=== PATIENT | female | born 1980 | race Caucasian/White ===

== ENCOUNTER 2020-08-06 08:07 | Emergency (ER) | payer OTHER, SELFPAY ==
[2020-08-06 09:06] VITALS: BP 147/69; PULSE 67; RESP 16; TEMP 37.1; O2SAT 98; BMI 30.2
--- NOTE | 2020-08-06 09:50 | ED_ITS ---
HPI - Skin/Abscess/Foreign Bdy General Chief complaint: Skin/Abscess/Foreign Body Stated complaint: allergic reaction Time Seen by Provider: 08/06/20 09:07 Source: patient Mode of arrival: ambulatory History of Present Illness HPI narrative: For 10-year-old female with a past medical history of asthma presenting to the ED complaining of erythematous scaly rash to chest/back and buttocks since yesterday. Reports mildly uncomfortable, denies fever, chills, lesions in mouth, recent travel, tick/insect bites, new exposures, new or worsening SOB MD complaint: rash Onset (ago): day(s) Related Data Previous Rx's Medication Instructions Recorded triamcinolone acetonide 1 appl TOPICAL BID #80 g 08/06/20 Allergies Allergy/AdvReac Type Severity Reaction Status Date / Time Sulfa (Sulfonamide Allergy Mild ITCHING Unverified 04/11/20 15:08 Antibiotics) [SULFA(SULFONAMIDE ANTIBIOTICS)] naproxen [NAPROXEN] AdvReac Unknown NAUSEA Unverified 04/11/20 15:08 Review of Systems Review of Systems: Constitutional: No Weight loss, No Fever, No Chills ENT/Mouth: No Nasal Congestion, No Sinus Pain, No Hoarseness, No sore throat, No Swallowing Difficulty Cardiovascular: No Chest Pain, chronic SOB Respiratory: No Cough, No Wheezing Musculoskeletal: No joint pain, No Myalgias, No Joint Swelling Skin: No Skin Lesions, + rash Yes all other systems are reviewed and are negative [facility] Past Medical History Attestation statement: The following information was validated with the patient. Medical History (Updated 08/06/20 @ 09:52 by EB Zhu) Asthma Social History Social History Advance Directives: No Advance Directives Information Provided: Yes Physical Exam Vital Signs: Vital Signs: Last Vital Signs Temp 98.7 F 08/06/20 09:06 Pulse 67 08/06/20 09:06 Resp 16 08/06/20 09:06 BP 147/69 H 08/06/20 09:06 Pulse Ox 98 08/06/20 09:06 Body Mass Index 30.2 Const: General: cooperative and healthy appearing Orientation/consciousness: patient oriented x3 Limitations: no limitations HENMT: Head: Yes normal to inspection Ears: hearing grossly normal bilaterally General nose exam: Normal external nose present Face and sinus: Yes normal facial exam Eyes: General: appearance normal, both eyes and all related structures EOM: EOMs intact bilaterally Neck: Neck: Yes normal visual inspection and Yes no meningeal signs Resp: Effort & Inspection: normal respiratory effort, no stridor and not tachypneic Cardio: Rate: regular rate GI: Inspection: Yes normal to inspection Skin: Other: Generalized erythematous macules and papules noted to chest, abdomen, back with Syndros scaling. One lesion on buttock. No surrounding cellulitis, no fluctuance or induration. Spares palms and soles. No mucous membrane involvement Rashes: rashes noted Wounds: no wounds Neuro: General: patient oriented x3 and no meningeal signs Gait exam (Neuro): Normal gait present Extrem: General: Yes normal to inspection MDM - Skin/Abscess/Foreign Bdy MDM Narrative Medical decision making narrative: On exam VSS, NAD/nontoxic-appearing, rash consistent with pityriasis rosea vs ? Contact dermatitis. Discharge Plan Discharge Clinical Impression: Pityriasis rosea Patient Disposition: Home, Self-Care Instructions: Acute Rash (ED) Additional Instructions: Your rash is most consistent with pityriasis rosea, this is a self-limiting rash, topical triamcinolone ointment will help with the itching/rash Wash her hands after use, do not apply to face, or genital area as has potential to discolor skin He should also take Benadryl at night, and Zyrtec during the day If rash persists or is worsening, you have fever, or areas in her mouth, shortness of breath return to the ED Follow-up with medical office rep and her primary care doctor Prescriptions: New triamcinolone acetonide 0.025 % ointment 1 appl topical BID Qty: 80 RF: 0 Referrals: Elizabeth Benavides PA [Physician Webbing Inspector] - 2 days Devante Theodore MD [Physician] - 2 days
== END 2020-08-06 10:00 | disposition home or self-care (01) ==
PROVIDERS: Emergency Provider Emergency Medicine Emergency Medical Services; PCP Internal Medicine
DX: L42 Pityriasis rosea (principal)
CPT/HCPCS: 99283

== ENCOUNTER 2020-10-30 09:16 | Emergency (ER) | payer OTHER, SELFPAY ==
--- NOTE | ~2020-10-30 | XR_ITS ---
EXAMINATION: XR LUMBOSACRAL SPINE CLINICAL INFORMATION: Low back pain COMPARISON: None TECHNIQUE: Three views of the lumbosacral spine. FINDINGS: There are 5 nonrib bearing lumbar vertebra. There is mild scoliosis convex left. No acute fracture, spondylolisthesis, spondylolysis identified. There is some increased density about the L5-S1 facet joints bilaterally consistent with some degree of facet arthropathy. There is a limbus vertebra involving the anterior superior aspect of the L2 vertebra. Sacroiliac joints unremarkable. Pedicles intact. XR/XR lumbar spine 2-3V IMPRESSION: No acute fracture, spinal listhesis, or spondylolysis. Facet arthropathy bilaterally at the L5-S1 level with mild scoliosis.
[2020-10-30 09:25] VITALS: BP 103/51; PULSE 81; RESP 14; TEMP 36.5; O2SAT 97; BMI 31.5
--- NOTE | 2020-10-30 10:10 | ED.BACK ---
HPI - Back Pain/Injury General Chief Complaint: Back Pain/Injury Stated Complaint: back pain Time Seen by Provider: 10/30/20 09:49 Source: patient Mode of arrival: ambulatory Limitations: no limitations History of Present Illness HPI Narrative: 40 y/o female with history of chronic low back pain presents with 2 days of worsening non-traumatic low back pain. She denies injury or heavy lifting. She states the pain does not radiate and she denies numbness, tingling or weakness in her legs. She feels a bump in the middle of her lower back that is tender to touch. She states the pain was so bad this morning she could barely get out of bed. She took ibuprofen with no improvement last night. She denies incontinence. No fevers or history of IVDA. MD elicited complaint: back pain Pertinent past history: prior back pain Onset (ago): day(s) (2) Timing: constant and progressively worsening Severity: severe Similar Symptoms Previously: Yes Quality: aching and spasming Location: lumbar spine, right lower back and left lower back Radiation: none Exacerbating factors: movement, walking and coughing/sneezing Relieving factors: immobilization Context: unknown Associated symptoms: denies other symptoms Treatments prior to arrival: cold therapy Work related injury: No Related Data Previous Rx's Medication Instructions Recorded triamcinolone acetonide 1 appl TOPICAL BID #80 g 08/06/20 cyclobenzaprine 10 mg PO TID PRN #10 tab 10/30/20 hydrocodone-acetaminophen 1 tab PO Q6H PRN #8 tab 10/30/20 ibuprofen 600 mg PO Q8H PRN #20 tab 10/30/20 lidocaine [Lidoderm] 1 patch TOPICAL DAILY #15 ea 10/30/20 Allergies Allergy/AdvReac Type Severity Reaction Status Date / Time Sulfa (Sulfonamide Allergy Mild ITCHING Unverified 04/11/20 15:08 Antibiotics) [SULFA(SULFONAMIDE ANTIBIOTICS)] naproxen [NAPROXEN] AdvReac Unknown NAUSEA Unverified 04/11/20 15:08 Review of Systems Review of Systems: Constitutional: No Fever, No Chills Cardiovascular: No Chest Pain Respiratory: No Cough, No Sputum Gastrointestinal: No Nausea, No Vomiting, No Diarrhea, No abdominal Pain Genitourinary: No Dysuria, No Urinary Frequency, No Hematuria, No incontinence Musculoskeletal: + joint pain, + Myalgias Skin: No Skin Lesions, No rash Neuro: No Weakness, No Numbness Heme/Lymph: No Bruising, No Lymphadenopathy PMFSH Past Medical History Attestation statement: The following information was validated with the patient. Medical History Anxiety Asthma Depression Social History Social History Smoked in Last 30 Days: No Use of substances other than those prescribed or required for medical reasons: No Advance Directives: No Advance Directives Information Provided: No Physical Exam Vital Signs: Vital Signs: Last Vital Signs Temp 97.7 F 10/30/20 09:25 Pulse 81 10/30/20 09:25 Resp 14 10/30/20 09:25 BP 103/51 L 10/30/20 09:25 Pulse Ox 97 10/30/20 09:25 Body Mass Index 31.5 Appearance: Alert. Oriented X3. No acute distress. HEENT: normal inspection CVS: Normal heart rate and rhythm. Pulses normal. Respiratory: No respiratory distress. Skin: Skin warm and dry. Normal skin color. Normal skin turgor. No rashes. Extremities: atraumatic, no edema Back: bilateral middle lumbar area with soft tissue tenderness and palpable spasm of the lumbar fascia centrally with tenderness. limited spinal flexion due to pain Neuro: Oriented X 3. No motor deficit. No sensory deficit. Ambulates with slow but steady gait Course Course Course Narrative: 40 y/o female presenting with acute on chronic LBP. No red flag symptoms. No neurological deficits. Will get lumbar spine XR, medicate and ressess. Reevaluation(s) Reevaluation #1: XR negative. Symptoms slightly improved with muscle relaxer and NSAID. Her pain is likely due to muscular strain and spasm. Will treat symptomatically and have her follow up with her PCP. Warning signs to return were reviewed. Stable for d/c. MDM - Back Pain/Injury Differential Diagnosis Differential diagnosis: Likely lumbar radiculopathy, sciatica, strain of lumbar region, thoracic back pain and discitis Critical Care Time Critical Care Time Critical Care Time: No Discharge Plan Discharge Clinical Impression: Strain of lumbar region Qualifiers: Encounter type: initial encounter Qualified Code(s): S39.012A - Strain of muscle, fascia and tendon of lower back, initial encounter Patient Disposition: Home, Self-Care Instructions: Low Back Strain (ED), Lower Back Exercises (ED) Additional Instructions: Your x-ray today was normal. Your pain is likely due to muscular strain and spasm. No bending, lifting or twisting. Use ice several times per day for 20 minutes at a time for the next 48 hours and then change to heat. Take medications as prescribed to help with pain and discomfort. Follow up with your Primary Care Doctor this week. If your pain worsens, if you develop new numbness, tingling, weakness, loss of function or incontinence call 911 or come back to the ER right away for evaluation. Prescriptions: New cyclobenzaprine 10 mg tablet 10 mg PO TID PRN (Reason: muscle spasm) Qty: 10 RF: 0 lidocaine [Lidoderm] 5 % adhesive patch,medicated 1 patch topical DAILY Qty: 15 RF: 0 ibuprofen 600 mg tablet 600 mg PO Q8H PRN (Reason: pain) Qty: 20 RF: 0 hydrocodone-acetaminophen 5-325 mg tablet 1 tab PO Q6H PRN (Reason: pain) Qty: 8 RF: 0 No Action triamcinolone acetonide 0.025 % ointment 1 appl topical BID Qty: 80 RF: 0
[2020-10-30] MEDS: Cyclobenzaprine HCl 10 MG TABLET PO (10:26)
[2020-10-30] MEDS: Lidocaine 4 % Patch ADH..PATCH 1 PATCH TRANSDERMA (10:26)
[2020-10-30] MEDS: Ketorolac Tromethamine 30 MG/ML VIAL IM (10:27)
== END 2020-10-30 11:51 | disposition home or self-care (01) ==
PROVIDERS: Emergency Provider Emergency Medicine Emergency Medical Services; PCP Internal Medicine
DX: S39.012A Strain of muscle, fascia and tendon of lower back, initial encounter (principal); X58.XXXA Exposure to other specified factors, initial encounter; Y93.9 Activity, unspecified; Y92.9 Unspecified place or not applicable; Y99.9 Unspecified external cause status
CPT/HCPCS: 72100; 96372; 99283; 99284; J1885

== ENCOUNTER 2022-06-25 13:41 | Emergency (ER) | payer OTHER, SELFPAY ==
--- NOTE | ~2022-06-25 | US_ITS ---
EXAMINATION: US VENOUS WITH DOPPLER UPPER EXTREMITY, LEFT CLINICAL INFORMATION: Left arm pain. Question DVT COMPARISON: None TECHNIQUE: Ultrasound of the upper extremity is performed using compression sonography and color and pulse Doppler flow with assessment of augmentation of flow. There is also imaging and Doppler assessment of the jugular and subclavian veins. Spectral analysis with color-flow imaging is performed. FINDINGS: Respiratory variation, normal compression, and augmented flow are noted throughout the upper extremity including the axillary, brachial, cubital, and radial and ulnar veins. There is normal flow in the internal jugular and subclavian veins. There is no visible deep or superficial thrombophlebitis. If the patient's symptoms progress, a followup ultrasound in 5 -7 days might be of value to exclude proximal propagation from a nonvisualized distal arm vein. US/US venous duplex UE LT IMPRESSION: No DVT demonstrated in the left upper extremity.
--- NOTE | ~2022-06-25 | XR_ITS ---
EXAMINATION: XR FOREARM, LEFT CLINICAL INFORMATION: Pain. COMPARISON: None TECHNIQUE: AP and lateral views of the left forearm were obtained. FINDINGS: The bones and soft tissues are normal. No fracture. Imaged portions of the elbow and wrist are unremarkable. XR/XR forearm LT 2V IMPRESSION: Normal left forearm.
[2022-06-25 14:25] VITALS: BP 146/71; PULSE 81; RESP 16; TEMP 36.6; O2SAT 97; BMI 34.0
--- NOTE | 2022-06-25 14:27 | ECG_ITS ---
Test Reason : l arm pain Blood Pressure : / mmHG Vent. Rate : 078 BPM Atrial Rate : 078 BPM P-R Int : 136 ms QRS Dur : 088 ms QT Int : 392 ms P-R-T Axes : 046 005 -03 degrees QTc Int : 446 ms Poor data quality Normal sinus rhythm Possible Anterior infarct , age undetermined Abnormal ECG When compared with ECG of 15-APR-2020 11:55, Inverted T waves have replaced nonspecific T wave abnormality in Inferior leads Referred By: Alexx Saul Electronically Signed By:Ck Bustillos
--- NOTE | 2022-06-25 14:28 | ED.EXTPRO ---
HPI - Extremity Problem General Chief complaint: Extremity Injury, Upper <EB Sierra - Last Filed: 06/28/22 09:50> Stated complaint: l arm pain <EB Sierra - Last Filed: 06/28/22 09:50> Time Seen by Provider: 06/25/22 14:25 <EB Sierra - Last Filed: 06/28/22 09:50> Source: patient <Priscilla Vaughn BREN Reese - Last Filed: 06/25/22 17:42> Mode of arrival: ambulatory <Priscilla Johana Reese CNP - Last Filed: 06/25/22 17:42> Limitations: no limitations <Priscilla Reese CNP - Last Filed: 06/25/22 17:42> History of Present Illness HPI Narrative: Patient is a 42-year-old female who presents to emergency department for evaluation of left elbow pain. She states that the pain starts at the elbow and radiates to the forearm. Onset of pain was about 3-4 days ago. She denies any known injury. 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 She denies any redness, deformity, rashes, wounds, lesions. Denies any numbness or tingling to the extremity. She states that she has an appointment with her primary care provider next week, in further states that she came to the emergency department with her significant other who was being seen so she thought she would have this evaluated here. Denies any chest pain, palpitations, shortness of breath, difficulty breathing <Priscilla Reese CNP - Last Filed: 06/25/22 17:42> Related Data Home medications: Previous Rx's Medication Instructions Recorded triamcinolone acetonide 0.025 % 1 appl topical BID #80 grams 08/06/20 topical ointment cyclobenzaprine 10 mg tablet 10 mg PO TID PRN muscle spasm #10 10/30/20 tabs hydrocodone 5 mg-acetaminophen 325 1 tab PO Q6H PRN pain #8 tabs 10/30/20 mg tablet ibuprofen 600 mg tablet 600 mg PO Q8H PRN pain #20 tabs 10/30/20 lidocaine 5 % topical patch 1 patch topical DAILY #15 ea 10/30/20 (Lidoderm) <EB Sierra - Last Filed: 06/28/22 09:50> Allergies/Adverse reactions: Allergies Allergy/AdvReac Type Severity Reaction Status Date / Time Sulfa (Sulfonamide Allergy Mild ITCHING Unverified 04/11/20 15:08 Antibiotics) [SULFA(SULFONAMIDE ANTIBIOTICS)] naproxen [NAPROXEN] AdvReac Unknown NAUSEA Unverified 04/11/20 15:08 <EB Sierra - Last Filed: 06/28/22 09:50> Review of Systems Review of Systems: Musculoskeletal: Positive left arm pain as noted in HPI <Priscilla Reese CNP - Last Filed: 06/25/22 17:42> [facility] Past Medical History Attestation statement: The following information was validated with the patient. <Priscilla Reese CNP - Last Filed: 06/25/22 17:42> Source: old records reviewed <Priscilla Reese CNP - Last Filed: 06/25/22 17:42> Medical History: Medical History Anxiety Asthma Depression <EB Sierra - Last Filed: 06/28/22 09:50> Social History Social History: Social History Advance Directives: No Advance Directives Information Provided: No <EB Sierra - Last Filed: 06/28/22 09:50> Physical Exam Vital Signs: Vital Signs: Last Vital Signs Temp 98 F 06/25/22 14:25 Pulse 81 06/25/22 14:25 Resp 16 06/25/22 14:25 BP 146/71 H 06/25/22 14:25 Pulse Ox 97 06/25/22 14:25 O2 Del Method 06/25/22 14:25 BMI result Body Mass Index 34.0 <EB Sierra - Last Filed: 06/28/22 09:50> Vital Signs: Last Vital Signs Temp 98 F 06/25/22 14:25 Pulse 81 06/25/22 14:25 Resp 16 06/25/22 14:25 BP 146/71 H 06/25/22 14:25 Pulse Ox 97 06/25/22 14:25 O2 Del Method 06/25/22 14:25 BMI result Body Mass Index 34.0 <Priscilla Reese CNP - Last Filed: 06/25/22 17:42> Appearance: Alert.?Oriented to person, place and time. No acute distress.?Normal affect. Eyes: Pupils equal, round and reactive to light.? ENT: Pharynx normal.?? Neck: Normal inspection.? Neck supple.?? CVS: Heart sounds normal. Normal heart rate and rhythm.? Pulses normal.?? Respiratory: No respiratory distress.? Lung sounds clear to auscultation bilaterally?? Abdomen: Soft and non-tender. Skin: Skin warm and dry.? Normal skin color.? Normal skin turgor.?? Extremities: No lower extremity edema.? Mild localized swelling over the medial epicondyle of left elbow, no erythema, no warmth. Tenderness upon palpation over the medial epicondyle, worsening pain with resisted wrist flexion and passive extension. 2+ radial pulse Neuro: Moves all extremities spontaneously. Sensation intact bilaterally. No focal neuro deficits. Ambulates with normal steady gait. <Priscilla Reese CNP - Last Filed: 06/25/22 17:42> Course Course Course Narrative: SUNIL; presents to the ED for left arm pain without trauma. no chest or neck pain. states feel swollen. patient states no trauma. Arm she states feel swollen. negative for any ertyhema, ecchymosis, or deformity. positive for forearm and anticupbital tendernss. EKG, labs, and US of arm ordered. <EB Sierra - Last Filed: 06/28/22 09:50> Reevaluation(s) Reevaluation #1: Patient is a 42-year-old female who presents emergency department for evaluation of atraumatic left forearm/elbow pain. Reviewed RME above. Patient is well-appearing at the time of examination, full range of motion to left elbow, wrist, and shoulder. Extremities neurovascularly intact distally. Not consistent with any septic arthritis. Reviewed labs, CBC, coags, CMP overall unremarkable. Troponin <3.5, EKG revealing normal sinus rhythm without acute ischemic findings, do not suspect left arm pain to be secondary to ACS at this time. XR reveals no acute abnormalities, ultrasound is negative for DVT. History and physical examination most consistent with tendinopathy of the medial elbow. Advised rest, avoidance of exacerbating factors, NSAID as an anti-inflammatory in addition to Tylenol, OTC elbow braces from pharmacy, outpatient follow-up primary care provider. Reviewed worrisome signs and symptoms to return back to the emergency department for. All questions answered. She was discharged in stable condition. <Priscilla Reese CNP - Last Filed: 06/25/22 17:42> Time: 17:29 <Priscilla Reese CNP - Last Filed: 06/25/22 17:42> MDM - Extremity (Nontraumatic) Medical Records Attestation: I reviewed the patient's medical records. <Priscilla Reese CNP - Last Filed: 06/25/22 17:42> Lab Data Attestation: I reviewed the patient's lab results. <Priscilla Reese CNP - Last Filed: 06/25/22 17:42> Result diagrams: : 06/25/22 14:44 06/25/22 14:44 <EB Sierra - Last Filed: 06/28/22 09:50> Labs: Lab Results 06/25/22 06/25/22 06/25/22 Range/Units 14:44 14:44 14:44 WBC 6.9 (4.8-10.8) X10*3/uL RBC 4.46 (4.20-5.50) X10*6/uL Hgb 12.9 (12.0-16.0) g/dl Hct 39.9 (37.0-47.0) % MCV 89.5 (80.0-98.0) fL MCH 28.9 (27.0-33.0) pg MCHC 32.3 (31.0-35.0) g/dl RDW 12.9 (11.0-16.0) % Plt Count 267 (160-400) X10*3/uL MPV 10.8 (9.4-12.3) fL Immature Gran % (Auto) 0.3 (0.0-0.4) % Neut % (Auto) 53.7 (45-73) % Lymph % (Auto) 36.9 (20-40) % Campbell % (Auto) 6.9 (2-11) % Eos % (Auto) 1.8 (0-4) % Baso % (Auto) 0.4 (0-2) % Lymph # (Auto) 2.5 (1.2-4.9) X10*3/uL Campbell # (Auto) 0.5 (0.1-1.2) X10*3/uL Eos # (Auto) 0.1 (0.0-0.4) X10*3/uL Baso # (Auto) 0.0 (0.0-0.2) X10*3/uL Abs Immat Gran (auto) 0.02 (0.00-0.03) X10*3/uL Absolute Neuts (auto) 3.7 (2.0-8.3) x10*3/uL Absolute Nucleated RBC 0.000 (0.0-0.012) X10*3/uL Nucleated RBC % (auto) 0.0 (0.0-0.2) /100WBC PT 10.5 (10.0-13.1) SEC INR 0.9 (0.9-1.1) APTT 33.1 (26.0-36.4) SEC Sodium 138 (135-145) mmol/L Potassium 4.2 (3.3-5.1) mmol/L Chloride 106 (96-108) mmol/L Carbon Dioxide 25 (22-29) mmol/L Anion Gap 11 L (12-20) BUN 18 H (9-16) mg/dL Creatinine 0.78 (0.5-1.4) mg/dL Estim Creat Clear Calc 91.9 Estimated GFR > 60 Random Glucose 122 H (60-115) mg/dL Calcium 9.8 (8.4-10.2) mg/dL Total Bilirubin 0.2 (0.0-1.0) mg/dL AST 11 (5-31) U/L ALT 17 (0-31) U/L Alkaline Phosphatase 110 (39-117) U/L Total Creatine Kinase 49 (26-140) U/L Troponin I High Sens (<3.5-17.0) ng/L Total Protein 6.9 (6.5-8.0) g/dL Albumin 4.0 (3.5-5.0) g/dL 12/01/22 Range/Units 14:44 WBC (4.8-10.8) X10*3/uL RBC (4.20-5.50) X10*6/uL Hgb (12.0-16.0) g/dl Hct (37.0-47.0) % MCV (80.0-98.0) fL MCH (27.0-33.0) pg MCHC (31.0-35.0) g/dl RDW (11.0-16.0) % Plt Count (160-400) X10*3/uL MPV (9.4-12.3) fL Immature Gran % (Auto) (0.0-0.4) % Neut % (Auto) (45-73) % Lymph % (Auto) (20-40) % Campbell % (Auto) (2-11) % Eos % (Auto) (0-4) % Baso % (Auto) (0-2) % Lymph # (Auto) (1.2-4.9) X10*3/uL Campbell # (Auto) (0.1-1.2) X10*3/uL Eos # (Auto) (0.0-0.4) X10*3/uL Baso # (Auto) (0.0-0.2) X10*3/uL Abs Immat Gran (auto) (0.00-0.03) X10*3/uL Absolute Neuts (auto) (2.0-8.3) x10*3/uL Absolute Nucleated RBC (0.0-0.012) X10*3/uL Nucleated RBC % (auto) (0.0-0.2) /100WBC PT (10.0-13.1) SEC INR (0.9-1.1) APTT (26.0-36.4) SEC Sodium (135-145) mmol/L Potassium (3.3-5.1) mmol/L Chloride (96-108) mmol/L Carbon Dioxide (22-29) mmol/L Anion Gap (12-20) BUN (9-16) mg/dL Creatinine (0.5-1.4) mg/dL Estim Creat Clear Calc Estimated GFR Random Glucose (60-115) mg/dL Calcium (8.4-10.2) mg/dL Total Bilirubin (0.0-1.0) mg/dL AST (5-31) U/L ALT (0-31) U/L Alkaline Phosphatase (39-117) U/L Total Creatine Kinase (26-140) U/L Troponin I High Sens < 3.5 (<3.5-17.0) ng/L Total Protein (6.5-8.0) g/dL Albumin (3.5-5.0) g/dL <EB Sierra - Last Filed: 06/28/22 09:50> Lab Results 06/25/22 06/25/22 06/25/22 Range/Units 14:44 14:44 14:44 WBC 6.9 (4.8-10.8) X10*3/uL RBC 4.46 (4.20-5.50) X10*6/uL Hgb 12.9 (12.0-16.0) g/dl Hct 39.9 (37.0-47.0) % MCV 89.5 (80.0-98.0) fL MCH 28.9 (27.0-33.0) pg MCHC 32.3 (31.0-35.0) g/dl RDW 12.9 (11.0-16.0) % Plt Count 267 (160-400) X10*3/uL MPV 10.8 (9.4-12.3) fL Immature Gran % (Auto) 0.3 (0.0-0.4) % Neut % (Auto) 53.7 (45-73) % Lymph % (Auto) 36.9 (20-40) % Campbell % (Auto) 6.9 (2-11) % Eos % (Auto) 1.8 (0-4) % Baso % (Auto) 0.4 (0-2) % Lymph # (Auto) 2.5 (1.2-4.9) X10*3/uL Campbell # (Auto) 0.5 (0.1-1.2) X10*3/uL Eos # (Auto) 0.1 (0.0-0.4) X10*3/uL Baso # (Auto) 0.0 (0.0-0.2) X10*3/uL Abs Immat Gran (auto) 0.02 (0.00-0.03) X10*3/uL Absolute Neuts (auto) 3.7 (2.0-8.3) x10*3/uL Absolute Nucleated RBC 0.000 (0.0-0.012) X10*3/uL Nucleated RBC % (auto) 0.0 (0.0-0.2) /100WBC PT 10.5 (10.0-13.1) SEC INR 0.9 (0.9-1.1) APTT 33.1 (26.0-36.4) SEC Sodium 138 (135-145) mmol/L Potassium 4.2 (3.3-5.1) mmol/L Chloride 106 (96-108) mmol/L Carbon Dioxide 25 (22-29) mmol/L Anion Gap 11 L (12-20) BUN 18 H (9-16) mg/dL Creatinine 0.78 (0.5-1.4) mg/dL Estim Creat Clear Calc 91.9 Estimated GFR > 60 Random Glucose 122 H (60-115) mg/dL Calcium 9.8 (8.4-10.2) mg/dL Total Bilirubin 0.2 (0.0-1.0) mg/dL AST 11 (5-31) U/L ALT 17 (0-31) U/L Alkaline Phosphatase 110 (39-117) U/L Total Creatine Kinase 49 (26-140) U/L Troponin I High Sens (<3.5-17.0) ng/L Total Protein 6.9 (6.5-8.0) g/dL Albumin 4.0 (3.5-5.0) g/dL 06/25/22 Range/Units 14:44 WBC (4.8-10.8) X10*3/uL RBC (4.20-5.50) X10*6/uL Hgb (12.0-16.0) g/dl Hct (37.0-47.0) % MCV (80.0-98.0) fL MCH (27.0-33.0) pg MCHC (31.0-35.0) g/dl RDW (11.0-16.0) % Plt Count (160-400) X10*3/uL MPV (9.4-12.3) fL Immature Gran % (Auto) (0.0-0.4) % Neut % (Auto) (45-73) % Lymph % (Auto) (20-40) % Campbell % (Auto) (2-11) % Eos % (Auto) (0-4) % Baso % (Auto) (0-2) % Lymph # (Auto) (1.2-4.9) X10*3/uL Campbell # (Auto) (0.1-1.2) X10*3/uL Eos # (Auto) (0.0-0.4) X10*3/uL Baso # (Auto) (0.0-0.2) X10*3/uL Abs Immat Gran (auto) (0.00-0.03) X10*3/uL Absolute Neuts (auto) (2.0-8.3) x10*3/uL Absolute Nucleated RBC (0.0-0.012) X10*3/uL Nucleated RBC % (auto) (0.0-0.2) /100WBC PT (10.0-13.1) SEC INR (0.9-1.1) APTT (26.0-36.4) SEC Sodium (135-145) mmol/L Potassium (3.3-5.1) mmol/L Chloride (96-108) mmol/L Carbon Dioxide (22-29) mmol/L Anion Gap (12-20) BUN (9-16) mg/dL Creatinine (0.5-1.4) mg/dL Estim Creat Clear Calc Estimated GFR Random Glucose (60-115) mg/dL Calcium (8.4-10.2) mg/dL Total Bilirubin (0.0-1.0) mg/dL AST (5-31) U/L ALT (0-31) U/L Alkaline Phosphatase (39-117) U/L Total Creatine Kinase (26-140) U/L Troponin I High Sens < 3.5 (<3.5-17.0) ng/L Total Protein (6.5-8.0) g/dL Albumin (3.5-5.0) g/dL <Priscilla Reese CNP - Last Filed: 06/25/22 17:42> Imaging Data Venous US: Radiologist's impression: US/US venous duplex UE LT IMPRESSION: No DVT demonstrated in the left upper extremity. <Priscilla Reese CNP - Last Filed: 06/25/22 17:42> XR forearm: Radiologist's impression: XR/XR forearm LT 2V IMPRESSION: Normal left forearm. <Priscilla Reese CNP - Last Filed: 06/25/22 17:42> ECG Data Attestation EKG: I personally reviewed and interpreted this ECG as follows: <Priscilla Reese CNP - Last Filed: 06/25/22 17:42> ECG interpretation date: 06/25/22 <Priscilla Reese CNP - Last Filed: 06/25/22 17:42> Interpretation: Rate: 78 Rhythm:? Normal sinus rhythm [place]:? Normal Normal P waves.? Normal CHRIS.?? Normal QRS complex.?? ST T wave :??No ST elevation, no ST depression qTC: 446 prior studies:? None available for review The study has been interpreted contemporaneously by me. <Priscilla Reese CNP - Last Filed: 06/25/22 17:42> Discharge Plan Discharge Clinical Impression: Left elbow tendinitis <EB Sierra - Last Filed: 06/28/22 09:50> Patient Disposition: Home, Self-Care <EB Sierra - Last Filed: 06/28/22 09:50> Instructions: Tennis Elbow (ED) <EB Sierra - Last Filed: 06/28/22 09:50> Additional Instructions: You can take ibuprofen 200 mg, 3 tablets (600mg) every 6-8 hours as needed for pain, in addition to Tylenol 500 mg, 2 tablets (1,000mg) every 4-6 hours as needed for pain, but not to exceed 3 doses daily (3,000mg).? OTC braces for elbow from pharmacy. Follow-up with your primary care provider as needed <BE Sierra - Last Filed: 06/28/22 09:50> Prescriptions: No Action triamcinolone acetonide 0.025 % ointment 1 appl topical BID Qty: 80 0RF cyclobenzaprine 10 mg tablet 10 mg PO TID PRN (Reason: muscle spasm) Qty: 10 0RF lidocaine [Lidoderm] 5 % adhesive patch,medicated 1 patch topical DAILY Qty: 15 0RF Rx Instructions: leave on most painful area for up to 12 hrs ibuprofen 600 mg tablet 600 mg PO Q8H PRN (Reason: pain) Qty: 20 0RF hydrocodone-acetaminophen 5-325 mg tablet 1 tab PO Q6H PRN (Reason: pain) Qty: 8 0RF Rx Instructions: for 3 days <EB Sierra - Last Filed: 06/28/22 09:50> Referrals: Physician,Unknown J [Primary Care Provider] - <EB Sierra - Last Filed: 06/28/22 09:50> Interventions: ED Discharge Assessment Last Done: 06/25/22 17:52 <EB Sierra - Last Filed: 06/28/22 09:50> Discharge Date/Time: 06/25/22 17:53 <EB Sierra - Last Filed: 06/28/22 09:50>
[2022-06-25 14:49] LABS: MANUAL DIFF FLAG NO
[2022-06-25 14:51] LABS: Basophils Percent Auto 0.4 % (0-2); Eosinophils Absolute Auto 0.1 X10*3/uL (0.0-0.4); Eosinophils Percent Auto 1.8 % (0-4); Hematocrit 39.9 % (37.0-47.0); Hemoglobin 12.9 g/dl (12.0-16.0); Imm Gran Abs Auto 0.02 X10*3/uL (0.00-0.03); Imm Gran Pct Auto 0.3 % (0.0-0.4); Lymphocytes Absolute Auto 2.5 X10*3/uL (1.2-4.9); Lymphocytes Percent Auto 36.9 % (20-40); Mean Corpuscular HGB Conc 32.3 g/dl (31.0-35.0); Mean Corpuscular Hemoglobin 28.9 pg (27.0-33.0); Mean Corpuscular Volume 89.5 fL (80.0-98.0); Mean Platelet Volume 10.8 fL (9.4-12.3); Monocytes Absolute Auto 0.5 X10*3/uL (0.1-1.2); Monocytes Percent Auto 6.9 % (2-11); Neutrophils Absolute Auto 3.7 x10*3/uL (2.0-8.3); Neutrophils Percent Auto 53.7 % (45-73); Platelet Count 267 X10*3/uL (160-400); Red Blood Count 4.46 X10*6/uL (4.20-5.50); Red Cell Distribution Width 12.9 % (11.0-16.0); White Blood Count 6.9 X10*3/uL (4.8-10.8)
[2022-06-25 14:58] LABS: INTERNATIONAL NORM RATIO 0.9 (0.9-1.1); Prothrombin Time 10.5 SEC (10.0-13.1)
[2022-06-25 15:00] LABS: Partial Thromboplastin Time 33.1 SEC (26.0-36.4)
[2022-06-25 15:21] LABS: Alanine Aminotransferase 17 U/L (0-31); Alkaline Phosphatase 110 U/L (39-117); Anion Gap 11 (12-20); Aspartate Amino Transferase 11 U/L (5-31); Bilirubin Total 0.2 mg/dL (0.0-1.0); Blood Urea Nitrogen 18 mg/dL (9-16); Calcium 9.8 mg/dL (8.4-10.2); Carbon Dioxide 25 mmol/L (22-29); Chloride 106 mmol/L (96-108); Creatinine Clr Calc Pharmacy 91.9; Estimated Glomerular Filt Rate > 60; Glucose Random 122 mg/dL (60-115); Potassium 4.2 mmol/L (3.3-5.1); Sodium 138 mmol/L (135-145); Total Protein 6.9 g/dL (6.5-8.0)
[2022-06-25 15:28] LABS: Troponin-I High Sensitivity < 3.5 ng/L (<3.5-17.0)
== END 2022-06-25 17:53 | disposition home or self-care (01) ==
PROVIDERS: Physician Assistant; Emergency Provider Emergency Medicine
DX: M77.12 Lateral epicondylitis, left elbow (principal); M79.602 Pain in left arm
CPT/HCPCS: 36415; 73090; 80053; 82550; 84484; 85025; 85610; 85730; 93005; 93971; 99283; 99284

== ENCOUNTER 2023-01-29 08:06 | Emergency (ER) | payer OTHER, SELFPAY ==
--- NOTE | 2023-01-29 08:21 | ED.LOWEXIN ---
HPI - Extremity Injury (Lower) General Chief Complaint: Extremity Injury, Lower Stated Complaint: ankle injury Time Seen by Provider: 01/29/23 08:14 Source: patient, RN notes reviewed and old records reviewed Mode of arrival: ambulatory History of Present Illness HPI Narrative: 42-year-old female with no significant past medical history presenting to the ED complaining of right ankle pain radiating to right foot s/p jumping off pool ladder into pool yesterday and hitting ankle on ladder. Has been ambulatory since the incident with discomfort noted today. Denies injury to other area, trauma or LOC, numbness/tingling or weakness MD complaint: ankle injury and foot injury Onset (ago): day(s) Related Data Previous Rx's Medication Instructions Recorded triamcinolone acetonide 0.025 % 1 appl topical BID #80 grams 08/06/20 topical ointment cyclobenzaprine 10 mg tablet 10 mg PO TID PRN muscle spasm #10 10/30/20 tabs hydrocodone 5 mg-acetaminophen 325 1 tab PO Q6H PRN pain #8 tabs 10/30/20 mg tablet ibuprofen 600 mg tablet 600 mg PO Q8H PRN pain #20 tabs 10/30/20 lidocaine 5 % topical patch 1 patch topical DAILY #15 ea 10/30/20 (Lidoderm) Allergies Allergy/AdvReac Type Severity Reaction Status Date / Time Sulfa (Sulfonamide Allergy Mild ITCHING Verified 01/29/23 08:30 Antibiotics) [SULFA(SULFONAMIDE ANTIBIOTICS)] naproxen [NAPROXEN] AdvReac Unknown NAUSEA Verified 01/29/23 08:30 Review of Systems Review of Systems: Constitutional: No Fever, No Chills ENT/Mouth: No Ear Pain, No Nasal Congestion, No sore throat, No Rhinorrhea, No Swallowing Difficulty Cardiovascular: No Chest Pain, No SOB Respiratory: No Cough, No Sputum, No Wheezing Gastrointestinal: No Nausea, No Vomiting, No Abdominal pain Musculoskeletal: + joint pain, No Myalgias, + Joint Swelling Skin: No Skin Lesions, No rash Neuro: No Weakness, No Numbness, No Paresthesias Yes all other systems are reviewed and are negative Constitutional: Constitutional: Reports as per [facility] Past Medical History Attestation statement: The following information was validated with the patient. Source: old records reviewed Medical History Anxiety Asthma Depression Social History Social History Alcohol intake: current Alcohol intake frequency: holidays/special occasions only Smoked in Last 30 Days: No Use of substances other than those prescribed or required for medical reasons: No Advance Directives: No Patient : No Physical Exam Vital Signs: Vital Signs: Last Vital Signs Temp 98.3 F 01/29/23 08:30 Pulse 70 01/29/23 08:30 Resp 18 01/29/23 08:30 BP 102/62 01/29/23 08:30 Pulse Ox 96 01/29/23 08:30 O2 Del Method Room Air 01/29/23 08:30 BMI result Body Mass Index 28.9 Const: General: cooperative, healthy appearing and no acute distress Orientation/consciousness: patient oriented x3 Limitations: no limitations HEENT: Head: Yes normal to inspection and Yes atraumatic Ears: hearing grossly normal bilaterally General nose exam: Normal external nose present Face and sinus: Yes normal facial exam Eyes: General: appearance normal, both eyes and all related structures EOM: EOMs intact bilaterally Neck: Neck: Yes normal visual inspection and Yes no meningeal signs Resp: Effort & Inspection: normal respiratory effort and no respiratory distress Cardio: Rate: regular rate Peripheral pulses: dorsalis pedis present Skin: Rashes: no rashes Wounds: no wounds Neuro: General: patient oriented x3, tone normal and no meningeal signs Gait exam (Neuro): Normal gait present Extrem: Other: Right lateral malleolus with healing ecchymosis and slight swelling. + tenderness to palpation to right lateral malleolus. Foot nontender. NV intact. Limited ROM to ankle secondary to pain. right knee nontender Course Course Course Narrative: 910--XR foot RT min 3V/XR ankle RT min 3V IMPRESSION: Unremarkable right and ankle and right foot. > air cast applied for comfort & stability Results discussed with patient including worrisome signs and symptoms and strict return precautions, and when to return to the emergency department. They verbalized understanding and feel safe for discharge at this time. Medical Decision Making Medical Decision Making MDM Narrative: 42-year-old female with no significant past medical history presenting to the ED complaining of right ankle pain radiating to right foot s/p jumping off pool ladder into pool yesterday and hitting ankle on ladder. On exam vital signs stable, NAD, nontoxic appearing physical exam as noted above right ankle lateral malleolar ecchymosis with mild swelling and tenderness. Limited ROM secondary to pain. Neurovascular intact. Concern for ankle sprain/contusion vs fracture. Low suspicion for septic joint/arthritis Plan: X-rays Please refer to course for remaining clinical decision making, interpretation of labs/imaging results, and discussions with consultants and/or family members. Differential Diagnosis Differential Diagnoses: The differential diagnosis associated with the presentation includes As above Radiology Impression Discussion of test interpretation with radiology: I have reviewed the radiologist's reading. External Record Review External record reviewed: Inpatient record, Office record, Outpatient record, Prior outpatient labs, Prior outpatient radiology, Primary care record and Outside ED record Tests considered The following testing was considered but not selected: As above Discharge Plan Discharge Clinical Impression: Ankle sprain and strain Patient Disposition: Home, Self-Care Instructions: Ankle Sprain (DC) Additional Instructions: Your x-rays are unremarkable. You likely sprained her ankle Ice and elevate Take Tylenol and Motrin for pain/swelling healing wear Aircast as needed Follow-up with her doctor Is symptoms persist or worsen return to the ED Prescriptions: No Action triamcinolone acetonide 0.025 % ointment 1 appl topical BID Qty: 80 0RF cyclobenzaprine 10 mg tablet 10 mg PO TID PRN (Reason: muscle spasm) Qty: 10 0RF lidocaine [Lidoderm] 5 % adhesive patch,medicated 1 patch topical DAILY Qty: 15 0RF Rx Instructions: leave on most painful area for up to 12 hrs ibuprofen 600 mg tablet 600 mg PO Q8H PRN (Reason: pain) Qty: 20 0RF hydrocodone-acetaminophen 5-325 mg tablet 1 tab PO Q6H PRN (Reason: pain) Qty: 8 0RF Rx Instructions: for 3 days Referrals: Physician,Unknown J [Primary Care Provider] - 1 week Interventions: ED Discharge Assessment Last Done: 01/29/23 09:56 Discharge Date/Time: 01/29/23 09:56
[2023-01-29 08:30] VITALS: BP 102/62; PULSE 70; RESP 18; TEMP 36.8; O2SAT 96; BMI 28.9
== END 2023-01-29 09:56 | disposition home or self-care (01) ==
PROVIDERS: Emergency Provider Emergency Medicine Emergency Medical Services
DX: S93.401A Sprain of unspecified ligament of right ankle, initial encounter (principal); M79.671 Pain in right foot; W19.XXXA Unspecified fall, initial encounter; Y93.9 Activity, unspecified; Y92.9 Unspecified place or not applicable; Y99.9 Unspecified external cause status; Z79.899 Other long term (current) drug therapy
CPT/HCPCS: 73610; 73630; 99283

== ENCOUNTER 2023-03-07 10:31 | Emergency (ER) | payer OTHER, SELFPAY ==
[2023-03-07] VITALS (8 sets, daily range): BP systolic 90–112; BP diastolic 49–72; PULSE 64–83; RESP 14–19; TEMP 36.6–37; O2SAT 93–98; BMI 29.0
--- NOTE | ~2023-03-07 | XR_ITS ---
EXAMINATION: XR CHEST CLINICAL INFORMATION: SOB and cough COMPARISON: Chest 04/15/2020 TECHNIQUE: Frontal view of the chest was obtained. FINDINGS: The lungs are well-expanded with patchy opacity in the right middle lobe question atelectasis versus developing infiltrate. Heart size and pulmonary vascularity is normal. There is mild elevation of right hemidiaphragm. No gross bony abnormality seen. XR/XR chest 1V IMPRESSION: Patchy opacity right middle lobe question atelectasis versus developing infiltrate.
--- NOTE | 2023-03-07 11:35 | PC.NURSE ---
pt a&ox3, vss, pt comes in from home after having generalized weakness/pain x4 days. pt verbalizes nausea and dizziness but denies vomiting. pt states that it's hard for her to walk long distances because she becomes dizzy and has near syncopal episodes upon exertion. call call placed within reach. will continue to monitor.
--- NOTE | 2023-03-07 12:51 | ECG_ITS ---
Test Reason : near syncope Blood Pressure : / mmHG Vent. Rate : 068 BPM Atrial Rate : 068 BPM P-R Int : 122 ms QRS Dur : 092 ms QT Int : 416 ms P-R-T Axes : 026 007 024 degrees QTc Int : 442 ms Normal sinus rhythm Low voltage QRS Borderline ECG When compared with ECG of 25-JUN-2022 14:36, No significant change was found Referred By: Maneula Rabago Electronically Signed By:KARI MCCANN MD
--- NOTE | 2023-03-07 12:55 | ED_ITS ---
HPI - General Adult General Chief complaint: General Medical Stated complaint: Near syncope/Chills/SOB Time Seen by Provider: 03/07/23 12:51 Source: patient Mode of arrival: ambulatory Limitations: no limitations History of Present Illness HPI narrative: 41-year-old female with no significant medical history presents to the ER for evaluation of 4 days of not feeling well. She states on she woke up with diffuse body aches, subjective fevers and chills, headaches, intermittent shortness of breath. She reports intermittent dry cough as well. She states in the last 2 days she has had 2 episodes of where she almost passed out. She states she was standing at the time. She felt very weak and lightheaded. She did not syncopized. She states she has been extremely nauseous and had significant decreased p.o. intake. She has also had diarrhea but no vomiting. No blood in her diarrhea. She reports her friend who she owns a presents with has similar symptoms. MD complaint: Body aches, near-syncope Onset (ago): day(s) (4) Severity: moderate Quality: aching Pain Consistency: constant Relieving factors: rest Exacerbating factors: movement Associated symptoms: cough, fever/chills, headaches, loss of appetite, malaise, nausea/vomiting, shortness of breath and weakness Treatments prior to arrival: none Related Data Previous Rx's Medication Instructions Recorded triamcinolone acetonide 0.025 % 1 appl topical BID #80 grams 08/06/20 topical ointment cyclobenzaprine 10 mg tablet 10 mg PO TID PRN muscle spasm #10 10/30/20 tabs hydrocodone 5 mg-acetaminophen 325 1 tab PO Q6H PRN pain #8 tabs 10/30/20 mg tablet ibuprofen 600 mg tablet 600 mg PO Q8H PRN pain #20 tabs 10/30/20 lidocaine 5 % topical patch 1 patch topical DAILY #15 ea 10/30/20 (Lidoderm) amoxicillin 875 mg-potassium 1 tab PO BID #14 tabs 03/07/23 clavulanate 125 mg tablet ondansetron 4 mg disintegrating 4 mg PO Q8H PRN nausea and 03/07/23 tablet vomiting #7 tabs Allergies Allergy/AdvReac Type Severity Reaction Status Date / Time Sulfa (Sulfonamide Allergy Mild ITCHING Verified 03/07/23 10:36 Antibiotics) [SULFA(SULFONAMIDE ANTIBIOTICS)] naproxen [NAPROXEN] AdvReac Unknown NAUSEA Verified 03/07/23 10:36 Review of Systems Review of Systems: Yes all other systems are reviewed and are negative [facility] Past Medical History Medical History Anxiety Asthma Depression Social History Social History Alcohol intake: current Alcohol intake frequency: holidays/special occasions only Smoked in Last 30 Days: No Use of substances other than those prescribed or required for medical reasons: No Advance Directives: No Advance Directives Information Provided: Yes Patient : No Physical Exam ED Vital Signs: Vital Signs - 24 hr 03/07/23 10:36 03/07/23 11:22 03/07/23 13:17 Temperature 98 F 97.9 F Pulse Rate 80 70 64 Respiratory Rate 19 16 Blood Pressure 107/72 107/60 103/54 L Pulse Oximetry 98 93 Oxygen Delivery Method Room Air Room Air 03/07/23 13:25 03/07/23 13:23 03/07/23 13:24 Temperature Pulse Rate 83 68 83 Respiratory Rate 14 Blood Pressure 112/70 103/65 112/70 Pulse Oximetry 98 Oxygen Delivery Method Room Air 03/07/23 14:00 03/07/23 14:41 Temperature 98.5 F 98.6 F Pulse Rate 65 66 Respiratory Rate 16 18 Blood Pressure 90/49 L 97/55 L Pulse Oximetry 95 95 Oxygen Delivery Method Room Air Room Air BMI result Body Mass Index 29.0 Appearance: Alert. Oriented X3. No acute distress. Head: normocephalic, atraumatic. Eyes: Pupils equal, round and reactive to light. ENT: Pharynx normal. No tonsillar swelling or exudate. Neck: Normal inspection. Neck supple. CVS: Normal heart rate and rhythm. Pulses normal. Respiratory: No respiratory distress. Breath sounds normal. Abdomen: Soft and nontender. +BS x4 Skin: Skin warm and dry. Normal skin color. Normal skin turgor. No rashes. Extremities: No lower extremity edema. No joint swelling. Neuro/psych: Oriented X 3. No motor deficit. No sensory deficit. CN II-XII intact. Normal speech and cognition. Medications Administered Discontinued Medications Generic Name Dose Route Start Last Admin Trade Name Phani PRN Reason Stop Dose Admin Acetaminophen 975 mg 03/07/23 15:01 03/07/23 15:17 Acetaminophen 325 Mg Tablet PO 03/07/23 15:02 975 mg ONCE ONE Administration Sodium Chloride 1,000 mls @ 999 mls/hr 03/07/23 13:00 03/07/23 14:16 Ns IVCONT 03/07/23 14:00 Infused .Q1H1M JACKI Infusion Ketorolac Tromethamine 30 mg 03/07/23 15:01 03/07/23 15:17 Ketorolac Tromethamine 30 Mg/Ml Vial IVPUSH 03/07/23 15:02 30 mg ONCE ONE Administration Ondansetron HCl 4 mg 03/07/23 12:55 03/07/23 13:18 Ondansetron Hcl 4 Mg/2 Ml Vial IVPUSH 03/07/23 12:56 4 mg ONCE ONE Administration Medical Decision Making Medical Decision Making MDM Narrative: 42-year-old female presents to the ER for evaluation of 4 days of feeling unwell with symptoms including headache, body aches, shortness of breath, cough, nausea, vomiting, diarrhea, near syncope x2. Positive sick contacts with her friend/presents partner. On arrival to the ER patient is afebrile. She is saturating well on room air. She is hemodynamically stable. Lab workup shows some mild leukopenia. No major metabolic derangement or evidence of dehydration. She was given IV fluids, Zofran, Toradol, Tylenol with improvement in her symptoms. COVID and flu were negative. Chest x-ray reviewed, there is a subtle opacity in the right middle lobe. It is possible she aspirated during 1 of her vomiting episodes verses a community-acquired pneumonia. She does have a cough. Will start empiric antibiotics with Augmentin. She continues to saturate well and is in no respiratory distress. At this time she is stable for discharge home. Differential Diagnosis Differential Diagnoses: The differential diagnosis associated with the presentation includes COVID, flu, viral illness, dehydration, gastroenteritis, orthostatic hypotension, pneumonia, bronchitis, colitis Admission/Observation Consideration of admission/observation: Escalation of care including admission/observation considered Recurrent near-syncope, consider observation/admission Lab Data [facility] Lab Attestation statement: I reviewed the patient's lab results. Mild leukopenia, no major metabolic derangement 03/07/23 13:00 03/07/23 13:00 Labs: Lab Results 03/07/23 03/07/23 03/07/23 Range/Units 13:00 13:00 13:00 WBC 4.2 L (4.8-10.8) X10*3/uL RBC 4.37 (4.20-5.50) X10*6/uL Hgb 12.8 (12.0-16.0) g/dl Hct 38.2 (37.0-47.0) % MCV 87.4 (80.0-98.0) fL MCH 29.3 (27.0-33.0) pg MCHC 33.5 (31.0-35.0) g/dl RDW 12.5 (11.0-16.0) % Plt Count 196 D (160-400) X10*3/uL MPV 10.1 (9.4-12.3) fL Immature Gran % (Auto) 0.0 (0.0-0.4) % Neut % (Auto) 49.3 (45-73) % Lymph % (Auto) 38.5 (20-40) % [place] % (Auto) 11.0 (2-11) % Eos % (Auto) 1.0 (0-4) % Baso % (Auto) 0.2 (0-2) % Lymph # (Auto) 1.6 (1.2-4.9) X10*3/uL [place] # (Auto) 0.5 (0.1-1.2) X10*3/uL Eos # (Auto) 0.0 (0.0-0.4) X10*3/uL Baso # (Auto) 0.0 (0.0-0.2) X10*3/uL Abs Immat Gran (auto) 0.00 (0.00-0.03) X10*3/uL Absolute Neuts (auto) 2.1 (2.0-8.3) x10*3/uL Absolute Nucleated RBC 0.000 (0.0-0.012) X10*3/uL Nucleated RBC % (auto) 0.0 (0.0-0.2) /100WBC Sodium 137 (135-145) mmol/L Potassium 3.7 (3.3-5.1) mmol/L Chloride 102 (96-108) mmol/L Carbon Dioxide 26 (22-29) mmol/L Anion Gap 13 (12-20) BUN 13 (9-16) mg/dL Creatinine 0.71 (0.5-1.4) mg/dL Estim Creat Clear Calc 93.1 Estimated GFR > 60 Random Glucose 98 (60-115) mg/dL Calcium 8.9 D (8.4-10.2) mg/dL Magnesium 2.3 (1.6-2.6) mg/dL Total Bilirubin 0.2 (0.0-1.0) mg/dL Direct Bilirubin < 0.2 (0.0-0.5) mg/dL AST 15 (5-31) U/L ALT 15 (0-31) U/L Alkaline Phosphatase 70 (39-117) U/L Total Protein 7.0 (6.5-8.0) g/dL Albumin 3.8 (3.5-5.0) g/dL Urine Color Urine Appearance Urine pH (5.0-9.0) Ur Specific [place] (1.005-1.025) Urine Protein (Neg-Trace) mg/dL Urine Glucose (UA) (Negative) mg/dL Urine Ketones (Negative) mg/dL Urine Blood (Negative) Urine Nitrite (Negative) Ur Leukocyte Esterase (Negative) Urine RBC (0-2) /HPF Urine WBC (0-5) /HPF Ur Squamous Epith Cells (0-2) /HPF Urine Bacteria (None Seen) Hyaline Casts (0-2) /LPF COVID-19 (SHMUEL) Negative (Negative) COVID-19 Clin Com See Note Influenza Type A (TYREL) (Negative) Influenza Type B (TYREL) (Negative) Influenza A & B Note 03/07/23 03/07/23 Range/Units 13:00 13:12 WBC (4.8-10.8) X10*3/uL RBC (4.20-5.50) X10*6/uL Hgb (12.0-16.0) g/dl Hct (37.0-47.0) % MCV (80.0-98.0) fL MCH (27.0-33.0) pg MCHC (31.0-35.0) g/dl RDW (11.0-16.0) % Plt Count (160-400) X10*3/uL MPV (9.4-12.3) fL Immature Gran % (Auto) (0.0-0.4) % Neut % (Auto) (45-73) % Lymph % (Auto) (20-40) % [place] % (Auto) (2-11) % Eos % (Auto) (0-4) % Baso % (Auto) (0-2) % Lymph # (Auto) (1.2-4.9) X10*3/uL [place] # (Auto) (0.1-1.2) X10*3/uL Eos # (Auto) (0.0-0.4) X10*3/uL Baso # (Auto) (0.0-0.2) X10*3/uL Abs Immat Gran (auto) (0.00-0.03) X10*3/uL Absolute Neuts (auto) (2.0-8.3) x10*3/uL Absolute Nucleated RBC (0.0-0.012) X10*3/uL Nucleated RBC % (auto) (0.0-0.2) /100WBC Sodium (135-145) mmol/L Potassium (3.3-5.1) mmol/L Chloride (96-108) mmol/L Carbon Dioxide (22-29) mmol/L Anion Gap (12-20) BUN (9-16) mg/dL Creatinine (0.5-1.4) mg/dL Estim Creat Clear Calc Estimated GFR Random Glucose (60-115) mg/dL Calcium (8.4-10.2) mg/dL Magnesium (1.6-2.6) mg/dL Total Bilirubin (0.0-1.0) mg/dL Direct Bilirubin (0.0-0.5) mg/dL AST (5-31) U/L ALT (0-31) U/L Alkaline Phosphatase (39-117) U/L Total Protein (6.5-8.0) g/dL Albumin (3.5-5.0) g/dL Urine Color Yellow Urine Appearance Clear Urine pH 6.0 (5.0-9.0) Ur Specific [place] 1.020 (1.005-1.025) Urine Protein Trace (Neg-Trace) mg/dL Urine Glucose (UA) Negative (Negative) mg/dL Urine Ketones Trace (Negative) mg/dL Urine Blood Trace H (Negative) Urine Nitrite Negative (Negative) Ur Leukocyte Esterase Small (1+) H (Negative) Urine RBC 3-5 H (0-2) /HPF Urine WBC 6-10 H (0-5) /HPF Ur Squamous Epith Cells 6-10 (0-2) /HPF Urine Bacteria 2+ (None Seen) Hyaline Casts 0-2 (0-2) /LPF COVID-19 (SHMEUL) (Negative) COVID-19 Clin Com Influenza Type A (TYREL) Negative (Negative) Influenza Type B (TYREL) Negative (Negative) Influenza A & B Note See Note Independent Interpretation I performed an independent interpretation of an: EKG and Plain X-Ray Interpretation: EKG with normal sinus rhythm, ventricular rate 60 beats per minute, normal CO interval, normal QTC, no change from prior in June 2022. Chest x-ray with subtle right middle lobe opacity, agreed radiologist read Radiology Impression Discussion of test interpretation with radiology: I have reviewed the radiologist's reading. Radiologist Impression: EXAMINATION: XR CHEST CLINICAL INFORMATION: SOB and cough COMPARISON: Chest 04/15/2020 TECHNIQUE: Frontal view of the chest was obtained. FINDINGS: The lungs are well-expanded with patchy opacity in the right middle lobe question atelectasis versus developing infiltrate. Heart size and pulmonary vascularity is normal. There is mild elevation of right hemidiaphragm. No gross bony abnormality seen. XR/XR chest 1V IMPRESSION: Patchy opacity right middle lobe question atelectasis versus developing infiltrate. External Record Review External record reviewed: Prior outpatient labs and Prior outpatient radiology Tests considered The following testing was considered but not selected: CT scan of the abdomen considered however her abdomen is soft and nontender. Prescription Management I considered prescription management with: Antibiotic Critical Care Time Critical Care Time Critical Care Time: No Discharge Plan Discharge Clinical Impression: Gastroenteritis Patient Disposition: Home, Self-Care Instructions: Gastroenteritis (DC) Additional Instructions: You lab workup today was unremarkable. Your urine test was negative for infection and . Your chest x-ray showed possible early pneumonia in the right middle portion of the lung. Take the prescribed antibiotics as directed, complete the entire course and do not miss any doses You most likely have a viral GI bug also known as gastroenteritis. Treatment is supportive care, symptoms usually resolve on their own in 48-72 hours. Recommend rest and plenty of oral hydration. Stick to a bland diet like soup and toast while you are not feeling well. Take the prescribed medication as needed for nausea. Recommend over the counter Pepto Bismol or Imodium for upset stomach and diarrhea. Follow up with your doctor as needed. If you develop new or worsening symptoms call 911 or come back to the ER for further evaluation. Prescriptions: New amoxicillin-pot clavulanate 875-125 mg tablet 1 tab PO BID Qty: 14 0RF ondansetron 4 mg tablet,disintegrating 4 mg PO Q8H PRN (Reason: nausea and vomiting) Qty: 7 0RF No Action triamcinolone acetonide 0.025 % ointment 1 appl topical BID Qty: 80 0RF cyclobenzaprine 10 mg tablet 10 mg PO TID PRN (Reason: muscle spasm) Qty: 10 0RF lidocaine [Lidoderm] 5 % adhesive patch,medicated 1 patch topical DAILY Qty: 15 0RF Rx Instructions: leave on most painful area for up to 12 hrs ibuprofen 600 mg tablet 600 mg PO Q8H PRN (Reason: pain) Qty: 20 0RF hydrocodone-acetaminophen 5-325 mg tablet 1 tab PO Q6H PRN (Reason: pain) Qty: 8 0RF Rx Instructions: for 3 days Referrals: Celestine Vargas MD [Primary Care Provider] -
[2023-03-07] MEDS: 0.9 % Sodium Chloride 1,000 ML 999 ML IVCONT (13:01)
[2023-03-07 13:06] LABS: MANUAL DIFF FLAG NO
[2023-03-07 13:07] LABS: Basophils Percent Auto 0.2 % (0-2); Hematocrit 38.2 % (37.0-47.0); Hemoglobin 12.8 g/dl (12.0-16.0); Lymphocytes Absolute Auto 1.6 X10*3/uL (1.2-4.9); Lymphocytes Percent Auto 38.5 % (20-40); Mean Corpuscular HGB Conc 33.5 g/dl (31.0-35.0); Mean Corpuscular Hemoglobin 29.3 pg (27.0-33.0); Mean Corpuscular Volume 87.4 fL (80.0-98.0); Mean Platelet Volume 10.1 fL (9.4-12.3); Monocytes Absolute Auto 0.5 X10*3/uL (0.1-1.2); Neutrophils Absolute Auto 2.1 x10*3/uL (2.0-8.3); Neutrophils Percent Auto 49.3 % (45-73); Platelet Count 196 X10*3/uL (160-400); Red Blood Count 4.37 X10*6/uL (4.20-5.50); Red Cell Distribution Width 12.5 % (11.0-16.0); White Blood Count 4.2 X10*3/uL (4.8-10.8)
[2023-03-07] MEDS: ondansetron HCL 4 MG/2 ML VIAL IVPUSH (13:18)
--- NOTE | 2023-03-07 13:18 | PC.NURSE ---
medication administered per provider order.
[2023-03-07 13:22] LABS: Appearance Urine Clear; Color Urine Yellow; Glucose Urine UA Negative (Negative); Leukocyte Esterase Urine Small (1+) (Negative); Nitrite Urine Negative (Negative); UMIC TRIGGER UACC YES; Urine Blood Trace (Negative); Urine Ketones Trace mg/dL (Negative); Urine Protein Trace mg/dL (Neg-Trace)
[2023-03-07 13:27] LABS: Bacteria Urine 2+ (None Seen); Hyaline Casts Urine 0-2 /LPF (0-2); UACC Culture Trigger YES
[2023-03-07 13:30] LABS: Alanine Aminotransferase 15 U/L (0-31); Albumin Level 3.8 g/dL (3.5-5.0); Alkaline Phosphatase 70 U/L (39-117); Anion Gap 13 (12-20); Aspartate Amino Transferase 15 U/L (5-31); Bilirubin Direct < 0.2 mg/dL (0.0-0.5); Bilirubin Total 0.2 mg/dL (0.0-1.0); Blood Urea Nitrogen 13 mg/dL (9-16); Calcium 8.9 mg/dL (8.4-10.2); Carbon Dioxide 26 mmol/L (22-29); Chloride 102 mmol/L (96-108); Creatinine Clr Calc Pharmacy 93.1; Estimated Glomerular Filt Rate > 60; Glucose Random 98 mg/dL (60-115); Magnesium 2.3 mg/dL (1.6-2.6); Potassium 3.7 mmol/L (3.3-5.1); Sodium 137 mmol/L (135-145)
[2023-03-07 13:33] LABS: IDNOW Serial# 08D9AD1C
[2023-03-07 13:34] LABS: COVID-19 Test Negative (Negative)
[2023-03-07 13:38] LABS: IDNOW Serial# BCCEAD1C; Influenza A Negative (Negative); Influenza B2 Negative (Negative)
[2023-03-07] MEDS: Acetaminophen 325 MG TABLET 975 MG PO (15:17)
[2023-03-07] MEDS: Ketorolac Tromethamine 30 MG/ML VIAL IVPUSH (15:17)
--- NOTE | 2023-03-07 15:21 | PC.NURSE ---
patient medicated per order
== END 2023-03-07 15:56 | disposition home or self-care (01) ==
PROVIDERS: Physician Assistant; Emergency Provider Emergency Medicine Emergency Medical Services; PCP Internal Medicine
DX: K52.9 Noninfective gastroenteritis and colitis, unspecified (principal); R51.9 Headache, unspecified; R06.02 Shortness of breath; R05.9 Cough, unspecified; R94.31 Abnormal electrocardiogram [ECG] [EKG]; Z20.822 Contact with and (suspected) exposure to COVID-19; Z20.828 Contact with and (suspected) exposure to other viral communicable diseases; Z79.899 Other long term (current) drug therapy
CPT/HCPCS: 71045; 80048; 80076; 81001; 83735; 85025; 87086; 87502; 87635; 93005; 96374; 96375; 99284; 99285; J1885; J2405

== ENCOUNTER → 2023-03-07 12:51 | Outpatient (BNV) | payer OTHER, SELFPAY | PROVIDERS: Emergency Provider Emergency Medicine Emergency Medical Services; PCP Internal Medicine; Visit Provider Internal Medicine Cardiovascular Disease | DX: R06.02 Shortness of breath (principal); R94.31 Abnormal electrocardiogram [ECG] [EKG] | CPT/HCPCS: 93010 ==

== ENCOUNTER 2024-02-16 08:49 | Emergency (ER) | payer OTHER, SELFPAY ==
--- NOTE | ~2024-02-16 | XR_ITS ---
EXAMINATION: XR CHEST CLINICAL INFORMATION: Shortness of breath COMPARISON: 03/07/2023 TECHNIQUE: 2 views of the chest were obtained. FINDINGS: Lungs are clear. No pleural effusion or pneumothorax. Cardiomediastinal silhouette has normal size and contour. Pulmonary vascular pattern is normal. The right hemidiaphragm is chronically elevated. No acute osseous abnormality. L2 limbus vertebra. Anterior fusion hardware of the cervical spine is partially included in [id number]. XR/XR chest 2V IMPRESSION: No acute cardiopulmonary disease.
[2024-02-16 08:55] VITALS: BP 107/57; PULSE 71; RESP 19; TEMP 36.6; O2SAT 97; BMI 28.3
[2024-02-16 09:23] LABS: IDNOW Serial# 6674DD1D; Strep A Nucleic Acid Negative (Negative)
--- NOTE | 2024-02-16 09:29 | ED.URI ---
HPI - URI/Sore Throat General Chief Complaint: Upper Respiratory Symptoms Stated Complaint: Sore throat/SOB Time Seen by Provider: 02/16/24 09:09 Source: patient Mode of arrival: ambulatory Limitations: no limitations History of Present Illness ED Provider: MALIK BOO PA-C HPI Narrative: 43 year old female with pmhx significant for asthma presents to the ED today for evaluation of fatigue, sore throat, cough productive of yellow sputum, shortness of breath, and wheezing x24 hours. Endorses associated odynophagia without dysphagia. Tolerating p.o. intake. Admits she's had to use her rescue inhaler more frequently. Denies recent travel or long car rides. No known sick contacts. Denies fever/chills, chest pain, hemoptysis, nausea/vomiting, lower extremity pain/swelling, rashes. Related Data Previous Rx's ?Medication ?Instructions ?Recorded triamcinolone acetonide 0.025 % 1 appl topical BID #80 grams 08/06/20 topical ointment cyclobenzaprine 10 mg tablet 10 mg PO TID PRN muscle spasm #10 10/30/20 tabs hydrocodone 5 mg-acetaminophen 325 1 tab PO Q6H PRN pain #8 tabs 10/30/20 mg tablet ibuprofen 600 mg tablet 600 mg PO Q8H PRN pain #20 tabs 10/30/20 lidocaine 5 % topical patch 1 patch topical DAILY #15 ea 10/30/20 (Lidoderm) amoxicillin 875 mg-potassium 1 tab PO BID #14 tabs 03/07/23 clavulanate 125 mg tablet ondansetron 4 mg disintegrating 4 mg PO Q8H PRN nausea and 03/07/23 tablet vomiting #7 tabs azithromycin 250 mg tablet See Rx Instructions PO .COMPLEX #6 02/16/24 tabs benzonatate 100 mg capsule 100 mg PO BID PRN cough #14 caps 02/16/24 prednisone 20 mg tablet 40 mg (2 x 20 mg) PO DAILY 4 days 02/16/24 #8 tabs Allergies Allergy/AdvReac Type Severity Reaction Status Date / Time Sulfa (Sulfonamide Allergy Mild ITCHING Verified 02/16/24 08:56 Antibiotics) [SULFA(SULFONAMIDE ANTIBIOTICS)] naproxen [NAPROXEN] AdvReac Unknown NAUSEA Verified 02/16/24 08:56 Review of Systems Review of Systems: Constitutional: No fever, chills, night sweats, weight changes, +fatigue ENT/Mouth: No ear pain, hearing loss, nasal congestion, sinus pain, rhinorrhea, +sore throat, +odynophagia, No dysphagia Eyes: No eye pain, swelling, redness, vision changes, discharge Cardio: No chest pain, palpitations, SCHULTZ, orthopnea, peripheral edema Pulm: No dyspnea, hemoptysis, +cough, +sputum production, +shortness of breath, +wheezing GI: No nausea, vomiting, hematemesis, abdominal pain, diarrhea, constipation, hematochezia, melena : No irregular bleeding, dysuria, frequency, urgency, hesitancy, hematuria, flank pain MSK: No back pain, neck pain, joint pain, myalgias Skin: No lesions, rashes Neuro: No weakness, numbness, paresthesias, LOC, dizziness, headache All other systems reviewed and are negative. [facility] Past Medical History Attestation statement: The following information was validated with the patient. Source: old records reviewed and nursing notes reviewed Medical History Anxiety Depression Asthma Social History Social History Alcohol intake: current Alcohol intake frequency: holidays/special occasions only Advance Directives: No Advance Directives Information Provided: Yes Physical Exam Vital Signs: Vital Signs: Last Vital Signs Temp 98 F 02/16/24 08:55 Pulse 62 02/16/24 09:52 Resp 16 02/16/24 09:52 BP 107/57 L 02/16/24 08:55 Pulse Ox 97 02/16/24 08:55 BMI result Body Mass Index 28.3 Vital signs stable, afebrile. Not hypoxic. Not tachycardic. Const: General: cooperative, healthy appearing, comfortable and no acute distress Orientation/consciousness: patient oriented x3 Limitations: no limitations HEENT: Other: Posterior oropharynx slightly erythematous, no edema. No tonsillar exudates or peritonsillar masses, uvula midline. Controlling secretions and speaking in complete sentences. Head: Yes normal to inspection, Yes normocephalic and Yes atraumatic Ears: hearing grossly normal bilaterally, external ears normal, TM's normal bilaterally, EAC's normal, mastoids normal and no periauricular adenopathy General nose exam: Normal external nose present and No nasal discharge present Face and sinus: Yes normal facial exam and Yes sinuses nontender Eyes: General: appearance normal, both eyes and all related structures Pupils: Equal, round and reactive pupils present Neck: Neck: Yes normal visual inspection, Yes full ROM and Yes no lymphadenopathy Resp: Other: + no respiratory distress noted. No tripoding. No increased effort of breathing. Actively coughing. Lungs with equal breath sounds bilaterally, expiratory wheezes noted to bases. Effort & Inspection: able to speak in complete sentences Cardio: Other: no JVD or peripheral edema Rate: regular rate Rhythm: regular rhythm GI: Inspection: Yes normal to inspection Palpation (GI): Soft to palpation and nontender Skin: General skin exam: no rashes or lesions noted Neuro: General: patient oriented x3, gait normal and moves all extremities Cranial nerves: Yes Equal, round and reactive pupils present Extrem: General: Yes normal to inspection and Yes no calf tenderness Course Course Course Narrative: 1115-- patient has tested negative for COVID, flu, RSV, strep throat. Respiratory panel pending. Chest x-ray unremarkable. No signs of pneumonia or effusion. > on re-evaluation, patient reports symptom improvement following albuterol and Solu-Medrol administration. Lungs are now CTA bilaterally. Normal effort of breathing. > will discharge patient home with prednisone, azithromycin and Tessalon Perles. She is agreeable with this. Informed patient that we will call her with any positive results from her respiratory panel. Patient has remained stable throughout ED visit today. Discussed worrisome signs and symptoms and when to return to the ED. All questions answered at this time. Patient is agreeable with disposition and stable for discharge. Medications Administered Discontinued Medications Generic Name Dose Route Start Last Admin Trade Name Freq PRN Reason Stop Dose Admin Albuterol/Ipratropium 3 ml 02/16/24 09:47 02/16/24 09:52 Albuterol/Iprat 2.5/0.5mg 3 Ml Ampul.Neb INHALE 02/16/24 09:48 3 ml ONCE ONE Administration Methylprednisolone Sodium Succinate 60 mg 02/16/24 09:29 02/16/24 10:19 Methylprednisolone Sod Succ 125 Mg/2 Ml Vial IM 02/16/24 09:30 60 mg ONCE ONE Administration Medical Decision Making Medical Decision Making [facility] Narrative: 43 year old female with pmhx significant for asthma presents to the ED today for evaluation of fatigue, sore throat, cough productive of yellow sputum, shortness of breath, and wheezing x24 hours. VSS. Afebrile. Not tachycardic. Not hypoxic. Posterior oropharynx erythematous. Bilateral EACs/TMs WNL. no respiratory distress noted. No tripoding. No increased effort of breathing. Actively coughing. Lungs with equal breath sounds bilaterally, expiratory wheezes noted to bases. No JVD or peripheral edema. No calf tenderness bilaterally. Differential diagnosis includes viral syndrome, strep throat, pneumonia, bronchitis, asthma exacerbation. Unlikely pulmonary embolism, CHF, [employer], retropharyngeal abscess, mono, epiglottitis. Plan for viral/strep swabs, chest x-ray, ED bronch protocol, Solu-Medrol, re-evaluation. Differential Diagnosis Differential Diagnoses: The differential diagnosis associated with the presentation includes as above. Admission/Observation Not indicated Lab Data [facility] Lab Attestation statement: I reviewed the patient's lab results. as above Labs: Lab Results 02/16/24 Range/Units 09:07 Influenza Type A (PCR) NEGATIVE (Negative) Influenza Type B (PCR) NEGATIVE (Negative) RSV RNA Qual (PCR) NEGATIVE (Negative) SARS-CoV-2 RNA (RT-PCR) NEGATIVE (Negative) S. pyogenes GrpA TYREL Negative (Negative) Independent Interpretation I performed an independent interpretation of an: Plain X-Ray Interpretation: Chest x-ray without infiltrate or consolidation, agree with radiologist's interpretation. Radiology Impression Discussion of test interpretation with radiology: I have reviewed the radiologist's reading. Radiologist Impression: EXAMINATION: XR CHEST CLINICAL INFORMATION: Shortness of breath COMPARISON: 03/07/2023 TECHNIQUE: 2 views of the chest were obtained. FINDINGS: Lungs are clear. No pleural effusion or pneumothorax. Cardiomediastinal silhouette has normal size and contour. Pulmonary vascular pattern is normal. The right hemidiaphragm is chronically elevated. No acute osseous abnormality. L2 limbus vertebra. Anterior fusion hardware of the cervical spine is partially included in [id number]. XR/XR chest 2V IMPRESSION: No acute cardiopulmonary disease. External Record Review External record reviewed: Inpatient record Prescription Management I considered prescription management with: Antibiotic (Azithromycin) and Other (Prednisone, Tessalon Perles) Chronic Conditions Patient?s care impacted by: Other (Asthma) Social Determinants Patient?s care significantly limited by Social Determinants of Health including: Other Social Determinant of Health Critical Care Time Critical Care Time Critical Care Time: No Discharge Plan Discharge Clinical Impression: Asthma exacerbation, Upper respiratory infection Patient Disposition: Home, Self-Care Instructions: Upper Respiratory Infection (ED) Additional Instructions: You tested negative for covid, flu, rsv, and strep throat. Your swabs have been sent to the lab to test for other respiratory infections. You will be called in a few days with any positive results. Your CXR does not show pneumonia. Azithromycin is an antibiotic that has been sent to your pharmacy for you to take over the next 5 days. take this to completion and do not skip any doses. Prednisone is a steroid that has been sent to your pharmacy for you to take over the next 4 days. You already recieved a dose of steroids in the ED today so please take your next dose tomorrow. Tessalon Perles have been sent to your pharmacy for you to take up to twice daily as needed for cough. If you find yourself using your rescue inhaler more often without improvement, please come to the ED for further evaluation. Please follow-up with your primary care provider. Return with new or worsening symptoms. In the case of an emergency call 911. Prescriptions: New azithromycin 250 mg tablet See Rx Instructions .ROUTE .COMPLEX Qty: 6 0RF Rx Instructions: For 250 mg dose pack: take 500 mg today (day 1), then 250 mg for 4 days (days 2-5) prednisone 20 mg tablet 40 mg PO DAILY 4 Days Qty: 8 0RF benzonatate 100 mg capsule 100 mg PO BID PRN (Reason: cough) Qty: 14 0RF No Action triamcinolone acetonide 0.025 % ointment 1 appl topical BID Qty: 80 0RF cyclobenzaprine 10 mg tablet 10 mg PO TID PRN (Reason: muscle spasm) Qty: 10 0RF lidocaine [Lidoderm] 5 % adhesive patch,medicated 1 patch topical DAILY Qty: 15 0RF Rx Instructions: leave on most painful area for up to 12 hrs ibuprofen 600 mg tablet 600 mg PO Q8H PRN (Reason: pain) Qty: 20 0RF hydrocodone-acetaminophen 5-325 mg tablet 1 tab PO Q6H PRN (Reason: pain) Qty: 8 0RF Rx Instructions: for 3 days amoxicillin-pot clavulanate 875-125 mg tablet 1 tab PO BID Qty: 14 0RF ondansetron 4 mg tablet,disintegrating 4 mg PO Q8H PRN (Reason: nausea and vomiting) Qty: 7 0RF Referrals: Celestine Vargas MD [Primary Care Provider] - Stand Alone Forms: Work/School Release Print Language: [place]
[2024-02-16 09:52] VITALS: PULSE 62; RESP 16; O2SAT 99
[2024-02-16] MEDS: Albuterol/Iprat 2.5/0.5MG 3 ML AMPUL.NEB INHALE (09:52)
[2024-02-16 09:53] LABS: Influenza A PCR NEGATIVE (Negative); Influenza B PCR NEGATIVE (Negative); Resp Syncy Virus RNA Qual PCR NEGATIVE (Negative); SARS COV2 PCR INHOUSE NEGATIVE (Negative)
[2024-02-16] MEDS: methylPREDNISolone Sod Succ 125 MG/2 ML VIAL 60 MG IM (10:19)
[2024-02-16 11:19] VITALS: BP 104/60; PULSE 70; RESP 14; TEMP 36.7; O2SAT 99
[2024-02-16 12:13] LABS: Adenovirus PCR Not Detected (Not Detect.); Bordetella parapertussis PCR Not Detected (Not Detect.); Bordetella pertussis PCR Not Detected (Not Detect.); Chlamydia pneumoniae PCR Not Detected (Not Detect.); Coronavirus 229E PCR Not Detected (Not Detect.); Coronavirus HKU1 PCR Not Detected (Not Detect.); Coronavirus NL63 PCR Not Detected (Not Detect.); Coronavirus OC43 PCR Not Detected (Not Detect.); Human metapneumovirus PCR Not Detected (Not Detect.); Influenza A PCR Not Detected (Not Detect.); Influenza B PCR Not Detected (Not Detect.); Mycoplasma pneumoniae PCR Not Detected (Not Detect.); Parainfluenza 1 PCR Not Detected (Not Detect.); Parainfluenza 2 PCR Not Detected (Not Detect.); Parainfluenza 3 PCR Not Detected (Not Detect.); Parainfluenza 4 PCR Not Detected (Not Detect.); RSV PCR Not Detected (Not Detect.); Rhino/Enterovirus PCR Not Detected (Not Detect.)
[2024-02-16 12:36] LABS: SARS-CoV-2 PCR Not Detected (Not Detect.)
== END 2024-02-16 11:21 | disposition home or self-care (01) ==
PROVIDERS: Physician Assistant Medical; Emergency Provider Emergency Medicine Emergency Medical Services; PCP Internal Medicine
DX: J45.901 Unspecified asthma with (acute) exacerbation (principal); J06.9 Acute upper respiratory infection, unspecified; R06.02 Shortness of breath; Z03.818 Encounter for observation for suspected exposure to other biological agents ruled out; R05.9 Cough, unspecified; Z79.899 Other long term (current) drug therapy
CPT/HCPCS: 0241U; 71046; 87633; 87651; 94640; 96372; 99283; 99284; J2919

== ENCOUNTER 2024-11-13 10:05 | Emergency (ER) | payer OTHER, SELFPAY ==
--- NOTE | ~2024-11-13 | XR_ITS ---
CLINICAL HISTORY: pain Five views of the right wrist. COMPARISON: None FINDINGS: Distal radius and ulna appear intact. Carpal and metacarpals appear intact and normal in alignment. No radiopaque foreign body. IMPRESSION: 1. No radiographic evidence of acute injury to the right wrist. This document has been electronically signed by: Jitendra Chavez MD on 11/13/2024 14:28:24
--- NOTE | ~2024-11-13 | XR_ITS ---
CLINICAL HISTORY: pain Three views of the right hand. COMPARISON: None FINDINGS: Distal radius and ulna appear intact. Carpals, metacarpals and phalanges appear intact and normal in alignment. No radiopaque foreign body. IMPRESSION: 1. No radiographic evidence of acute injury to the right hand. This document has been electronically signed by: Jitendra Chavez MD on 11/13/2024 14:31:50
--- NOTE | ~2024-11-13 | XR_ITS ---
CLINICAL HISTORY: pain Two views of the right forearm. COMPARISON: None FINDINGS: Radius and ulna appear intact. Visualized portions of the right elbow and wrist are unremarkable. No radiopaque foreign body. IMPRESSION: 1. No radiographic evidence of acute injury to the right forearm. This document has been electronically signed by: Jitendra Chavez MD on 11/13/2024 14:27:46
[2024-11-13 10:19] VITALS: BP 146/69; PULSE 80; RESP 16; TEMP 36.9; O2SAT 98; BMI 27.5
--- NOTE | 2024-11-13 10:36 | ED_ITS ---
HPI - Psych General Chief Complaint: Psychiatric Symptoms Stated Complaint: depression Time Seen by Provider: 11/13/24 10:34 Source: patient and RN notes reviewed Mode of arrival: ambulatory Limitations: no limitations History of Present Illness ED Provider: Doretha Benitez PA-C HPI Narrative: This is a 44-year-old female, with a past medical history of asthma, who presents emergency department with concerns for increased depression. Stop taking her medication approximately 5 days ago, she reports she did this because she forgets. She states that she has had worsening depression since. She does have a psychiatrist and therapist at this time. Patient reports that she has not had any suicidal or homicidal ideation. No auditory or visual hallucinations. She was here with partner. States that she has been arguing with her partner which has been the triggering factor for her. She does report that she drank alcohol, unsure what exactly happened however states that she injured her right hand in the process. She states that she has had bruising, she denies any current pain of the hand. No head strike. No current headache, dizziness, chest pain, shortness of breath, abdominal pain, nausea, vomiting or diarrhea. She denies history of alcohol use disorder, typically drinks occasionally, does not drink every day. No history of alcohol withdrawal. No history of drug use. Does not use marijuana. She was a former smoker, discontinued in 2019. Denies ever being psychiatrically evaluated in the hospital setting in the past. No other complaints or concerns at this time. MD complaint: feels depressed Duration: constant History of same: No Relieving factors: medication and therapy Exacerbating factors: none Context: recent alcohol abuse Associated psychiatric symptoms: depression Associated symptoms: denies other symptoms Treatments prior to arrival: none Related Data Home Medications ?Medication ?Instructions ?Recorded ?Confirmed lorazepam 0.5 mg tablet 0.5 mg PO DAILY PRN anxiety attack 11/13/24 11/13/24 trazodone 50 mg tablet 50 - 100 mg PO BEDTIME PRN insomnia 11/13/24 11/13/24 vilazodone 10 mg tablet (Viibryd) 10 mg PO DAILY 11/13/24 11/13/24 Allergies Allergy/AdvReac Type Severity Reaction Status Date / Time Sulfa (Sulfonamide Allergy Mild ITCHING Verified 11/13/24 10:22 Antibiotics) [SULFA(SULFONAMIDE ANTIBIOTICS)] naproxen [NAPROXEN] AdvReac Unknown NAUSEA Verified 11/13/24 10:22 Review of Systems 2 Review of Systems: Yes all other systems are reviewed and are negative Constitutional: Constitutional: Reports as per [facility] Past Medical History Medical History Anxiety Depression Asthma Social History Social History Alcohol intake: current Alcohol intake frequency: 3 or more drinks per day Alcohol type: beer and hard liquor Smoked in Last 30 Days: No Use of substances other than those prescribed or required for medical reasons: No Advance Directives: No Advance Directives Information Provided: No Patient : No Physical Exam 2 Vital Signs: Vital Signs: Last Vital Signs Temp 98.5 F 11/13/24 13:01 Pulse 80 11/13/24 13:01 Resp 16 11/13/24 13:01 BP 146/69 H 11/13/24 13:01 Pulse Ox 98 11/13/24 13:01 O2 Del Method Room Air 11/13/24 13:01 BMI result Body Mass Index 27.5 Const: Other: Tearful, anxious appearing General: cooperative, comfortable and no acute distress O rientation/consciousness: patient oriented x3 Limitations: no limitations HEENT: Head: Yes normal to inspection, Yes normocephalic and Yes atraumatic Ears: hearing grossly normal bilaterally General nose exam: Normal external nose present Face and sinus: Yes normal facial exam Mouth: Normal oral and palatal mucosa present, oropharynx normal and moist mucous membranes Throat: Yes posterior oropharynx normal Eyes: General: appearance normal, both eyes and all related structures E yelids: Yes eyelids normal Conjunctivae: conjunctivae normal Sclerae: s clerae normal Pupils: Equal, round and reactive pupils present EOM: EOMs intact bilaterally Neck: Neck: Yes normal visual inspection, Yes full ROM and Yes no lymphadenopathy Lymphatic: no lymphadenopathy noted Chest: Chest palpation & inspection: normal inspection of the chest Resp: Effort & Inspection: normal respiratory effort and able to speak in complete sentences Auscultation: clear to auscultation bilaterally, no crackles, no rales, no rhonchi and no wheezes Cardio: Rate: regular rate Rhythm: regular rhythm Heart sounds: S1 normal heart sound present and S2 normal heart sound present GI: Inspection: Yes normal to inspection Skin: General skin exam: no rashes or lesions noted Trauma: no lacerations or abrasions Wounds: no wounds Neuro: General: patient oriented x3 and moves all extremities Cranial nerves: Yes Equal, round and reactive pupils present Extrem: Other: Right hand, overlying the 4th and 5th metacarpal bones. Strong radial pulse, aspect, she does multiple scattered seen she has full range of motion of the wrist and digits without difficulty. No open wounds or lacerations. No surrounding erythema or drainage. General: Yes normal to inspection Left upper extremity: normal to inspection Right lower extremity: normal to inspection Left lower extremity: normal to inspection Psych: Appearance: grossly normal Mental Status: mental status grossly normal Speech and movement: Normal speech and movement present Affect: Sad affect present Attitude: Guarded attititude/behavior present and Avoids eye contact (attititude/behavior) Thought process: Normal thought process present Thought content: Depressive thoughts present Insight: Limited insight present (Psych) Judgement: Limited judgement present (Psych) Course Reevaluation(s) Reevaluation #1: Labs within normal limits, she has no leukocytosis, stable H&H, chemistry with no significant electrolyte derangement. Slight hyperglycemic at 119 this is nonfasting. Urine with small leuk esterases, wbc's, and greater than 20 squamous epithelial cells. This was a dirty catch urine, appears to be contaminated. She has no urinary symptoms therefore not treating as a urinary tract infection. Negative U tox, negative ethyl alcohol. She met with the care team, there are no current risks with patient. Patient overall needs to be compliant with her medications as her noncompliance contributing to worsening depression. Also urged the importance of discontinuing alcohol use as this can worsen her depression. She already has a psychiatrist and psychologist. Patient understands and agrees with plan. She was given strict return precautions. She was feeling safe at home. Encouraged to call her psychiatrist and therapist today in regards to her visit today. She understands and agrees with plan. X-rays were obtained however still pending at this time. I reviewed these personally, no acute findings. Given that she was nontender, with full range of motion of the arm, acute fracture is less likely. She understands if there are any acute findings, she would have to report back to the emergency room. She was eager for discharge and does not want to stay for the official report. Patient stable for discharge. Time: 12:58 Reevaluation #2: X-rays normal. Time: 18:52 Medications Administered Discontinued Medications Generic Name Dose Route Start Last Admin Trade Name Phani PRN Reason Stop Dose Admin Lorazepam 0.5 mg 11/13/24 11:10 11/13/24 11:19 Lorazepam 0.5 Mg Tablet PO 0.5 mg Q6H PRN Administration Anxiety Medical Decision Making Medical Decision Making [facility] Narrative: This is a 44-year-old female, with a history of anxiety and depression, who presents emergency department with concerns for increased depression for the last 5 days. On arrival, patient mildly hypertensive at 146/69, all other vital signs within normal limits. Patient anxious and tearful appearing however she was nontoxic appearing. Patient does report she discontinue taking her medication several days ago as she ?forgets?. She was here with her partner, she states that her depression has worsened due to arguments that they have gotten into. She denies any suicidal homicidal ideation. No auditory or visual hallucinations. She has no physical complaints. Of note, she does have bruising noted to her right hand and wrist, she states that this was from several days ago after drinking alcohol. Denies hitting her head or LOC. She was full ROM of the hand, wrist, and elbow however given bruising, will obtain x-rays to rule out any bony abnormalities. Patient is requesting medication to help with her anxiety. She was already on Ativan, will medicate with Ativan 0.5 which is her usual dose. We will continue to closely monitor pending workup today. Differential Diagnosis Differential Diagnoses: The differential diagnosis associated with the presentation includes Depression, anxiety, suicidal ideation, substance abuse, Admission/Observation Consideration of admission/observation: Escalation of care including admission/observation considered Consult Healthcare Provider Management of the patient was discussed with: It Integration Architect Care team Lab Data [facility] Lab Attestation statement: I reviewed the patient's lab results. See course, and MDM 11/13/24 10:47 11/13/24 10:47 Labs: Lab Results 11/13/24 11/13/24 11/13/24 Range/Units 10:47 11:38 11:39 WBC 8.3 (4.8-10.8) X10*3/uL RBC 4.23 (4.20-5.50) X10*6/uL Hgb 13.5 (12.0-16.0) g/dl Hct 38.8 (37.0-47.0) % MCV 91.7 (80.0-98.0) fL MCH 31.9 (27.0-33.0) pg MCHC 34.8 (31.0-35.0) g/dl RDW 14.1 (11.0-16.0) % Plt Count 240 (160-400) X10*3/uL MPV 10.3 (9.4-12.3) fL Immature Gran % (Auto) 0.1 (0.0-0.4) % Neut % (Auto) 62.6 (45-73) % Lymph % (Auto) 30.4 (20-40) % Cassia % (Auto) 5.9 (2-11) % Eos % (Auto) 0.6 (0-4) % Baso % (Auto) 0.4 (0-2) % Lymph # (Auto) 2.5 (1.2-4.9) X10*3/uL Cassia # (Auto) 0.5 (0.1-1.2) X10*3/uL Eos # (Auto) 0.1 (0.0-0.4) X10*3/uL Baso # (Auto) 0.0 (0.0-0.2) X10*3/uL Abs Immat Gran (auto) 0.01 (0.00-0.03) X10*3/uL Absolute Neuts (auto) 5.2 (2.0-8.3) x10*3/uL Absolute Nucleated RBC 0.000 (0.0-0.012) X10*3/uL Nucleated RBC % (auto) 0.0 (0.0-0.2) /100WBC Sodium 140 (135-145) mmol/L Potassium 3.6 (3.3-5.1) mmol/L Chloride 105 (96-108) mmol/L Carbon Dioxide 25 (22-29) mmol/L Anion Gap 14 (12-20) BUN 15 (9-16) mg/dL Creatinine 0.71 (0.5-1.4) mg/dL Estim Creat Clear Calc 88.8 Estimated GFR > 60 Random Glucose 119 H (60-115) mg/dL Calcium 8.7 (8.4-10.2) mg/dL Total Bilirubin 0.7 (0.0-1.0) mg/dL AST 23 (5-31) U/L ALT 14 (0-31) U/L Alkaline Phosphatase 76 (39-117) U/L Total Protein 6.7 (6.5-8.0) g/dL Albumin 4.1 (3.5-5.0) g/dL Urine Color Yellow Urine Appearance Cloudy Urine pH 5.5 (5.0-9.0) Ur Specific Cades 1.025 (1.005-1.025) Urine Protein Trace (Neg-Trace) mg/dL Urine Glucose (UA) Negative (Negative) mg/dL Urine Ketones Trace (Negative) mg/dL Urine Blood Negative (Negative) Urine Nitrite Negative (Negative) Ur Leukocyte Esterase Small (1+) H (Negative) Urine RBC 0-2 (0-2) /HPF Urine WBC 6-10 H (0-5) /HPF Ur Squamous Epith Cells >20 (0-2) /HPF Urine Bacteria 4+ (None Seen) Hyaline Casts 0-2 (0-2) /LPF Urine Test NEGATIVE (NEGATIVE) Salicylates < 5.0 L (15-30) mg/dL Urine Opiates Screen Not Detected (Not Detect) Ur Buprenorphine Scrn Not Detected (Not Detect) ng/mL Ur Oxycodone Screen Not Detected (Not Detect) ng/mL Urine Methadone Screen Not Detected (Not Detect) ng/mL Urine Fentanyl Screen Not Detected (Not Detect) Acetaminophen < 3 (<30) mcg/mL Ur Barbiturates Screen Not Detected (Not Detect) Ur Phencyclidine Scrn Not Detected (Not Detect) Ur Amphetamines Screen Not Detected (Not Detect) U Benzodiazepines Scrn Not Detected (Not Detect) Urine Cocaine Screen Not Detected (Not Detect) U Marijuana (THC) Screen Not Detected (Not Detect) Ethyl Alcohol < 10 mg/dL Radiology Impression Discussion of test interpretation with radiology: I have reviewed the radiologist's reading. Radiologist Impression: CLINICAL HISTORY: pain Two views of the right forearm. COMPARISON: None FINDINGS: Radius and ulna appear intact. Visualized portions of the right elbow and wrist are unremarkable. No radiopaque foreign body. IMPRESSION: 1. No radiographic evidence of acute injury to the right forearm. This document has been electronically signed by: Jitendra Chavez MD on 11/13/2024 14:27:46 Dictated By: Jitendra Chavez MD CLINICAL HISTORY: pain Five views of the right wrist. COMPARISON: None FINDINGS: Distal radius and ulna appear intact. Carpal and metacarpals appear intact and normal in alignment. No radiopaque foreign body. IMPRESSION: 1. No radiographic evidence of acute injury to the right wrist. This document has been electronically signed by: Jitendra Chavez MD on 11/13/2024 14:28:24 Dictated By: Jitendra Chavez MD CLINICAL HISTORY: pain Three views of the right hand. COMPARISON: None FINDINGS: Distal radius and ulna appear intact. Carpals, metacarpals and phalanges appear intact and normal in alignment. No radiopaque foreign body. IMPRESSION: 1. No radiographic evidence of acute injury to the right hand. This document has been electronically signed by: Jitendra Chavez MD on 11/13/2024 14:31:50 Dictated By: Jitendra Chavez MD Discharge Plan Discharge Clinical Impression: Depression, Contusion of hand, right Patient Disposition: Home, Self-Care Instructions: Depression (ED) Additional Instructions: You were seen in the emergency department today and you were seen by the care team. You need to continue your home medications as if you are not consistently taking this this can cause worsening anxiety and depression. Mixing these medications with alcohol can lessen the effects of these medications as well as worsen anxiety and depression. Because you are having increased depression, I am encouraging you to avoid alcohol as this can make depression anxiety much worse. Your blood work was reassuring today. You left the emergency room prior to the x-rays being officially read by the radiologist. I will call you if there any abnormal results. You understand that if there are, you may have to report back to the emergency room. Please rest, ice, and take ibuprofen as needed for pain. If any new or worsening symptoms occur including but not limited to worsening depression, anxiety, suicidal or homicidal ideation, please seek emergent care. I hope you feel better soon! Prescriptions: No Action trazodone 50 mg tablet 50 - 100 mg PO BEDTIME PRN (Reason: insomnia) vilazodone [Viibryd] 10 mg tablet 10 mg PO DAILY lorazepam 0.5 mg tablet 0.5 mg PO DAILY PRN (Reason: anxiety attack) Interventions: [place]-Suicide Risk Severity Scale Last Done: 11/13/24 10:43 ED Discharge Assessment Last Done: 11/13/24 13:01 Discharge Date/Time: 11/13/24 13:06 Print Language: Faroese
[2024-11-13 10:51] LABS: MANUAL DIFF FLAG NO
[2024-11-13 10:53] LABS: Basophils Percent Auto 0.4 % (0-2); Eosinophils Absolute Auto 0.1 X10*3/uL (0.0-0.4); Eosinophils Percent Auto 0.6 % (0-4); Hematocrit 38.8 % (37.0-47.0); Hemoglobin 13.5 g/dl (12.0-16.0); Imm Gran Abs Auto 0.01 X10*3/uL (0.00-0.03); Imm Gran Pct Auto 0.1 % (0.0-0.4); Lymphocytes Absolute Auto 2.5 X10*3/uL (1.2-4.9); Lymphocytes Percent Auto 30.4 % (20-40); Mean Corpuscular HGB Conc 34.8 g/dl (31.0-35.0); Mean Corpuscular Hemoglobin 31.9 pg (27.0-33.0); Mean Corpuscular Volume 91.7 fL (80.0-98.0); Mean Platelet Volume 10.3 fL (9.4-12.3); Monocytes Absolute Auto 0.5 X10*3/uL (0.1-1.2); Monocytes Percent Auto 5.9 % (2-11); Neutrophils Absolute Auto 5.2 x10*3/uL (2.0-8.3); Neutrophils Percent Auto 62.6 % (45-73); Platelet Count 240 X10*3/uL (160-400); Red Blood Count 4.23 X10*6/uL (4.20-5.50); Red Cell Distribution Width 14.1 % (11.0-16.0); White Blood Count 8.3 X10*3/uL (4.8-10.8)
--- OUTSIDE RECORDS SUMMARY | 2024-11-13 11:04 | XMS_ITS | Clinical Summary ---
Author Organization [facility] [address] [place] [address] Address [address] [place] [address] Phone Care Team Providers Care Manager Of Enterprise Name Role Phone Celestine Vargas MD Primary Care Provider Allergies Active Allergy Reactions Criticality Noted Date Comments Other 12/19/2010 Seasonal Allergies Sulfa (Sulfonamide Antibiotics) 03/05/2020 Sulfamethoxazole-Trimetho prim High 04/16/2011 Bactrim [sulfamethoxazole W-trimethoprim] Other Reaction(s): Hives/Urticaria Medications albuterol 2.5 mg /3 mL (0.083 %) nebulizer solution Take 1 Vial by nebulization every 6 hours as needed for Wheezing, Shortness of Breath or Cough. 09/14/19 24 Active azelastine (ASTELIN) 137 mcg (0.1 %) nasal spray 2 Sprays by Each Nare route 2 times daily. Use in each nostril as directed 09/14/19 24 Active cetirizine (ZyrTEC) 10 mg capsule Take 10 mg by mouth daily. 09/14/19 24 Active diclofenac (VOLTAREN) 1 % topical gel Apply 1 Applicator topically 2 times daily as needed (left elbow pain). 07/10/20 22 Active levocetirizine (XYZAL) 5 mg tablet Take 1 Tablet by mouth daily as needed for Allergies. 10/06/19 24 Active loratadine (CLARITIN) 10 mg tablet Take 1 Tablet by mouth daily. 06/14/20 23 Active LORazepam (ATIVAN) 0.5 mg tablet TAKE 1 TABLET BY MOUTH ONCE A DAY NEEDED FOR SEVERE ANXIETY. UP TO 12 TIMES PER MONTH. 11/14/19 23 Active reservoir inhalation (INSPIREASE) device Use with inhaler 07/24/20 15 Active budesonide-form oteroL (Symbicort) 160-4.5 mcg/actuation inhaler Inhale 2 Puffs into the lungs every 12 hours. This medication has inhaler steroid: Rinse mouth with water and expectorate after each dose to prevent oral/esophageal candidiasis or fungal infection. 09/14/19 24 Active traZODone (DESYREL) 50 mg tablet TAKE 1-2 TABLETS BY MOUTH AT BEDTIME NEEDED FOR INSOMNIA 05/26/20 22 Active vilazodone (Viibryd) 20 mg tablet TAKE 1 TABLET BY MOUTH EVERY MORNING 02/23/20 20 Active vilazodone (VIIBRYD) 10 mg tablet Take by mouth daily. Taken with 20 mg tablet Active Ventolin HFA 90 mcg/actuation inhalerIndicati ons:Moderate persistent asthma with (acute) exacerbation INHALE 2 PUFFS INTO THE LUNGS 4 TIMES DAILY NEEDED FOR WHEEZING OR SHORTNESS OF BREATH. 54 each 1 09/05/19 25 Active fluticasone propionate (FLONASE) 50 mcg/actuation nasal sprayIndication s:Allergic rhinitis, unspecified INSTILL 2 SPRAYS IN EACH NOSTRIL DAILY FOR 3-4 WEEKS, THEN DECREASE TO 1 SPRAY IN EACH NOSTRIL DAILY 32 mL 2 09/05/19 25 Active omeprazole (PriLOSEC) [address] capsule TAKE 1 CAPSULE BY MOUTH DAILY. TAKE IN THE MORNING ON EMPTY STOMACH, WAIT 30 MINS AND THEN EAT TO ACTIVATE THE MEDICATION 90 capsule 10/19/19 25 Active omeprazole (PriLOSEC) [address] capsule Take 1 Capsule by mouth daily. Take in am on empty stomach, wait 30 mins and then eat to activate the medication 09/07/19 24 2024 Discontinued nitrofurantoin, macrocrystal-mo nohydrate, (MACROBID) 100 mg capsule Take 1 capsule (100 mg total) by mouth 2 (two) times a day for 7 days. 14 each 10/27/19 25 2024 Active Problems Problem Noted Date Diagnosed Date Mass of right breast 01/05/2024 Overview (08/02/2024): Last Assessment & Plan: Subtle. Will send for imaging. If normal, will just follow clinically. I suspect it is a cyst or fatty tissue. Dysphagia 09/07/2023 Gastroesophageal reflux disease 09/07/2023 Neck pain 03/26/2023 Overview (08/02/2024): Last Assessment & Plan: Ms. Walden is about 17 months status post C5-6 anterior cervical discectomy and fusion with Dr. Eduin Lu. After the surgery she had relief of her neck pain, arm pain, and leg symptoms. Unfortunately, over the last 6 months or so she has had a return of neck pain and headaches. She does home exercises that she learned in physical therapy and takes Excedrin which seems to help. She says that nothing is so bad that she would consider any kind of surgical intervention. We talked about yoga, acupuncture, physical therapy, and NSAIDs as reasonable conservative modalities. She took some information on acupuncture and said that she would call if things were not getting better. Cervical disc herniation 12/05/2021 Overview (08/02/2024): Last Assessment & Plan: Ms. Walden is now about two and a half months s/p C5-6 anterior cervical discectomy and fusion with Dr. Lu. She has had an improvement in her right arm weakness but describes a return of subjective weakness in the right leg. We talked about nerve and spinal cord healing and I reassured her. She will go for physical therapy and follow up with Dr. Lu in 2-3 months. Obstructive sleep apnea 11/06/2021 Overview (08/02/2024): [facility] Home sleep test 11/03/2021; weight 180; BMI 34. AHI 6. 1 central apneas and 34 hypopneas. Average oxygen saturation 95% with oxygen monserrat 86%. Obstructive sleep apnea-mild with mostly hypopneas and without nocturnal hypoxemia based on 2021 home sleep test. Prediabetes 09/12/2021 Irregular menses 04/09/2021 Overview (08/02/2024): Last Assessment & Plan: Today with reviewed that irregular menses and accompanying symptoms of irritability and prolonged hot flushes may be related to perimenopause but may be related to other causes such as thyroid abnormalities. TSH and prolactin ordered. Discuss that it would be prudent to avoid COCs as patient is obese and >40yo, however we did discuss that HRT may be beneficial for treatment of symptoms if they are related to perimenopause. She was counseled at length on the use of hormone replacement. Her medical history was reviewed with her. She does not have an estrogen dependent cancer, liver disease or history of VTE. I discussed the Women's Health Study, regarding the increased risk of breast cancer, heart disease, and DVT. These risks appeared to be increased after the fifth year of use, except for heart disease that may occur in the first year in women at risk. The benefits of HT I reviewed as well. I have advised her, that it is reasonable for her to be on HT until the average age of menopause with minimal increased risk over baseline, at which time we may elect to wean her slowly so that we can get her off without too many withdrawal symptoms. She is happy with this plan and will be started on HRT today. She will return in 3 months for assessment of satisfaction with medication. COVID-19 virus infection 06/29/2020 PND (post-nasal drip) 03/05/2020 Depression 11/28/2012 Obesity 01/16/2011 Asthma 11/11/2009 Hypercholesteremia 12/05/2007 Allergic rhinitis 11/28/2007 Anxiety and depression 10/19/2007 Dysplasia of cervix 12/22/2006 Encounters Date Type Department Care Team Description 10/26/2024 2:00 PM EDT Office Visit Adult Medicine [address] [phone] Celestine Vargas MD Frequency of urination (Primary Dx); Dysuria; Urinary urgency; Proteinuria, unspecified type; Gastroesophageal reflux disease, unspecified whether esophagitis present; Insomnia, unspecified type; Mild intermittent asthma without complication; Anxiety and depression 10/26/2024 Telephone Adult Medicine [address] [address] [place], [place], [place] UTI from Last 3 Months Immunizations Name Administration Dates Next Due H1N1 Inj Preservative Free 07/16/2009 HPV, Quadrivalent 05/10/2006 Influenza trivalent, 0.5mL, preservative free (Fluarix; FluLaval; Fluzone) ages 6mo and older (Afluria) 3 years and older 05/15/2013,05/11/2012,05/18/2011,05/19,04/10/2009,06/08/2008 Pfizer SARS-CoV-2 COVID-19, mRNA, LNP-S, preservative free 05/05/2021 Pneumococcal polysaccharide 23 valent (Pneumovax 23) 2yo and older 04/11/2020 Tdap Tetanus diptheria acell ular pertussis (Boostrix; Adacel) 7yo and older 10/17/2015,05/15/2013,03/12/2010 Surgical History Surgery Date Site/Laterality Comments COLPOSCOPY PROCEDURE: NJ COLPOSCOPY ENTIRE VAGINA W/CERVIX IF PRESENT; COMMENT: ? LEEP OTHER SURGICAL HISTORY 11/14/2021 PROCEDURE: NJ ARTHRD ANT INTERBODY MIN DSC CRV BELOW C2; COMMENT: C5-6 ACDF, Dr. Lu Medical History Medical History Date Comments Dysplasia of cervix, unspecified 12/22/2006 DX:Dysplasia of cervix, unspecified Allergic rhinitis 11/28/2007 DX:Allergic rh initis Hypercholesteremia 12/05/2007 DX:Hyperchole steremia Asthma 11/11/2009 DX:Asthma Change in bowel habits DX:Change in bowel habits Abdominal pain DX:Abdominal emerson n History of bronchitis DX:History of bronchitis Tubular adenoma of colon DX:Tubu lar adenoma of colon Diverticulosis DX:Diverticulosi s Rectal bleeding DX:Rectal bleedi ng Hemorrhoids DX:Hemorrhoids Esophageal reflux DX:Esophageal reflux Dysphagia DX:Dysphagia Prediabetes DX:Prediabetes Family History Medical History Relation Name Comments Cervical cancer Aunt Colon polyps Father mid 60s Diabetes Father htn Breast cancer Maternal Grandmother Hypertension Mother Heart attack Paternal Grandfather Breast cancer Paternal Grandmother diabet es Relation Name Status Comments Aunt Father Maternal Grandfather Maternal Grandmother Mother Alive Paternal Grandfather Paternal Grandmother Social History Tobacco Use Types Packs/Day Years Used Date Smoking Tobacco: Former Cigarettes Smokeless Tobacco: Never Alcohol Use Standard Drinks/Week Comments No 0 (1 standard drink = 0.6 oz pur e alcohol) Comments Unknown Sex and Gender Information Value Date Recorded Sex Assigned at Not on file Legal Sex Female 10:42 AM EST Gender Identity Not on file Sexual Orientation Not on file Obstetrics History Last Filed Vital Signs Vital Sign Reading Time Taken Comments Blood Pressure 100/62 10/26/2024 1:56 PM EDT Pulse 88 10/26/2024 1:56 PM EDT Temperature 36.6 ??C (97.8 ??F) 10/26/2024 1:56 PM ED T Respiratory Rate - - Oxygen Saturation - - Inhaled Oxygen Concentration - - Weight 68 kg (150 lb) 10/26/2024 1:56 PM EDT Height 154.9 cm (5' 1 ) 10/26/2024 1:56 PM EDT Body Mass Index 28.34 10/26/2024 1:56 PM EDT Plan of Treatment Health Maintenance Due Date Last Done Comments Hepatitis B Vaccines (1 of 3 - 19+ 3-dose series) 2000 HPV Vaccines (2 - 3-dose series) 06/07/2006 05/10/2006 Pneumococcal Vaccine: Pediatrics (0 to 5 Years) and At-Risk Patients (6 to 64 Years) (2 of 2 - PCV) 04/11/2021 04/11/2020 Depression Screening 07/04/2022 Social Influencers of Health Screening 07/04/2022 COVID-19 Vaccine ( - season) 2024 05/05/2021, 10/13/2020, 09/22/2020 Influenza Vaccine (Season Ended) 2025 05/15/2013, 05/11/2012, 05/18/2011, Additional history exists DTaP,Tdap,and Td Vaccines (4 - Td or Tdap) 10/16/2025 10/17/2015, 05/15/2013, 03/12/2010 Colorectal Cancer Screening: Colonoscopy 05/20/2026 05/20/2023 Breast Cancer Screening 05/25/2026 05/25/20 24, 05/25/2024, 05/21/2023, Additional history exists Cholesterol Screening (Lipid Panel) 04/03/2027 04/03/2022 Cervical Cancer Screening: HPV 12/24/2027 12/23/2022 HIV Screening Completed 07/10/2022 Hepatitis C Screening Completed 07/10/2022 HIB Vaccines Aged Out No longer eligi ble based on patient's age to complete this topic Hepatitis A Vaccines Aged Out No long er eligible based on patient's age to complete this topic IPV Vaccines Aged Out No longer eligi ble based on patient's age to complete this topic MMR Vaccines Aged Out No longer eligi ble based on patient's age to complete this topic Meningococcal ACWY Vaccine Aged Out N o longer eligible based on patient's age to complete this topic Meningococcal B Vaccine Aged Out No l onger eligible based on patient's age to complete this topic RSV Immunization Patients Under 20 months Aged Out No longer eligible based on patient's age to complete this topic Varicella Vaccines Aged Out No longer eligible based on patient's age to complete this topic Procedures Procedure Name Priority Date/Time Associated Diagnosis Comments LAYNE URINE CULTURE TUBE Routine 10/26/2024 3:13 PM EDT Frequency of urination Dysuria Urinary urgency URINALYSIS WITH REFLEX MICROSCOPIC AND CULTURE Routine 10/26/2024 3:13 PM EDT Frequency of urination Dysuria Urinary urgency URINALYSIS WITH REFLEX MICROSCOPIC AND CULTURE Routine 10/26/2024 3:13 PM EDT Frequency of urination Dysuria Urinary urgency CULTURE URINE Routine 10/26/2024 3:13 PM EDT Frequency of urination Dysuria Urinary urgency POC URINE NON-AUTO W/O MICRO Routine 10/26/2024 2:08 PM EDT Frequency of urination SCREENING MAMMOGRAPHY BI 2-VIEW BREAST INC CAD Routine 05/25/2024 1:50 PM EDT Encounter for screening mammogram for malignant neoplasm of breast HPV Routine 12/23/2022 HEPATITIS C SCREENING Routine 07/10/2022 HIV SCREENING Routine 07/10/2022 LIPID PANEL Routine 04/03/2022 from Last 3 Months or Most Recently Relevant to Health Maintenance Results * (ABNORMAL) Urinalysis with reflex microscopic and culture (10/26/2024 3:13 PM EDT) Specific [place] Urine 1.025 1.003 - 1.030 LAB URINALYSIS - AUTOMATED METHOD 10/26/2024 7:13 PM [facility] pH, Urine 6.0 5.0 - 8.0 pH LAB URINALYSIS - AUTOMATED METHOD 10/26/2024 7:13 PM [facility] Leukocytes, Urine Small(A) Negative LAB URINALYSIS - AUTOMATED METHOD 10/26/2024 7:13 PM [facility] Nitrite, Urine Positive(A) Negative LAB URINALYSIS - AUTOMATED METHOD 10/26/2024 7:13 PM [facility] Protein, Urine Trace <=Trace mg/dL LAB URINALYSIS - AUTOMATED METHOD 10/26/2024 7:13 PM [facility] Glucose, Urine 500(A) Negative mg/dL LAB URINALYSIS - AUTOMATED METHOD 10/26/2024 7:13 PM [facility] Ketones, Urine Trace(A) Negative mg/dL LAB URINALYSIS - AUTOMATED METHOD 10/26/2024 7:13 PM [facility] Urobilinogen , Urine 1.0 0.2 - 1.0 mg/dL LAB URINALYSIS - AUTOMATED METHOD 10/26/2024 7:13 PM [facility] Bilirubin, Urine Negative Negative LAB URINALYSIS - AUTOMATED METHOD 10/26/2024 7:13 PM [facility] Blood, Urine Negative Negative LAB URINALYSIS - AUTOMATED METHOD 10/26/2024 7:13 PM [facility] RBC, Urine 4.4(H) 0 - 4 /HPF LAB URINALYSIS - AUTOMATED METHOD 10/26/2024 7:13 PM EDT [facility] WBC, Urine 125.2(H) 0 - 4 /HPF LAB URINALYSIS - AUTOMATED METHOD 10/26/2024 7:13 PM EDT [facility] Squamous Epithelial, Urine >100(H) 0 - 60 /LPF LAB URINALYSIS - AUTOMATED METHOD 10/26/2024 7:13 PM EDT [facility] Bacteria, Urine Many(A) Negative /HPF LAB URINALYSIS - AUTOMATED METHOD 10/26/2024 7:13 PM EDT [facility] Hyaline Casts, Urine 10.0(H) 0 - 3 /LPF LAB URINALYSIS - AUTOMATED METHOD 10/26/2024 7:13 PM EDT [facility] Urine Urine specimen obtained by clean catch procedure / Unknown Non-blood Collection / Unknown 10/26/2024 3:13 PM EDT 10/26/2024 3:13 PM EDT Celestine Vargas MD LAB URINE ORDERABLES Final Result Performing Organization Address City/[facility]/ZIP Co de Phone Number [facility] [address] [place] [address], [place] [phone] * Layne urine culture tube (10/26/2024 3:13 PM EDT) Extra Tube Hold for add-ons. 10/26/2024 5:02 PM EDT [facility] Comment:Auto resulted. Urine Urine specimen obtained by clean catch procedure / Unknown Non-blood Collection / Unknown 10/26/2024 3:13 PM EDT 10/26/2024 3:13 PM EDT Celestine Vargas MD LAB URINE ORDERABLES Final Result Performing Organization Address [facility]/ZIP Co de Phone Number [facility] [address] [place] [address], [place] [phone] * (ABNORMAL) Culture urine (10/26/2024 3:13 PM EDT) Culture, Urine >100,000 CFU/mL Escherichia coli(A) JACQUELYN 10/28/2024 11:50 AM EDT [facility] Comment: This is an edited result. Previous organism was Gram negative bacilli on 10/27/2024 at 1337 EDT. Urine Urine specimen obtained by clean catch procedure / Unknown Non-blood Collection / Unknown 10/26/2024 3:13 PM EDT 10/26/2024 7:13 PM EDT Narrative [facility] - 10/28/2024 11:50 AM EDT Additional colony types present in insignificant amounts. Organism Antibiotic Method Susceptibility Escherichia coli Amoxicillin/Clavulanate JACQUELYN 4 ug/ml: Susceptible Escherichia coli Ampicillin/Sulbactam JACQUELYN >=32 ug/ml: Resistant Escherichia coli Piperacillin/Tazobactam JACQUELYN <=4 ug/ml: Susceptible Escherichia coli Cefazolin (Urine) JACQUELYN 2 ug/ml: Susceptible Escherichia coli Cefoxitin JACQUELYN <=4 ug/ml: Susceptible Escherichia coli Ceftazidime JACQUELYN <=0.5 ug/ml: Susceptible Escherichia coli Ceftriaxone JACQUELYN <=0.25 ug/ml: Susceptible Escherichia coli Cefepime JACQUELYN <=0.12 ug/ml: Susceptible Escherichia coli Meropenem JACQUELYN <=0.25 ug/ml: Susceptible Escherichia coli Amikacin JACQUELYN 2 ug/ml: Susceptible Escherichia coli Gentamicin JACQUELYN <=1 ug/ml: Susceptible Escherichia coli Ciprofloxacin JACQUELYN <=0.06 ug/ml: Susceptible Escherichia coli Levofloxacin JACQUELYN <=0.12 ug/ml: Susceptible Escherichia coli Nitrofurantoin JACQUELYN <=16 ug/ml: Susceptible Escherichia coli Trimethoprim/Sulfamethoxazole JACQUELYN <=20 ug/ml: Susceptible us Celestine Vargas MD LAB MICROBIOLOGY - GENERAL ORDERABLES Final Result [facility] [address] [place] [address], * (ABNORMAL) POC Urine Non-Auto W/O Micro (10/26/2024 2:08 PM EDT) Leukocytes UA POC Positive(A) Negative Nitrite UA POC Positive(A) Negative Urobilinogen UA POC Negative Negative Protein UA POC Positive(A) Negative PH UA POC 6.0 5.0 - 9.0 Blood UA POC Trace Negative, Trace Specific [place] UA POC 1.025 1.001 - 1.035 Ketones UA POC 1+(A) Negative Bilirubin UA POC Positive(A) Negative Glucose UA POC Positive(A) Normal, Trace Color UA POC [place] CLARITY, URINE POC Hazy Urine Urine specimen obtained by clean catch procedure / Unknown 10/26/2024 2:08 PM EDT us Celestine Vargas MD POINT OF CARE TEST ENTER/ED IT ORDERABLES Final Result * SCREENING MAMMOGRAPHY BI 2-VIEW BREAST INC CAD (05/25/2024 1:50 PM EDT) Anatomical Region Laterality Modality Radiographic Radha ging 05/06/2023 8:12 AM EDT Narrative 05/26/2024 8:15 AM EDT This is a summary report. The complete report is available in the patient's medical record. If you cannot access the medical record, please contact the sending organization for a detailed fax or copy. Full field digital screening tomosynthesis mammography, reviewed with CAD and compared to previous mammograms dating back to 2020 with most recent of 05/06/2023. The breasts are composed of fatty and fibroglandular tissue. ??No suspicious mass, architectural distortion or suspicious calcifications are identified. IMPRESSION: : No mammographic evidence of malignancy. BIRADS 1-Negative; N. Breast density: The breasts have scattered areas of fibroglandular density. 5 year breast cancer risk assessment 0.6 % Lifetime breast cancer risk assessment 8.8 % Breast cancer risk category Low (<15%) Location: [facility], [address] [place] [address], [place], [address], [phone] Procedure Note Mariela Melendez MD - 06/19/2024 This is a summary report. The complete report is available in thepatient's medical record. If you cannot access the medical record, pleasecontact the sending organization for a detailed fax or copy. Full field digital screening tomosynthesis mammography, reviewed with CADbatool compared to previous mammograms dating back to 2020 with mostrecent of 05/06/2023. The breasts are composed of fatty and fibroglandulartissue. No suspicious mass, architectural distortion or suspiciouscalcifications are identified. IMPRESSION: : No mammographic evidence of malignancy. BIRADS 1-Negative; N. Breast density: The breasts have scattered areas of fibroglandulardensity. 5 year breast cancer risk assessment 0.6 % Lifetime breast cancer risk assessment 8.8 % Breast cancer risk category Low (<15%) Location: [facility], [address] [place] [address], [address], [phone] Result [facility] Talya Mazariegos MD IMG XR PROCEDURES Final Res ult * Cervical Cancer Screening: HPV (12/23/2022) Pathologist [facility] Cervical Cancer Screening: HPV Negative, Abstracted Result [facility] HEALTH MAINTENANCE Final Result * HIV Screening (07/10/2022) [facility] HIV Screening Abstracted Result [facility] MAINTENANCE Final Result * Hepatitis C Screening (07/10/2022) [facility] Hepatitis C Screening Abstracted Result [facility] HEALTH MAINTENANCE Final Result * (ABNORMAL) Lipid panel (04/03/2022) [facility] LDL/HDL Ratio 5(A) 0 - 4 Triglycerides 239(A) 0 - 150 mg/dL Cholesterol 285(A) 0 - 200 mg/dL HDL 56 >=40 mg/dL LDL Cholesterol 182(A) 0 - 100 mg/dL Blood Venous blood specimen / Unknown Result [facility] Provider LAB BLOOD ORDERABLES Arleen l Result from Last 3 Months or Most Recently Relevant to Health Maintenance Insurance [facility] PLAN Care Teams Manager Of Enterprise Relationship Specialty Start Date End Date Celestine Vargas MD [address] [place] [id number] PCP - General Internal Medicine 05/07/22
[2024-11-13 11:07] LABS: Ethanol < 10 mg/dL
[2024-11-13 11:08] LABS: Alanine Aminotransferase 14 U/L (0-31); Albumin Level 4.1 g/dL (3.5-5.0); Alkaline Phosphatase 76 U/L (39-117); Anion Gap 14 (12-20); Aspartate Amino Transferase 23 U/L (5-31); Bilirubin Total 0.7 mg/dL (0.0-1.0); Blood Urea Nitrogen 15 mg/dL (9-16); Calcium 8.7 mg/dL (8.4-10.2); Carbon Dioxide 25 mmol/L (22-29); Chloride 105 mmol/L (96-108); Creatinine Clr Calc Pharmacy 88.8; Estimated Glomerular Filt Rate > 60; Glucose Random 119 mg/dL (60-115); Potassium 3.6 mmol/L (3.3-5.1); Sodium 140 mmol/L (135-145); Total Protein 6.7 g/dL (6.5-8.0)
[2024-11-13] MEDS: LORazepam 0.5 MG TABLET PO (11:19)
--- NOTE | 2024-11-13 11:23 | PC.NURSE ---
Pt comes to ED today from home for complaints of increased depression and anxiety. Pt reports she has not taking her Rx medications for about 5 days. She did take her PRN Ativan last night with no relief. She denies SI/HI at this time. She reports frequent ETOH use. RUE extremity presents with bruising to anterior and posterior hand as well as anterior forearm. Pt demonstrates appropriate ROM and CMS to RUE and denies pain. Blood work drawn Pt given Ativan per her request. 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 Awaiting medical clearance and CT eval.
[2024-11-13 11:47] LABS: Appearance Urine Cloudy; Color Urine Yellow; Glucose Urine UA Negative (Negative); Leukocyte Esterase Urine Small (1+) (Negative); Nitrite Urine Negative (Negative); PH 5.5 (5.0-9.0); Specific Gravity - Urine 1.025 (1.005-1.025); UMIC TRIGGER UACC YES; Urine Blood Negative (Negative); Urine Ketones Trace mg/dL (Negative); Urine Protein Trace mg/dL (Neg-Trace)
[2024-11-13 11:48] LABS: UPreg QC Valid YES; Urine Pregnancy NEGATIVE (NEGATIVE)
[2024-11-13 11:52] LABS: Bacteria Urine 4+ (None Seen); Hyaline Casts Urine 0-2 /LPF (0-2); RBC Urine 0-2 /HPF (0-2); Squamous Epithelial Cell Urine >20 /HPF (0-2); UACC Culture Trigger YES
[2024-11-13 11:55] LABS: Amphetamine Screen Urine Not Detected (Not Detect); Barbiturates, Urine Not Detected (Not Detect); Benzodiazepines Screen Urine Not Detected (Not Detect); Buprenorphine Scr Not Detected (Not Detect); Cannabinoid Screen Urine Not Detected (Not Detect); Cocaine Screen Urine Not Detected (Not Detect); Fentanyl, urine Not Detected (Not Detect); Methadone Screen, Urine Not Detected (Not Detect); Opiate Screen Urine Not Detected (Not Detect); Oxycodone Screen Urine Not Detected (Not Detect); Phencyclidine Screen Urine Not Detected (Not Detect)
[2024-11-13 12:04] LABS: Acetaminophen LAB < 3 mcg/mL (<30); Salicylate < 5.0 mg/dL (15-30)
--- NOTE | 2024-11-13 12:25 | PC.NURSE ---
Care Team Leonie at Pt bedside for eval.
--- NOTE | 2024-11-13 12:44 | MHC.CARE ---
Pt does not meet the criteria for IPLOC and will be discharged to follow up with current providers. Provider in agreement.
[2024-11-13 13:01] VITALS: BP 146/69; PULSE 80; RESP 16; TEMP 36.9; O2SAT 98
== END 2024-11-13 13:06 | disposition home or self-care (01) ==
PROVIDERS: Physician Assistant Medical; Emergency Provider Emergency Medicine; PCP Internal Medicine
DX: F33.1 Major depressive disorder, recurrent, moderate (principal); F41.9 Anxiety disorder, unspecified; S60.221A Contusion of right hand, initial encounter; M79.641 Pain in right hand; M25.531 Pain in right wrist; M79.601 Pain in right arm; X58.XXXA Exposure to other specified factors, initial encounter; Y93.9 Activity, unspecified; Y92.9 Unspecified place or not applicable; Y99.8 Other external cause status; Z51.81 Encounter for therapeutic drug level monitoring; Z79.899 Other long term (current) drug therapy; Z91.148 Patient's other noncompliance with medication regimen for other reason
CPT/HCPCS: 36415; 73090; 73110; 73130; 80053; 80143; 80179; 80307; 81001; 81025; 85025; 87086; 99284; S9485

== ENCOUNTER → 2024-11-13 10:59 | Outpatient (BNV) | payer OTHER, SELFPAY | PROVIDERS: Emergency Provider Emergency Medicine; PCP Internal Medicine; Visit Provider Radiology Diagnostic Radiology | DX: M79.641 Pain in right hand (principal); M25.531 Pain in right wrist; M79.601 Pain in right arm | CPT/HCPCS: 73090; 73110; 73130 ==

== ENCOUNTER 2024-12-17 21:01 | Emergency (ER) | payer OTHER, SELFPAY ==
[2024-12-17 21:07] VITALS: BP 131/92; PULSE 74; RESP 14; TEMP 36.2; O2SAT 95; BMI 27.4
[2024-12-17 21:39] LABS: MANUAL DIFF FLAG NO
[2024-12-17 21:40] LABS: Basophils Percent Auto 0.5 % (0-2); Eosinophils Percent Auto 0.5 % (0-4); Hematocrit 36.9 % (37.0-47.0); Hemoglobin 12.8 g/dl (12.0-16.0); Imm Gran Abs Auto 0.02 X10*3/uL (0.00-0.03); Imm Gran Pct Auto 0.2 % (0.0-0.4); Lymphocytes Absolute Auto 3.1 X10*3/uL (1.2-4.9); Lymphocytes Percent Auto 35.4 % (20-40); Mean Corpuscular HGB Conc 34.7 g/dl (31.0-35.0); Mean Corpuscular Hemoglobin 31.7 pg (27.0-33.0); Mean Corpuscular Volume 91.3 fL (80.0-98.0); Mean Platelet Volume 10.4 fL (9.4-12.3); Monocytes Absolute Auto 0.6 X10*3/uL (0.1-1.2); Monocytes Percent Auto 6.4 % (2-11); Platelet Count 241 X10*3/uL (160-400); Red Blood Count 4.04 X10*6/uL (4.20-5.50); Red Cell Distribution Width 13.1 % (11.0-16.0); White Blood Count 8.7 X10*3/uL (4.8-10.8)
[2024-12-17 21:41] LABS: Appearance Urine Hazy; Color Urine Orange; Specific Gravity - Urine >= 1.030 (1.005-1.025); UMIC TRIGGER UACC YES; Urine Blood Trace (Negative); Urine Ketones Trace mg/dL (Negative)
[2024-12-17 21:42] LABS: UPreg QC Valid YES; Urine Pregnancy NEGATIVE (NEGATIVE)
[2024-12-17 21:50] LABS: Bacteria Urine 3+ (None Seen); Hyaline Casts Urine 0-2 /LPF (0-2); WBC Urine >50 /HPF (0-5)
[2024-12-17 21:51] LABS: Leukocyte Esterase Urine Small (1+) (Negative); UACC Culture Trigger YES
[2024-12-17 21:53] LABS: Alanine Aminotransferase 15 U/L (0-31); Albumin Level 4.3 g/dL (3.5-5.0); Alkaline Phosphatase 78 U/L (39-117); Anion Gap 15 (12-20); Aspartate Amino Transferase 22 U/L (5-31); Bilirubin Total 0.4 mg/dL (0.0-1.0); Blood Urea Nitrogen 20 mg/dL (9-16); Calcium 8.7 mg/dL (8.4-10.2); Carbon Dioxide 23 mmol/L (22-29); Chloride 105 mmol/L (96-108); Creatinine Clr Calc Pharmacy 80.7; Estimated Glomerular Filt Rate > 60; Glucose Random 97 mg/dL (60-115); Lipase 15 U/L (8-78); Potassium 3.6 mmol/L (3.3-5.1); Sodium 139 mmol/L (135-145); Total Protein 7.2 g/dL (6.5-8.0)
[2024-12-17 22:28] VITALS: BP 108/69; PULSE 63; RESP 18; TEMP 36.6; O2SAT 97
--- NOTE | 2024-12-17 22:45 | ED_ITS ---
HPI - Female Genitourinary General Chief complaint: Urogenital-Female Stated complaint: UTI Time Seen by Provider: 12/17/24 21:45 Source: patient Limitations: no limitations History of Present Illness ED Provider: Estelita Wray PA-C HPI Narrative: 44-year-old female presents with dysuria x1 day. Associated suprapubic discomfort. Denies mid back pain, nausea vomiting, fever or history of kidney stones. Related Data Home Medications ?Medication ?Instructions ?Recorded ?Confirmed lorazepam 0.5 mg tablet 0.5 mg PO DAILY PRN anxiety attack 11/13/24 11/13/24 trazodone 50 mg tablet 50 - 100 mg PO BEDTIME PRN insomnia 11/13/24 11/13/24 vilazodone 10 mg tablet (Viibryd) 10 mg PO DAILY 11/13/24 11/13/24 Previous Rx's ?Medication ?Instructions ?Recorded cephalexin 500 mg capsule 500 mg PO Q12H #13 caps 12/17/24 phenazopyridine 200 mg tablet 200 mg PO TID PRN pain #9 tabs 12/17/24 (Pyridium) Allergies Allergy/AdvReac Type Severity Reaction Status Date / Time Sulfa (Sulfonamide Allergy Mild ITCHING Verified 12/17/24 21:11 Antibiotics) [SULFA(SULFONAMIDE ANTIBIOTICS)] naproxen [NAPROXEN] AdvReac Unknown NAUSEA Verified 12/17/24 21:11 Review of Systems 2 Review of Systems: Yes all other systems are reviewed and are negative Constitutional: Constitutional: Denies fatigue and Denies fever(s) Cardiovascular: Cardiovascular: Denies chest pain and Denies dyspnea Respiratory: Respiratory: Denies cough and Denies dyspnea Gastrointestinal: Gastrointestinal: Reports abdominal pain, Denies nausea and Denies vomiting Genitourinary: Genitourinary: Reports dysuria, Denies pelvic pain and Denies flank pain Musculoskeletal: Musculoskeletal: Denies back pain Endocrine: Endocrine: Denies fatigue PMFSH Past Medical History Attestation statement: The following information was validated with the patient. Medical History Anxiety Depression Asthma Social History Social History Alcohol intake: current Alcohol intake frequency: 3 or more drinks per day Alcohol type: beer and hard liquor Advance Directives: No Advance Directives Information Provided: Yes Do you have a plan to hurt others: No Plan Physical Exam 2 Vital Signs: Vital Signs: Last Vital Signs Temp 97.9 F 12/17/24 22:28 Pulse 63 12/17/24 22:28 Resp 18 12/17/24 22:28 BP 108/69 12/17/24 22:28 Pulse Ox 97 12/17/24 22:28 O2 Del Method Room Air 12/17/24 22:28 BMI result Body Mass Index 27.4 Const: Other: Alert well-appearing Orientation/consciousness: patient oriented x3 Resp: Effort & Inspection: normal respiratory effort Cardio: Other: Normal peripheral perfusion GI: Other: Mild tenderness over suprapubic region no guarding : General: Yes no CVA tenderness Back/Spine/Pelvis: Back: no CVA tenderness Skin: Other: Warm dry no rash Neuro: General: patient oriented x3, gait normal, no focal motor deficits and CN's II-XI intact bilaterally Psych: Other: Calm cooperative Medical Decision Making Medical Decision Making MDM Narrative: 44-year-old female presents with dysuria x1 day. Associated suprapubic discomfort. Denies mid back pain, nausea vomiting, fever or history of kidney stones. No chronic issues History: Per patient I have considered the following differential diagnoses: UTI, pyelonephritis, renal colic Plan: Patient here with simple UTI, no systemic symptoms to suggest pyelonephritis. She is very well-appearing, no history of kidney stones, no indication for imaging. We will treat accordingly. Screening labs and UA already obtained. She is not . I have independently reviewed the following tests: Labs: No leukocytosis, not anemic, no electrolyte abnormality, urine infected, not Lab Data 12/17/24 21:34 12/17/24 21:34 Labs: Lab Results 12/17/24 Range/Units 21:34 WBC 8.7 (4.8-10.8) X10*3/uL RBC 4.04 L (4.20-5.50) X10*6/uL Hgb 12.8 (12.0-16.0) g/dl Hct 36.9 L (37.0-47.0) % MCV 91.3 (80.0-98.0) fL MCH 31.7 (27.0-33.0) pg MCHC 34.7 (31.0-35.0) g/dl RDW 13.1 (11.0-16.0) % Plt Count 241 (160-400) X10*3/uL MPV 10.4 (9.4-12.3) fL Immature Gran % (Auto) 0.2 (0.0-0.4) % Neut % (Auto) 57.0 (45-73) % Lymph % (Auto) 35.4 (20-40) % [place] % (Auto) 6.4 (2-11) % Eos % (Auto) 0.5 (0-4) % Baso % (Auto) 0.5 (0-2) % Lymph # (Auto) 3.1 (1.2-4.9) X10*3/uL [place] # (Auto) 0.6 (0.1-1.2) X10*3/uL Eos # (Auto) 0.0 (0.0-0.4) X10*3/uL Baso # (Auto) 0.0 (0.0-0.2) X10*3/uL Abs Immat Gran (auto) 0.02 (0.00-0.03) X10*3/uL Absolute Neuts (auto) 5.0 (2.0-8.3) x10*3/uL Absolute Nucleated RBC 0.000 (0.0-0.012) X10*3/uL Nucleated RBC % (auto) 0.0 (0.0-0.2) /100WBC Sodium 139 (135-145) mmol/L Potassium 3.6 (3.3-5.1) mmol/L Chloride 105 (96-108) mmol/L Carbon Dioxide 23 (22-29) mmol/L Anion Gap 15 (12-20) BUN 20 H (9-16) mg/dL Creatinine 0.78 (0.5-1.4) mg/dL Estim Creat Clear Calc 80.7 Estimated GFR > 60 Random Glucose 97 (60-115) mg/dL Calcium 8.7 (8.4-10.2) mg/dL Total Bilirubin 0.4 (0.0-1.0) mg/dL AST 22 (5-31) U/L ALT 15 (0-31) U/L Alkaline Phosphatase 78 (39-117) U/L Total Protein 7.2 (6.5-8.0) g/dL Albumin 4.3 (3.5-5.0) g/dL Lipase 15 (8-78) U/L Urine Color [place] Urine Appearance Hazy Urine pH 5.0 (5.0-9.0) Ur Specific [place] >= 1.030 H (1.005-1.025) Urine Protein See Note (Neg-Trace) mg/dL Urine Glucose (UA) See Note (Negative) mg/dL Urine Ketones Trace (Negative) mg/dL Urine Blood Trace (Negative) Urine Nitrite See Note (Negative) Ur Leukocyte Esterase Small (1+) H (Negative) Urine RBC 11-20 H (0-2) /HPF Urine WBC >50 H (0-5) /HPF Ur Squamous Epith Cells 11-20 (0-2) /HPF Urine Bacteria 3+ (None Seen) Hyaline Casts 0-2 (0-2) /LPF Urine Test NEGATIVE (NEGATIVE) Discharge Plan Discharge Clinical Impression: Urinary tract infection Patient Disposition: Home, Self-Care Instructions: Urinary Tract Infection in Women (ED) Additional Instructions: You were found to have a urinary tract infection. See home care instructions. Take the Pyridium as needed for urinary pain. Take the cephalexin as directed this is an antibiotic. Follow up with your primary care provider as needed. Prescriptions: New cephalexin 500 mg capsule 500 mg PO Q12H Qty: 13 0RF phenazopyridine [Pyridium] 200 mg tablet 200 mg PO TID PRN (Reason: pain) Qty: 9 0RF No Action trazodone 50 mg tablet 50 - 100 mg PO BEDTIME PRN (Reason: insomnia) vilazodone [Viibryd] 10 mg tablet 10 mg PO DAILY lorazepam 0.5 mg tablet 0.5 mg PO DAILY PRN (Reason: anxiety attack) Print Language: Yemeni
[2024-12-17] MEDS: cephALEXin 500 MG CAPSULE PO (22:56)
[2024-12-17] MEDS: Phenazopyridine HCL 200 MG TABLET PO (22:56)
[2024-12-17 22:59] VITALS: BP 108/69; PULSE 63; RESP 18; TEMP 36.6; O2SAT 97
== END 2024-12-17 23:00 | disposition home or self-care (01) ==
PROVIDERS: Emergency Provider Emergency Medicine; PCP Internal Medicine
DX: N39.0 Urinary tract infection, site not specified (principal); R11.2 Nausea with vomiting, unspecified; R30.0 Dysuria; Z79.899 Other long term (current) drug therapy
CPT/HCPCS: 36415; 80053; 81001; 81025; 83690; 85025; 87086; 87088; 87186; 99283; 99284

== ENCOUNTER 2025-01-09 16:36 | Emergency (ER) | payer OTHER, SELFPAY ==
[2025-01-09 16:52] VITALS: BP 135/71; PULSE 93; RESP 16; TEMP 36.3; O2SAT 97; BMI 27.5
--- NOTE | 2025-01-09 16:55 | ED_ITS ---
HPI - General Adult General Chief complaint: Allergic Reaction Stated complaint: Lump on face Time Seen by Provider: 01/09/25 17:25 Source: patient, RN notes reviewed and old records reviewed Mode of arrival: ambulatory Limitations: no limitations History of Present Illness ED Provider: Jimbo BUI narrative: 44-year-old female presents for evaluation of swelling to her right upper lip. Patient reports his symptoms started about 1 hour ago. She was out to eat at a [place] restaurant. She reports that she did not eat anything that she would consider out of the ordinary. She has a known allergy to cats She reports a small lump to her right upper lip. Denies any difficulty breathing or swallowing She would not take any medications to help alleviate her symptoms Related Data Home Medications ?Medication ?Instructions ?Recorded ?Confirmed lorazepam 0.5 mg tablet 0.5 mg PO DAILY PRN anxiety attack 11/13/24 11/13/24 trazodone 50 mg tablet 50 - 100 mg PO BEDTIME PRN insomnia 11/13/24 11/13/24 vilazodone 10 mg tablet (Viibryd) 10 mg PO DAILY 11/13/24 11/13/24 Previous Rx's ?Medication ?Instructions ?Recorded cephalexin 500 mg capsule 500 mg PO Q12H #13 caps 12/17/24 phenazopyridine 200 mg tablet 200 mg PO TID PRN pain #9 tabs 12/17/24 (Pyridium) Allergies Allergy/AdvReac Type Severity Reaction Status Date / Time Sulfa (Sulfonamide Allergy Mild ITCHING Verified 01/09/25 16:55 Antibiotics) [SULFA(SULFONAMIDE ANTIBIOTICS)] naproxen [NAPROXEN] AdvReac Unknown NAUSEA Verified 01/09/25 16:55 Review of Systems Constitutional: Constitutional: Denies body ache(s), Denies chills and Denies fever(s) ENT: Comments: Small welt above the right upper lip PMFSH Past Medical History Medical History Anxiety Depression Asthma Social History Social History Alcohol intake: current Alcohol intake frequency: 3 or more drinks per day Alcohol type: beer and hard liquor Advance Directives: No Advance Directives Information Provided: No Do you have a plan to hurt others: No Plan Physical Exam ED Vital Signs: Vital Signs - 24 hr 01/09/25 16:52 Temperature 97.4 F Pulse Rate 93 Respiratory Rate 16 Blood Pressure 135/71 Pulse Oximetry 97 Oxygen Delivery Method Room Air BMI result Body Mass Index 27.5 Const General: healthy appearing, comfortable, no acute distress, alert and awake Nutritional Appearance: well nourished Orientation/consciousness: patient oriented x3 HENMT Other: There is a small single urticaria lesion above the right upper lip. No other significant oral, perioral or retropharyngeal edema. Head: Yes normocephalic and Yes atraumatic Throat: Yes posterior oropharynx normal Eyes Eyelids: Yes eyelids normal Conjunctivae: conjunctivae normal Sclerae: sclerae normal Corneas: corneas normal Pupils: Equal, round and reactive pupils present EOM: EOMs intact bilaterally Neck Neck: Yes full ROM Resp Effort & Inspection: normal respiratory effort, able to speak in complete sentences, no audible wheezes and not labored Auscultation: clear to auscultation bilaterally Cardio Rate: regular rate Rhythm: regular rhythm Skin General skin exam: no rashes or lesions noted and elasticity normal Neuro General: patient oriented x3 Cranial nerves: Yes Equal, round and reactive pupils present and Yes Bilaterally intact EOM present Cognition (Neuro): normal cognition Extrem Other: Moving all extremities well without any obvious deformities Course Course Course Narrative: RME, this is a rapid medical exam performed by Corey Choi please refer to primary provider for complete H&P- 44-year-old female presents for evaluation of swelling to her right upper lip. She reports it started while she was eating at a [place] restaurant. Appears to be a small spot of urticaria. Plan for oral Benadryl, Pepcid and prednisone Medications Administered Discontinued Medications Generic Name Dose Route Start Last Admin Trade Name Freq PRN Reason Stop Dose Admin Diphenhydramine HCl 50 mg 01/09/25 16:55 01/09/25 17:00 Diphenhydramine Hcl 25 Mg Capsule PO 01/09/25 16:56 50 mg ONCE ONE Administration Famotidine 20 mg 01/09/25 16:55 01/09/25 17:00 Famotidine 20 Mg Tablet PO 01/09/25 16:56 20 mg ONCE ONE Administration Prednisone 60 mg 01/09/25 16:55 01/09/25 17:00 Prednisone 20 Mg Tablet PO 01/09/25 16:56 60 mg ONCE ONE Administration Medical Decision Making Medical Decision Making MDM Narrative: 44-year-old female presents for evaluation of a small welt above her upper lip. This is consistent with a small area of urticaria. No systemic inflammation, no signs of anaphylaxis. No stridor. She was treated with Benadryl, Pepcid and prednisone. Her symptoms began improving and she requested to leave. Given that her symptoms are improving and not have a low suspicion for anaphylaxis she was discharged Differential Diagnosis Differential Diagnoses: The differential diagnosis associated with the presentation includes Urticaria Allergic reaction Anaphylaxis Discharge Plan Discharge Clinical Impression: Urticaria Patient Disposition: Home, Self-Care Instructions: Urticaria (ED) Additional Instructions: Use Benadryl 25 mg every 6 hours as needed for itching, rash and swelling. Follow-up with your primary doctor, return for new or worsening symptoms Prescriptions: No Action cephalexin 500 mg capsule 500 mg PO Q12H Qty: 13 0RF phenazopyridine [Pyridium] 200 mg tablet 200 mg PO TID PRN (Reason: pain) Qty: 9 0RF trazodone 50 mg tablet 50 - 100 mg PO BEDTIME PRN (Reason: insomnia) vilazodone [Viibryd] 10 mg tablet 10 mg PO DAILY lorazepam 0.5 mg tablet 0.5 mg PO DAILY PRN (Reason: anxiety attack) Discharge Date/Time: 01/09/25 18:02 Print Language: [place]
[2025-01-09] MEDS: diphenhydrAMINE HCL 25 MG CAPSULE 50 MG PO (17:00)
[2025-01-09] MEDS: predniSONE 20 MG TABLET 60 MG PO (17:00)
[2025-01-09] MEDS: Famotidine 20 MG TABLET PO (17:00)
--- OUTSIDE RECORDS SUMMARY | 2025-01-09 18:49 | XMS_ITS | Clinical Summary ---
Author Organization [facility] Address [address] [place] [address] Care Team Providers Care Hairspring Cutter Name Role Phone Unavailable Primary Care Provider Unavailabl e Allergies Active Allergy Reactions Criticality Noted Date Comments Sulfa Antibiotics Swelling 03/19/2021 Face swelling itchy Medications Medication Sig Dispensed Refills Start Date End Date Status vilazodone HCl (Viibryd) 20 MG TABS tablet Take by mouth daily. 0 Active traZODone (DESYREL) 50 MG tablet Take 50 mg by mouth every night at bedtime. 0 Active LORazepam (ATIVAN) 1 MG tablet Take 1 mg by mouth every 6 (six) hours as needed. 0 Active methocarbamol (ROBAXIN) 500 MG tablet Take 1 tablet (500 mg total) by mouth 3 (three) times a day as needed (muscle spasms). 90 tablet 0 03/27/2021 Active Social History Tobacco Use Types Packs/Day Years Used Date Smoking Tobacco: Never Smokeless Tobacco: Never Alcohol Use Standard Drinks/Week Comments Never 0 (1 standard drink = 0.6 oz pur e alcohol) Sex and Gender Information Value Date Recorded Sex Assigned at Not on file Gender Identity Not on file Sexual Orientation Not on file Job Start Date Occupation Industry Not on file Not on file Not on file Last Filed Vital Signs Vital Sign Reading Time Taken Comments Blood Pressure - - Pulse 72 03/19/2021 10:37 AM EDT Temperature 36.9 ??C (98.5 ??F) 03/19/2021 10:37 AM E DT Respiratory Rate - - Oxygen Saturation 97% 03/19/2021 10:37 AM EDT Inhaled Oxygen Concentration - - Weight 77.1 kg (170 lb) 03/19/2021 10:37 AM EDT Height 154.9 cm (5' 1 ) 03/19/2021 10:37 AM EDT Body Mass Index 32.12 03/19/2021 10:37 AM EDT Plan of Treatment Health Maintenance Due Date Last Done Comments Hepatitis B Vaccines (1 of 3 - 3-dose series) 1981 Hepatitis C Screening 1981 COVID-19 Vaccine (#1) 1981 Depression Screening 1993 Preventative Health Evaluation 1999 Cervical Cancer Screening (Pap Smear) 2002 Influenza Vaccine (Season Ended) 2025 05/11/2012, 05/18/2011, 05/19/2010, Additional history exists DTap / Tdap / Td (4 - Td or Tdap) 10/16/2025 10/17/2015, 05/15/2013, 03/12/2010 Pneumococcal Vaccine Aged Out 04/11/2020 No long er eligible based on patient's age to complete this topic RSV Ped < 20 months Aged Out No longe r eligible based on patient's age to complete this topic Karthik Walden Personal/Family Self [address] [facility] [place] [address]
== END 2025-01-09 18:02 | disposition home or self-care (01) ==
PROVIDERS: Emergency Provider Emergency Medicine Emergency Medical Services; PCP Internal Medicine
DX: L50.9 Urticaria, unspecified (principal)
CPT/HCPCS: 99281; 99283

== ENCOUNTER 2025-05-31 17:16 | Emergency (ER) | payer OTHER, SELFPAY ==
--- OUTSIDE RECORDS SUMMARY | 2025-05-31 19:11 | XMS_ITS | Clinical Summary ---
Author Organization [facility] Address [address] [place] [address] Care Team Providers Care Certified Low Vision Therapist Name Role Phone Unavailable Primary Care Provider [...] 72 03/19/2021 10:37 AM EDT Temperature 36.9 C (98.5 F) 03/19/2021 10:37 AM EDT Respiratory Rate - - Oxygen Saturation 97% [...] Cancer Screening (Pap Smear) 2002 Influenza Vaccine (#1) 2025 2, 05/18/2011, 05/19/2010, Additional history exists DTap / [...] Self [address] [place] [id number]
--- OUTSIDE RECORDS SUMMARY | 2025-05-31 19:11 | XMS_ITS | Clinical Summary ---
Author Organization [facility] Address [address] [place] [address] Care Team Providers Care Applications Trainer Name Role Phone Leonardo Honeycutt Primary Care Provider [phone] Allergies No known active allergies Encounters Date Type Department Care Team Description 03/17/2025 8:23 PM EDT - 03/18/2025 2:30 AM EDT Emergency [facility] Emergency Department [address] [place] [address] Viktor Stiles MD Carey, Christopher W, MD Anxiety attack (Primary Dx) Discharge Disposition: Home or Self Care from Last 3 Months Social History Tobacco Use Types Packs/Day Years Used Date Smoking Tobacco: Never Assessed Comments Unknown Sex and Gender Information Value Date Recorded Sex Assigned at Female 03/17/2025 8:34 PM EDT Legal Sex Female 12:05 PM EDT Gender Identity Female 03/17/2025 8:34 PM EDT Sexual Orientation Heterosexual (straight) 03/17 8:34 PM EDT Last Filed Vital Signs Vital Sign Reading Time Taken Comments Blood Pressure 102/59 03/18/2025 2:03 AM EDT Pulse 94 03/18/2025 2:03 AM EDT Temperature 36.3 C (97.4 F) 03/18/2025 2:03 AM EDT Respiratory Rate 18 03/18/2025 2:03 AM EDT Oxygen Saturation 94% 03/18/2025 2:03 AM EDT Inhaled Oxygen Concentration - - Weight - - Height - - Body Mass Index - - Plan of Treatment Health Maintenance Due Date Last Done Comments Hepatitis C Virus Screening 1981 HIV Screening 1994 DTaP/Tdap/Td Vaccines (1 - Tdap) 2000 Hepatitis B Vaccines (1 of 3 - 19+ 3-dose series) 2000 Pneumococcal Vaccine: Pediat balta (0-5 Years) and At-Risk Patients (6 to 49 Years) (1 of 2 - PCV) 2000 Pap Smear (Ages 21-65) 2002 Mammogram 2021 Influenza Vaccine 02/23/2025 05/15/2013, , 05/18/2011, Additional history exists COVID-19 Vaccine ( - 2024-2 6 season) 2025 05/05/2021, 10/13/2020, 09/22/2020 HPV Vaccines (No Doses Required) Completed [place]ICA[place] OF [place] [facility] [place] Applications Trainer Relationship Specialty Start Date End Date Leonardo Honeycutt [facility] [address] [place] [address] PCP - General
--- OUTSIDE RECORDS SUMMARY | 2025-05-31 19:11 | XMS_ITS ---
Author Name [facility] Organization Unknown Encounters Encounter Type Encounter Reason Primary Diagnosis Location Date Emergency Panic disorder (episodic paroxysmal anxiety) Panic disorder (episodic paroxysmal anxiety) Ring 03/17/2025 Ambulatory [facility] [employer] [facility] 05/05/2024 Care Team Organization Name Specialty Phone Email Start Date End [place] KIHEITAI CARLOS Primary Care 03/18/2025 [facility] 11/18/2024 [facility] ABRAN MCDANIEL Primary Care [email or web address] 09/30/2022 4 [facility] AGATA ARTIS Primary Care 06/02/2022 4
--- OUTSIDE RECORDS SUMMARY | 2025-05-31 19:11 | XMS_ITS | Clinical Summary ---
Author Organization [facility] [address] [place] [address] Address [address] [place] [address] Phone Care Team Providers Care Ditching Machine Operating Engineer Name Role Phone Celestine Vargas MD Primary Care Provider Allergies Active Allergy Reactions Criticality Noted Date Comments Other 12/19/2010 Seasonal Allergies Sulfa (Sulfonamide Antibiotics) 03/05/2020 Sulfamethoxazole-Trimetho prim High 04/16/2011 Bactrim [sulfamethoxazole W-trimethoprim] Other Reaction(s): Hives/Urticaria Medications albuterol 2.5 mg /3 mL (0.083 %) nebulizer solution Take 1 Vial by nebulization every 6 hours as needed for Wheezing, Shortness of Breath or Cough. 4 Active azelastine (ASTELIN) 137 mcg (0.1 %) nasal spray 2 Sprays by Each Nare route 2 times daily. Use in each nostril as directed 4 Active diclofenac (VOLTAREN) 1 % topical gel Apply 1 Applicator topically 2 times daily as needed (left elbow pain). 2 Active LORazepam (ATIVAN) 0.5 mg tablet TAKE 1 TABLET BY MOUTH ONCE A DAY NEEDED FOR SEVERE ANXIETY. UP TO 12 TIMES PER MONTH. 3 Active reservoir inhalation (INSPIREASE) device Use with inhaler 5 Active traZODone (DESYREL) 50 mg tablet TAKE 1-2 TABLETS BY MOUTH AT BEDTIME NEEDED FOR INSOMNIA 2 Active vilazodone (Viibryd) 20 mg tablet TAKE 1 TABLET BY MOUTH EVERY MORNING 0 Active vilazodone (VIIBRYD) 10 mg tablet Take by mouth daily. Taken with 20 mg tablet Active fluticasone propionate (FLONASE) 50 mcg/actuation nasal sprayIndications :Allergic rhinitis, unspecified INSTILL 2 SPRAYS IN EACH NOSTRIL DAILY FOR 3-4 WEEKS, THEN DECREASE TO 1 SPRAY IN EACH NOSTRIL DAILY 32 mL 2 5 Active Symbicort 160-4.5 mcg/actuation inhalerIndicatio ns:Moderate persistent asthma with (acute) exacerbation INHALE 2 PUFFS INTO THE LUNGS EVERY 12 HOURS. THIS MEDICATION HAS INHALER STEROID: RINSE MOUTH WITH WATER AND EXPECTORATE AFTER EACH DOSE TO PREVENT ORAL/ESOPHAGEAL CANDIDIASIS OR FUNGAL INFECTION. 30.6 each 3 5 Active cetirizine (ZyrTEC) 10 mg tabletIndication s:Allergic rhinitis, unspecified,Mode rate persistent asthma with (acute) exacerbation TAKE 1 TABLET BY MOUTH DAILY 30 tablet 3 5 Active omeprazole (PriLOSEC) [address] capsule Take 1 capsule (40 mg total) by mouth 1 (one) time each day. 90 each 5 025 Active Ventolin HFA 90 mcg/actuation inhalerIndicatio ns:Moderate persistent asthma with (acute) exacerbation INHALE 2 PUFFS INTO THE LUNGS 4 TIMES DAILY NEEDED FOR WHEEZING OR SHORTNESS OF BREATH. 54 each 1 5 Active Active Problems Problem Noted Date Diagnosed Date [...] months. Obstructive sleep apnea 11/06/2021 Overview (08/02/2024): [facility] Home sleep test 11/03/2021; weight 180; BMI [...] and depression 10/19/2007 Dysplasia of cervix 12/22/2006 Immunizations Immunization Administration Dates Next Due H1N1 Inj Preservative Free 07/16/2009 HPV, Quadrivalent 05/10/2006 Influenza trivalent, 0.5mL, preservative free (Fluarix; FluLaval; Fluzone) ages 6mo and older (Afluria) 3 years and older 05/15/2013,05/11/2012,05/18/2011,05/19,04/10/2009,06/08/2008 [employer] SARS-CoV-2 COVID-19, mRNA, LNP-S, preservative free 05/05/2021 Pneumococcal polysaccharide 23 valent (Pneumovax 23) 2yo and older 04/11/2020 Tdap Tetanus diptheria acell ular pertussis (Boostrix; Adacel) 7yo and older 10/17/2015,05/15/2013,03/12/2010 Surgical History Surgery Date Site/Laterality Comments COLPOSCOPY PROCEDURE: MA COLPOSCOPY ENTIRE VAGINA W/CERVIX IF PRESENT; COMMENT: ? LEEP OTHER SURGICAL HISTORY 11/14/2021 PROCEDURE: MA ARTHRD ANT INTERBODY MIN DSC CRV BELOW [...] Smoking Tobacco: Former Cigarettes Smokeless Tobacco: Never Tobacco Cessation:Counseling Given: Not Answered Alcohol Use Standard Drinks/Week Comments No 0 (1 standard drink = 0.6 oz pur e alcohol) Housing Instability Answer Date Recorde d Are you worried that in the next 2 months you may not have stable housing? No 01/25/2025 Food Access & Nutrition Answer Date Rec orded Do you have access to a vari ety of food including fruits and vegetables? Yes 01/25/2025 Health Literacy Answer Date Recorded How often do you need to hav e someone help you when you read instructions, pamphlets, or other written material from your doctor or pharmacy? Never 01/25/2025 Caregiver: How often do you need to have someone help you when you read instructions, pamphlets, or other written material from your doctor or pharmacy? Not on file 01/25/2025 Financial Risk Answer Date Recorded How hard is it for you to pa y for the very basics like food, housing, medical care, and air conditioning / heating? Not very hard 01/25/2025 Transportation Answer Date Recorded Has the lack of transportati on kept you from meetings, work, or from getting things needed for daily living? No Has the lack of transportati on kept you from medical appointments or from getting medications? No 01/25/2025 Social Isolation Answer Date Recorded How often do you feel lonely or isolated from th ose around you? Never 01/25/2025 Food Risk Answer Date Recorded Within the past 12 months we worried whether our food would run out before we got money to buy more. Never true 01/25/2025 Within the past 12 months th e food we bought just didn't last and we didn't have money to get more. Never true 01/25/2025 Dependent Care Answer Date Recorded Do you need help finding or paying for care for your loved ones. For example, child adolescent psychiatrist or elderly care for an older adult? No 01/25/2025 Education Answer Date Recorded Do you think completing more education or training, like finishing a GED, going to college, or learning a trade, would be helpful for you? No 01/25/2025 Employment and Income Answer Date Recor ded During the last four weeks, have you been actively looking for work? No 01/25/2025 Living Situation Answer Date Recorded What is your living situation? Unrecognized valu e 01/25/2025 Comments No Sex and Gender Information Value Date Recorded Sex Assigned at Not on file Legal Sex Female 10:42 AM EST Gender Identity Not on file Sexual Orientation Not on file Obstetrics History Last Filed Vital Signs Vital Sign Reading Time Taken Comments Blood Pressure 122/74 01/25/2025 11:17 AM EDT Pulse 73 01/25/2025 11:17 AM EDT Temperature 36.3 C (97.4 F) 01/25/2025 11:17 AM EDT Respiratory Rate 12 01/25/2025 11:17 AM EDT Oxygen Saturation - - Inhaled Oxygen Concentration - - Weight 65.3 kg (144 lb) 01/25/2025 11:17 AM EDT Height 154.9 cm (5' 1 ) 01/25/2025 11:17 AM EDT Body Mass Index 27.21 01/25/2025 11:17 AM EDT Plan of Treatment Health Maintenance Due Date Last Done Comments Hepatitis B Vaccines (1 of 3 - 19+ 3-dose series) 2000 HPV Vaccines (2 - 3-dose series) 06/07/2006 05/10/2006 Pneumococcal Vaccine: Pediatrics (0 to 5 Years) and At-Risk Patients (6 to 49 Years) (2 of 2 - PCV) 04/11/2021 04/11/2020 COVID-19 Vaccine (4 - 2024- season) 2025 05/05/2021, 10/13/2020, 09/22/2020 Influenza Vaccine (#1) 2025 3, 05/11/2012, 05/18/2011, Additional history exists DTaP,Tdap,and Td Vaccines (4 - Td or Tdap) 10/16/2025 10/17/2015, 05/15/2013, 03/12/2010 Social Influencers of Health Screening 01/25/2026 01/25/2025 Colorectal Cancer Screening: Colonoscopy 05/20/2026 05/20/2023 Breast Cancer Screening 05/25/2026 05/25/20 24, 05/25/2024, 05/21/2023, Additional history exists Cholesterol Screening (Lipid Panel) 04/03/2027 04/03/2022 Cervical Cancer Screening: HPV 12/24/2027 12/23/2022 RSV Immunization Adult Patients (1 - 1-dose 75+ series) 2056 HIV Screening Completed 07/10/2022 Hepatitis C Screening Completed 07/10/2022 Depression Screening Completed 01/25/2025 HIB Vaccines Aged Out No longer eligi [...] Procedure Name Priority Date/Time Associated Diagnosis Comments SCREENING MAMMOGRAPHY BI 2-VIEW BREAST INC CAD Routine 05/25/2024 1:50 PM EDT Encounter for screening mammogram for malignant neoplasm of breast HPV Routine 12/23/2022 HEPATITIS C SCREENING Routine 07/10/2022 HM HIV SCREENING Routine 07/10/2022 LIPID PANEL Routine 04/03/2022 from Last 3 Months or Most Recently Relevant to Health Maintenance Results * SCREENING MAMMOGRAPHY BI 2-VIEW BREAST INC [...] are composed of fatty and fibroglandular tissue. No suspicious mass, architectural distortion or suspicious calcifications are identified. IMPRESSION: : No mammographic evidence of malignancy. BIRADS 1-Negative; N. Breast density: The breasts have scattered areas of fibroglandular density. 5 year breast cancer risk assessment 0.6 % Lifetime breast cancer risk assessment 8.8 % Breast cancer risk category Low (<15%) Location: [facility], [address] [place] [address], [id number], [phone] Procedure Note Mariela Melendez MD - 06/19/2024 This is a summary report. The complete report is available in thepatient's medical record. If you cannot access the medical record, pleasecontact the sending organization for a detailed fax or copy. Full field digital screening tomosynthesis mammography, reviewed with CADand compared to previous mammograms dating back to [...] Breast cancer risk category Low (<15%) Location: [facility], [address] [place] [address], [address], [phone] Talya Mazariegos MD IMG XR PROCEDURES Final Res ult * Cervical Cancer Screening: HPV (12/23/2022) Pathologist On license of [facility] Cervical Cancer Screening: HPV Negative, Abstracted [facility] Provider HEALTH MAINTENANCE Final Result * HIV Screening (07/10/2022) [facility] HIV Screening Abstracted [facility] Provider HEALTH MAINTENANCE Final Result * Hepatitis C Screening (07/10/2022) Pathologist On license of [facility] Hepatitis C Screening Abstracted [facility] Provider HEALTH MAINTENANCE Final Result * (ABNORMAL) Lipid panel (04/03/2022) Pathologist [facility] LDL/HDL Ratio 5(A) 0 - 4 Triglycerides 239(A) 0 - 150 mg/dL Cholesterol 285(A) 0 - 200 mg/dL HDL 56 >=40 mg/dL LDL Cholesterol 182(A) 0 - 100 mg/dL Blood Venous blood specimen / Unknown Result [facility] Historical Provider LAB BLOOD ORDERABLES Arleen l Result from Last 3 Months or Most Recently Relevant to Health Maintenance Insurance [facility] [employer] [facility] Care Teams Ditching Machine Operating Engineer Relationship Specialty Start Date End Date Celestine Vargas MD [address] [place] [address] PCP - General Internal Medicine 05/07/22
== END 2025-05-31 19:25 | disposition left against medical advice (07) ==
PROVIDERS: Emergency Provider Emergency Medicine
DX: Z53.21 Procedure and treatment not carried out due to patient leaving prior to being seen by health care provider (principal)

== ENCOUNTER 2025-06-04 22:39 | Emergency (ER) | payer OTHER, SELFPAY ==
[2025-06-04 22:48] VITALS: BP 126/83; PULSE 76; RESP 16; TEMP 36.2; O2SAT 98; BMI 27.9
--- OUTSIDE RECORDS SUMMARY | 2025-06-04 23:32 | XMS_ITS | Encounter Summary ---
Author Organization [facility] Address [address] [place] [address] Care Team Providers Care Gravel Roofer Name Role Phone Iva Garcia PA-C Unavailable [phone] Guido Harper PA-C Unavailable Celestine Vargas MD Primary Care Provider [phone] May Reynoso MD Unavailable [phone] Encounter Details Date Type Department Care Team Description 08/11/2023 Telephone Gastroenterology - [address] [place] [address] Farshad Dixon PA-C Social History Tobacco Use Types Packs/Day Years Used Date Smoking Tobacco: Former Cigarettes 0.5 Smokeless Tobacco: Never Alcohol Use Standard Drinks/Week Comments No 0 (1 standard drink = 0.6 oz pur e alcohol) Sex Assigned at Date Recorded Not on file Job Start Date Occupation Industry Not on file Not on file Not on file documented as of this encounter Miscellaneous Notes * Telephone Encounter - Kassandra Lobato - 08/11/2023 10:14 AM EST Booked [facility] at [facility] for patient on September 30 at 8:15am w/ arrival at 8am. Called the patient to notify of appointment details, including nothing to eat/drink after midnight. I also mailed an appointment letter. Order has been faxed to [phone]. documented in this encounter Plan of Treatment Not on file documented as of this encounter Visit Diagnoses Not on filedocumented in this encounter Care Teams Gravel Roofer Relationship Specialty Start Date End Date Celestine Vargas MD [address] [place] [address] PCP - General Internal Medicine 05/07/22 Iva Garcia PA-C [address] [address] Specialist Neurosurgery 12/05/21 Guido Harper PA-C [address] [address] Specialist Neurosurgery 01/15/22 May Reynoso MD [address] [address] Surgeon Neurosurgery 03/26/23 documented as of this encounter
--- OUTSIDE RECORDS SUMMARY | 2025-06-04 23:32 | XMS_ITS | Encounter Summary ---
Author Organization [facility] Address [address] [place] [address] Care Team Providers Care Fountain Roller Assembler Name Role Phone Samina Canales MD Primary Care Provider Unavaila Gissell Abarca MD Primary Care Provider Unavail able Ata Welch MD Primary Care Provider [phone] Iva Garcia PA-C Unavailable [phone] Guido Harper PA-C Unavailable [phone] Celestine Vargas MD Primary Care Provider [phone] May Reynoso MD Unavailable [phone] Encounter Details Date Type Department Care Team Description 05/25/[facility] [address] [place] [address] [id number] Md Katja Social History Tobacco Use Types Packs/Day Years Used Date Smoking Tobacco: Every Day Cigarettes 0.5 Smokeless Tobacco: Never Alcohol Use Standard Drinks/Week Comments No 0 (1 standard drink = 0.6 oz pur e alcohol) occas/ none with Sex Assigned at Date Recorded Not on file Job Start Date Occupation Industry Not on file Not on file Not on file documented as of this encounter Miscellaneous Notes * Telephone Encounter - Kimberly Grant L.P.N. - 05/25/2016 4:08 PM EDT Appointment scheduled with Jose on Wednesday the 2nd at 10 am pt was seen at [facility] , please obtain records. Thank You * Telephone Encounter - Kimberly Grant L.P.N. - 05/25/2016 4:06 PM EDT Pt states she went to [facility] Wednesday because of anxiety. Was given 14 Pills. Pt states sheused to be on Zoloft, but has stopped. Appt given w/ Jose on Wednesday. * Telephone Encounter - Kimberly Grant L.P.N. - 05/25/2016 2:56 PM EDT msg left on voice mail to call back * Telephone Encounter - Deena Turner PA-C - 05/25/2016 1:23 PM EDT Needs to be seen by PCP team to be on controlled medications. * Telephone Encounter - Farida Loving M.A. - 05/25/2016 1:16 PM EDT Pt last saw Deena Turner on 01/07/16. Please review and advise on this pt * Telephone Encounter - Farida Loving M.A. - 05/25/2016 1:15 PM EDTFrom: Deena Walden Sent: 05/25/2016 1:03 PM EDT Subject: Request Refill Not On Medication List Request submitted by Deena Walden on 05/25/2016 at 1:03:26 PM Form Title: Request Refill Not On Medication List Submitted Data From: Deena Walden Primary care provider: Samina Canales MD --- Contact Information --- Contact Phone #: [phone] --- Medication Request Information --- Medication name: Lorazepam Dosage: 0.5 mg instructions: Take one tablet by mouth twice a day # Dispensed: 14 Ordering Provider: It says Deena ortiz Pharmacy: [address] Other Details: I use to take Ativan before. I started taking Zoloft back in December. I don't have an appointment until June and ended up in the er for a bad anxiety attack. Lately my Zoloft has beenmaking my anxiety worse. Ativan has been helpin a lot.i don't have many Ativan left. If any questions please give me a call. documented in this encounter Plan of Treatment Not on file documented as of this encounter Visit Diagnoses Not on filedocumented in this encounter Care Teams Fountain Roller Assembler Relationship Specialty Start Date End Date Samina Canales MD PCP - General Internal Medicine 05/21/16 10/11/18 Gissell Hernandez MD PCP - General Internal Medicine 10/12/18 08/19/21 Ata Welch MD [address] [place] [address] PCP - General Internal Medicine 08/20/21 05/06/22 Celestine Vargas MD [address] [place] [address] PCP - General Internal Medicine 05/07/22 Iva Garcia PA-C [address] [place] [address] Specialist Neurosurgery 12/05/21 Guido Harper PA-C [address] [address] Specialist Neurosurgery 01/15/22 May Reynoso MD [address] [place] [address] Surgeon Neurosurgery 03/26/23 documented as of this encounter
--- OUTSIDE RECORDS SUMMARY | 2025-06-04 23:32 | XMS_ITS | Encounter Summary ---
Author Organization [facility] Address [address] [place] [address] Care Team Providers Care Nurse Navigator Name Role Phone Shashi Sharma MD Primary Care Provider Becky Scar Middleton MD Primary Care Provider Unavail able Daniella Zuleta DO Primary Care Pro vider Unavailable Aung Thompson MD Primary Care Provider Samina Canales MD Primary Care Provider Unavaila Gissell Abarca MD Primary Care Provider Unavail able Ata Welch MD Primary Care Provider [phone] Iva Garcia PA-C Unavailable [phone] Guido Harper PA-C Unavailable [phone] Celestine Vargas MD Primary Care Provider [phone] May Reynoso MD Unavailable [phone] Encounter Details Date Type Department Care Team Description 06/04/2013 Hospital Medical Records [address] [place] [address] [facility] Social History Tobacco Use Types Packs/Day Years Used Date Smoking Tobacco: Former Cigarettes 0.5 Smokeless Tobacco: Never Alcohol Use Standard Drinks/Week Comments No 0 (1 standard drink = 0.6 oz pur e alcohol) Sex Assigned at Date Recorded Not on file Job Start Date Occupation Industry Not on file Not on file Not on file documented as of this encounter Plan of Treatment Not on file documented as of this encounter Visit Diagnoses Not on filedocumented in this encounter Care Teams Nurse Navigator Relationship Specialty Start Date End Date Shashi Sharma MD PCP - General 02/29/08 07/25/14 Scar Otto MD PCP - General Internal Medicine 09/18/14 04/30/15 Daniella Zuleta DO PCP - General Internal Medicine 05/01/15 06/26/15 Aung Thompson MD [address] [place] [address] PCP - General Internal Medicine 06/27/15 05/20/16 Samina Canales MD [address] [place] [address] PCP - General Internal Medicine 05/21/16 10/11/18 Gissell Hernandez MD [address] [place] [address] PCP - General Internal Medicine 10/12/18 08/19/21 Ata Welch MD [address] [place] [address] PCP - General Internal Medicine 08/20/21 05/06/22 Celestine Vargas MD [address] [place] [address] PCP - General Internal Medicine 05/07/22 Iva Garcia PA-C [address] [place] [address] Specialist Neurosurgery 12/05/21 Guido Harper PA-C [address] [address] Specialist Neurosurgery 01/15/22 May Reynoso MD [address] [address] Surgeon Neurosurgery 03/26/23 documented as of this encounter
--- OUTSIDE RECORDS SUMMARY | 2025-06-04 23:32 | XMS_ITS | Encounter Summary ---
Author Organization [facility] Address [address] [place] [address] Care Team Providers Care Glove Pairer Name Role Phone Shashi Sharma MD Primary Care Provider Becky Scar Middleton MD Primary Care Provider Unavail able Daniella Zuleta DO Primary Care Pro vider Unavailable Aung Thompson MD Primary Care Provider Samina Canales MD Primary Care Provider Unavaila Gissell Abarca MD Primary Care Provider Unavail able Ata Welch MD Primary Care Provider Iva Garcia PA-C Unavailable [phone] Guido Harper PA-C Unavailable [phone] Celestine Vargas MD Primary Care Provider [phone] May Reynoso MD Unavailable [phone] Encounter Details Date Type Department Care Team Description 04/25/2013 Watch Dial Maker Report Medical Records [address] [place] [address] Elodia Daniel [address] [place] [address] Social History Tobacco Use Types Packs/Day Years Used Date Smoking Tobacco: Every Day Cigarettes 0.8 Smokeless Tobacco: Never Alcohol Use Standard Drinks/Week Comments No 0 (1 standard drink = 0.6 oz pur e alcohol) occas Sex Assigned at Date Recorded Not on file Job Start Date Occupation Industry Not on file Not on file Not on file documented as of this encounter Plan of Treatment Not on file documented as of this encounter Visit Diagnoses Not on filedocumented in this encounter Care Teams Glove Pairer Relationship Specialty Start Date End Date Shashi Sharma MD PCP - General 02/29/08 07/25/14 Scar Otto MD PCP - General Internal Medicine 09/18/14 04/30/15 Daniella Zuleta DO PCP - General Internal Medicine 05/01/15 06/26/15 Aung Thompson MD [address] [place] [address] PCP - General Internal Medicine 06/27/15 05/20/16 Samina Canales MD [address] [place] [address] PCP - General Internal Medicine 05/21/16 10/11/18 Gissell Hernandez MD [address] [place] [address] PCP - General Internal Medicine 10/12/18 08/19/21 Ata Welch MD [address] [place] [address] PCP - General Internal Medicine 08/20/21 05/06/22 Celestine Vargas MD [address] [place] [address] PCP - General Internal Medicine 05/07/22 Iva Garcia PA-C [address] [place] [address] Specialist Neurosurgery 12/05/21 Guido Harper PA-C [address] [place] [address] Specialist Neurosurgery 01/15/22 May Reynoso MD [address] [address] Surgeon Neurosurgery 03/26/23 documented as of this encounter
--- OUTSIDE RECORDS SUMMARY | 2025-06-04 23:32 | XMS_ITS | Encounter Summary ---
Author Organization [facility] Address [address] [place] [address] Care Team Providers Care Die Cast Technician Name Role Phone Samina Canales MD Primary Care Provider Unavaila Gissell Abarca MD Primary Care Provider Unavail able Ata Welch MD Primary Care Provider [phone] Iva Garcia PA-C Unavailable [phone] Guido Harper PA-C Unavailable [phone] Celestine Vargas MD Primary Care Provider May Reynoso MD Unavailable [phone] Reason for Visit * Reason Onset Date Comments REFERRAL 02/22/2017 Encounter Details Date Type Department Care Team Description 02/22/2017 Telephone Physiatry - [address] [address] Jun Crowe, REFERRAL Social History Tobacco Use Types Packs/Day Years [...] encounter Miscellaneous Notes * Telephone Encounter - N'Ankita Mock - 02/22/2017 9:31 AM EDT Patient was referred to Physiatry for right elbow pain. Patient no showed appointment with . Tried to contact patient several times to reschedule appointment with no response. Patient will be taken off of referrals report.FYMaria Del Carmen documented in this encounter Plan of Treatment Not on file documented as of this encounter Visit Diagnoses Not on filedocumented in this encounter Care Teams Die Cast Technician Relationship Specialty Start Date End Date Samina Canales MD PCP - General Internal Medicine 05/21/16 10/11/18 Gissell Hernandez MD PCP - General Internal Medicine 10/12/18 08/19/21 Ata Welch MD [address] [place] [address] PCP - General Internal Medicine 08/20/21 05/06/22 Celestine Vargas MD [address] [place] [address] PCP - General Internal Medicine 05/07/22 Iva Garcia PA-C [address] [place] [address] Specialist Neurosurgery 12/05/21 Guido Harper PA-C [address] [place] [address] Specialist Neurosurgery 01/15/22 May Reynoso MD [address] [address] Surgeon Neurosurgery 03/26/23 documented as of this encounter
--- OUTSIDE RECORDS SUMMARY | 2025-06-04 23:32 | XMS_ITS | Encounter Summary ---
Author Organization [facility] Address [address] [place] [address] Care Team Providers Care Elementary Substitute Teacher Name Role Phone Iva Garcia PA-C Unavailable Guido Harper PA-C Unavailable [phone] Celestine Vargas MD Primary Care Provider [phone] May Reynoso MD Unavailable [phone] Reason for Visit * Reason Comments E-prescribe Rx Request Encounter Details Date Type Department Care Team Description 01/29/2023 Refill Pulmonology - [place] 175 [facility] [address] [place] [phone] Althea Norwood APRN 175 [facility] [address] [place] [phone] E-prescribe Rx Request Social History Tobacco Use Types Packs/Day Years Used Date Smoking Tobacco: Former Cigarettes 0.5 Smokeless Tobacco: Never Alcohol Use Standard Drinks/Week Comments No 0 (1 standard drink = 0.6 oz pur e alcohol) Sex Assigned at Date Recorded Not on file Job Start Date Occupation Industry Not on file Not on file Not on file COVID-19 Exposure Response Date Recorded In the last 10 days, have yo u been in contact with someone who was confirmed or suspected to have Coronavirus/COVID-19? No / Unsure 01/20/2023 1:12 PM EDT documented as of this encounter Plan of Treatment Not on file documented as of this encounter Visit Diagnoses Diagnosis Moderate persistent asthma with acute exacerbation documented in this encounter Care Teams Elementary Substitute Teacher Relationship Specialty Start Date End Date Celestine Vargas MD [address] [place] [address] PCP - General Internal Medicine 05/07/22 Iva Garcia PA-C [address] [address] Specialist Neurosurgery 12/05/21 Guido Harper PA-C [address] [address] Specialist Neurosurgery 01/15/22 May Reynoso MD [address] [address] Surgeon Neurosurgery 03/26/23 documented as of this encounter
--- OUTSIDE RECORDS SUMMARY | 2025-06-04 23:32 | XMS_ITS | Encounter Summary ---
Author Organization [facility] Address [address] [place] [address] Care Team Providers Care Maintenance Equipment Operator Name Role Phone Shashi Sharma MD Primary Care Provider Becky vailable Elvia Silveira MD Primary Care Provider [phone] Scar Otto MD Primary Care Provider Unavail able Daniella Zuleta DO Primary Care Pro vider Unavailable Aung Thompson MD Primary Care Provider Samina Canales MD Primary Care Provider Unavaila Gissell Abarca MD Primary Care Provider Unavail able Ata Welch MD Primary Care Provider [phone] Iva Garcia PA-C Unavailable [phone] Guido Harper PA-C Unavailable [phone] Celestine Vargas MD Primary Care Provider [phone] May Reynoso MD Unavailable [phone] Encounter Details Date Type Department Care Team Description 02/06/2005 Orders Only Medical [address] [place], [place] [id number] [facility] [address] [place], [place] [id number] ROUTINE GENERAL MEDICAL EXAMINATION AT A HEALTH CARE FACILITY (Primary Dx) Social History Tobacco Use Types Packs/Day Years Used Date Smoking Tobacco: Never Assessed Sex Assigned at Date Recorded Not on file Job Start Date Occupation Industry Not on file Not on file Not on file documented as of this encounter Plan of Treatment Scheduled Orders Name Type Priority Associated Diagnoses Orde r Schedule VENIPUNCTURE Lab Routine Routine General Medical Examination At A Health Care Facility Ordered: 02/06/2005 documented as of this encounter Procedures Procedure Name Priority Date/Time Associated Diagnosis Comments CBC WITHOUT DIFF Routine 02/06/2005 12:0 1 PM EDT Routine General Medical Examination At A Health Care Facility CHG BASIC METABOLIC PANEL CALCIUM TOTAL Routine 02/06/2005 12:01 PM EDT Routine General Medical Examination At A Health Care Facility CHG RHEUMATOID FACTOR QUANTITATIVE Routine 02/06/2005 12:01 PM EDT Routine General Medical Examination At A [facility] Care Facility CHG ANTINUCLEAR ANTIBODIES CONNER Routine 02/06/2005 12:01 PM EDT Routine General Medical Examination At A [facility] Care Facility CHG SEDIMENTATION RATE RBC NON-AUTOMATED Routine 02/06/2005 12:01 PM EDT Routine General Medical Examination At A Health Care Facility CHG ASSAY OF BLOOD/URIC ACID Routine 02/06/2005 12:01 PM EDT Routine General Medical Examination At A Health Care Facility documented in this encounter Results * CBC WITHOUT DIFF (02/06/2005 12:01 PM EDT) WHITE BLOOD COUNT 6.7 4.8 - 10.8 x10-3 [facility] RED BLOOD COUNT 4.5 3.8 - 4.8 x10-6 [facility] Hemoglobin 13.5 12.0 - 15.0 g/dL [facility] Hematocrit 39.7 36 - 46 % [facility] MEAN CORPUSCULAR VOLUME 89.2 79 - 98 fl [facility] HEMOGLOBIN 30.3 27 - 32 pg [facility] [employer] [facility] [facility] HGB CONC 34.0 32 - 37 g/dl [facility] RED CELL DISTRIBUTION WIDTH 13.3 11 - 15 % [facility] PLT COUNT 219 130 - 400 x10-3 [facility] 02/06/2005 12:0 1 PM EDT 02/06/2005 12:02 PM EDT Narrative [facility] - 02/06/2005 3:57 PM EDT Specify:->ANTI-NUCLEAR AB PROFILE [facility] Performing Organization Address City/[facility]/ZIP Co de Phone Number [facility] * (ABNORMAL) BASIC METABOLIC PANEL (02/06/2005 12:01 PM EDT) Pathologist [facility] GLUCOSE 72 70 - 110 mg/dL [facility] Blood Urea Nitrogen 10 5 - 25 mg/dL [facility] creatinine 0.6(L) 0.7 - 1.5 mg/dL [facility] Sodium 139 133 - 145 mEq/L [facility] Potassium 4.1 3.5 - 5.2 mEq/L [facility] Chloride 105 96 - 108 mEq/L [facility] CARBON DIOXIDE (CO2) 25.9 21.0 - 32.0 mEq/L [facility] CALCIUM 9.4 8.5 - 10.5 mg/dL [facility] 02/06/2005 12:0 1 PM EDT 02/06/2005 12:02 PM EDT Narrative [facility] - 02/06/2005 4:51 PM EDT Specify:->ANTI-NUCLEAR AB PROFILE [facility] Performing Organization Address [facility]/ZIP Co de Phone Number [facility] * RHEUMATOID FACTOR ASSAY (02/06/2005 12:01 PM EDT) Pathologist [facility] RHEUMATOID FACTOR <10 <10 IU/ml [facility] 02/06/2005 12:0 1 PM EDT 02/06/2005 12:02 PM EDT Narrative [facility] - 02/07/2005 1:00 PM EDT Specify:->ANTI-NUCLEAR AB PROFILE [facility] LAB Performing Organization Address City/[facility]/ZIP Co de Phone Number [facility] * ANTINUCLEAR ANTIBODIES, ASSAY (02/06/2005 12:01 PM EDT) ANTI-NUCLEAR ANTIBODY SCREEN NEGATIVE NEGATIVE [facility] Comment: CONNER test should be ordered only if a clinical evidence ofSLE or other rheumatic condition exists. CONNER test shouldnot be used for random screening for SLE. Reviewed by Dr. Mcgovern 02/06/2005 12:0 1 PM EDT 02/06/2005 12:02 PM EDT Narrative [facility] - 02/09/2005 3:05 PM EDT Specify:->ANTI-NUCLEAR AB PROFILE [facility] * RBC SEDIMENTATION RATE, NON-AUTO (02/06/2005 12:01 PM EDT) Pathologist [facility] ERYTHROCYTE SEDIMENTATION RATE 5 0 - 20 mm/hr [facility] 02/06/2005 12:0 1 PM EDT 02/06/2005 12:02 PM EDT Narrative [facility] - 02/06/2005 6:12 PM EDT Specify:->ANTI-NUCLEAR AB PROFILE [facility] Performing Organization Address City/[facility] Co de Phone Number [facility] * URIC ACID (02/06/2005 12:01 PM EDT) Pathologist [facility] Uric Acid 5.5 2.1 - 6.2 mg/dL [facility] 02/06/2005 12:0 1 PM EDT 02/06/2005 12:02 PM EDT Narrative [facility] - 02/06/2005 4:51 PM EDT Specify:->ANTI-NUCLEAR AB PROFILE [facility] Performing Organization Address City/[facility] Co de Phone Number [facility] documented in this encounter Visit Diagnoses Diagnosis Routine general medical examination at a health care facility- Primary documented in this encounter Care Teams Maintenance Equipment Operator Relationship Specialty Start Date End Date Shashi Sharma MD PCP - General 02/29/08 07/25/14 Elvia Silveira MD [address] [place] [address] PCP - General 01/12/05 02/28/08 Scar Otto MD [address] [place] [address] PCP - General Internal Medicine 09/18/14 04/30/15 Liliana Garibay DO Daniella [address] [place] [address] PCP - General Internal Medicine 05/01/15 06/26/15 Aung Thompson MD [address] [place], [place] [phone] PCP - General Internal Medicine 06/27/15 05/20/16 Samina Canales MD [address] [place] [address] PCP - General Internal Medicine 05/21/16 10/11/18 Gissell Hernandez MD [address] [place], [place] [phone] PCP - General Internal Medicine 10/12/18 08/19/21 Ata Welch MD [address] [place] [address] PCP - General Internal Medicine 08/20/21 05/06/22 Celestine Vargas MD [address] [place] [address] PCP - General Internal Medicine 05/07/22 Iva Garcia PA-C [address] [place] [address] Specialist Neurosurgery 12/05/21 Guido Harper PA-C [address] [address] Specialist Neurosurgery 01/15/22 May Reynoso MD [address] [address] Surgeon Neurosurgery 03/26/23 documented as of this encounter
--- OUTSIDE RECORDS SUMMARY | 2025-06-04 23:32 | XMS_ITS | Encounter Summary ---
Author Organization [facility] Address [address] [place] [address] Care Team Providers Care Glazier Metal Furniture Name Role Phone Aung Thompson MD Primary Care Provider [phone] Samina Canales MD Primary Care Provider Unavaila Gissell Abarca MD Primary Care Provider Unavail able Ata Welch MD Primary Care Provider Iva Garcia PA-C Unavailable Guido Harper PA-C Unavailable Celestine Vargas MD Primary Care Provider [phone] May Reynoso MD Unavailable [phone] Encounter Details Date Type Department Care Team Description 09/11/2015 Optical Instrument Assembly Supervisor Report Medical Records [address] [place] [address] [facility] Medical [facility] [address] [place], [place] [phone] Social History Tobacco Use Types Packs/Day Years Used Date Smoking Tobacco: Every Day Cigarettes 0.3 Smokeless Tobacco: Never Alcohol Use Standard Drinks/Week [...] on filedocumented in this encounter Care Teams Glazier Metal Furniture Relationship Specialty Start Date End Date Aung Thompson MD [address] [place] [address] PCP - General Internal Medicine 06/27/15 05/20/16 Samina Caanles MD [address] [place] [address] PCP - General Internal Medicine 05/21/16 10/11/18 Gissell Hernandez MD [address] [place] [address] PCP - General Internal Medicine 10/12/18 08/19/21 Ata Welch MD [address] [place] [address] PCP - General Internal Medicine 08/20/21 05/06/22 Celestine Vargas MD [address] [place] [address] PCP - General Internal Medicine 05/07/22 Iva Garcia PA-C [address] [place] [address] Specialist Neurosurgery 12/05/21 Guido Harper PA-C [address] [place] [address] Specialist Neurosurgery 01/15/22 May Reynoso MD [address] [address] Surgeon Neurosurgery 03/26/23 documented as of this encounter
--- OUTSIDE RECORDS SUMMARY | 2025-06-04 23:32 | XMS_ITS | Encounter Summary ---
Author Organization [facility] Address [address] [place] [address] Care Team Providers Care Youth Career Specialist Name Role Phone Samina Canales MD Primary Care Provider Unavaila Gissell Abarca MD Primary Care Provider Unavail able Ata Welch MD Primary Care Provider [phone] Iva Garcia PA-C Unavailable [phone] Guido Harper PA-C Unavailable [phone] Celestine Vargas MD Primary Care Provider [phone] May Reynoso MD Unavailable [phone] Encounter Details Date Type Department Care Team Description 12/28/2017 Refill Pulmonology [address] [place] [address] Gurinder Ochoa MD Social History Tobacco Use Types Packs/Day Years [...] encounter Miscellaneous Notes * Telephone Encounter - Yuri Maxwell - 12/29/2017 11:03 AM EDTFrom: Deena Walden To: Gurinder Ochoa MD Sent: 12/28/2017 11:46 AM EDT Subject: Medication Renewal Request Original authorizing provider: MD Deena Schwartz would like a refill of the following medications: fluticasone (FLOVENT HFA) 110 MCG/ACT inhaler [Gurinder Ochoa MD] Preferred pharmacy: [facility] [address] [place] [address] Comment: Medication renewals requested in this message routed to other providers: ALBUTEROL SULFATE (PROAIR HFA) 108 (90 BASE) MCG/ACT Aero Soln [Aung Thompson MD] documented in this encounter Plan of Treatment Not on file documented as of this encounter Visit Diagnoses Diagnosis Asthma, mild persistent, uncomplicated documented in this encounter Care Teams Youth Career Specialist Relationship Specialty Start Date End Date Samina Canales MD PCP - General Internal Medicine 05/21/16 10/11/18 Gissell Hernandez MD PCP - General Internal Medicine 10/12/18 08/19/21 Ata Welch MD [address] [place] [address] PCP - General Internal Medicine 08/20/21 05/06/22 Celestine Vargas MD [address] [place] [address] PCP - General Internal Medicine 05/07/22 Iva Garcia PA-C [address] [place] [address] Specialist Neurosurgery 12/05/21 Guido Harper PA-C [address] [place] [address] Specialist Neurosurgery 01/15/22 May Reynoso MD [address] [address] Surgeon Neurosurgery 03/26/23 documented as of this encounter
--- OUTSIDE RECORDS SUMMARY | 2025-06-04 23:32 | XMS_ITS | Encounter Summary ---
Author Organization [facility] Address [address] [place] [address] Care Team Providers Care Manufacturing Executive Name Role Phone Ata Welch MD Primary Care Provider [phone] Iva Garcia PA-C Unavailable Guido Harper PA-C Unavailable Celestine Vargas MD Primary Care Provider [phone] May Reynoso MD Unavailable [phone] Encounter Details Date Type Department Care Team Description 11/07/2021 [facility] Medical Records [address] [place] [address] Pillo Morillo PA-C 175 [facility] [address] [place] [address] Social History Tobacco Use Types Packs/Day Years [...] suspected to have Coronavirus/COVID-19? No / Unsure 10/13/2021 7:56 AM EDT documented as of this encounter Plan of Treatment Not on file documented as of this encounter Visit Diagnoses Not on filedocumented in this encounter Care Teams Manufacturing Executive Relationship Specialty Start Date End Date Ata Welch MD [address] [place] [address] PCP - General Internal Medicine 08/20/21 05/06/22 Celestine Vargas MD [address] [place] [address] PCP - General Internal Medicine 05/07/22 Iva Garcia PA-C [address] [address] Specialist Neurosurgery 12/05/21 Guido Harper PA-C [address] [address] Specialist Neurosurgery 01/15/22 May Reynoso MD [address] [address] Surgeon Neurosurgery 03/26/23 documented as of this encounter
--- OUTSIDE RECORDS SUMMARY | 2025-06-04 23:32 | XMS_ITS | Encounter Summary ---
Author Organization [facility] Address [address] [place] [address] Care Team Providers Care Staying Machine Operator Name Role Phone Ata Welch MD Primary Care Provider [phone] Iva Garcia PA-C Unavailable [phone] Guido Harper PA-C Unavailable [phone] Celestine Vargas MD Primary Care Provider [phone] May Reynoso MD Unavailable [phone] Encounter Details Date Type Department Care Team Description 11/06/2021 Orders Only Medical Records [address] [place] [address] Cinthia Tracy PA Social History Tobacco Use Types Packs/Day Years [...] on file documented as of this encounter Procedures Procedure Name Priority Date/Time Associated Diagnosis Comments OUTSIDE SLEEP STUDY Routine 11/03/2021 OUTSIDE SLEEP STUDY Routine 10/21/2021 documented in this encounter Results * OUTSIDE SLEEP STUDY (11/03/2021) C[facility]ULMON[facility] * OUTSIDE SLEEP STUDY (10/21/2021) [facility]MON[facility] documented in this encounter Visit Diagnoses Not on filedocumented in this encounter Care Teams Staying Machine Operator Relationship Specialty Start Date End Date Ata Welch MD [address] [place] [address] PCP - General Internal Medicine 08/20/21 05/06/22 Celestine Vargas MD [address] [place] [address] PCP - General Internal Medicine 05/07/22 Iva Garcia PA-C [address] [address] Specialist Neurosurgery 12/05/21 Guido Harper PA-C [address] [address] Specialist Neurosurgery 01/15/22 May Reynoso MD [address] [address] Surgeon Neurosurgery 03/26/23 documented as of this encounter
--- OUTSIDE RECORDS SUMMARY | 2025-06-04 23:32 | XMS_ITS | Encounter Summary ---
Author Organization [facility] Address [address] [place] [address] Care Team Providers Care Water Resource Manager Name Role Phone Iva Garcia PA-C Unavailable Guido Harper PA-C Unavailable [phone] Celestine Vargas MD Primary Care Provider [phone] May Reynoso MD Unavailable [phone] Encounter Details Date Type Department Care Team Description 03/17/2024 Telephone Adult Medicine [address] [address] Celestine Vargas MD [address] [place] [id number] Social History Tobacco Use Types Packs/Day Years [...] on filedocumented in this encounter Care Teams Water Resource Manager Relationship Specialty Start Date End Date Celestine Vargas MD [address] [place] [address] PCP - General Internal Medicine 05/07/22 Iva Garcia PA-C [address] [address] Specialist Neurosurgery 12/05/21 Guido Harper PA-C [address] [address] Specialist Neurosurgery 01/15/22 May Reynoso MD [address] [address] Surgeon Neurosurgery 03/26/23 documented as of this encounter
--- OUTSIDE RECORDS SUMMARY | 2025-06-04 23:32 | XMS_ITS | Encounter Summary ---
Author Organization [facility] Address [address] [place] [address] Care Team Providers Care Shoe Folder Name Role Phone Iva Garcia PA-C Unavailable [phone] Guido Harper PA-C Unavailable [phone] Celestine Vargas MD Primary Care Provider [phone] May Reynoso MD Unavailable [phone] Reason for Visit * Reason Comments E-prescribe Rx Request Encounter Details Date Type Department Care Team Description 08/28/2022 Refill Pulmonology - [place] 175 [facility] [address] [place] [phone] Althea Norwood APRN 175 [facility] [address] [place] [phone] E-prescribe Rx Request Social History Tobacco Use [...] suspected to have Coronavirus/COVID-19? No / Unsure 07/29/2022 9:57 AM EST documented as of this encounter Plan of Treatment Not on file documented as of this encounter Visit Diagnoses Diagnosis Moderate persistent asthma with acute exacerbation Allergic rhinitis, unspecified seasonality, unspecified trigger Anxiety Anxiety state, unspecified PND (post-nasal drip) Postnasal drip Former smoker Personal history of tobacco use, presenting hazards to health documented in this encounter Care Teams Shoe Folder Relationship Specialty Start Date End Date Celestine Vargas MD [address] [place] [address] PCP - General Internal Medicine 05/07/22 Iva Garcia PA-C [address] [address] Specialist Neurosurgery 12/05/21 Guido Harper PA-C [address] [address] Specialist Neurosurgery 01/15/22 May Reynoso MD [address] [address] Surgeon Neurosurgery 03/26/23 documented as of this encounter
--- OUTSIDE RECORDS SUMMARY | 2025-06-04 23:32 | XMS_ITS | Encounter Summary ---
Author Organization [facility] Address [address] [place] [address] Care Team Providers Care Steamfitter Name Role Phone Shashi Ng MD Primary Care Provider Becky Scar Middleton MD Primary Care Provider Unavail able Daniella Zuleta DO Primary Care Pro vider Unavailable Aung Thompson MD Primary Care Provider [phone] Samina Canales MD Primary Care Provider Unavaila Gissell Abarca MD Primary Care Provider Unavail able Ata Welch MD Primary Care Provider [phone] Iva Garcia PA-C Unavailable [phone] Guido Harper PA-C Unavailable Celestine Vargas MD Primary Care Provider [phone] May Reynoso MD Unavailable [phone] Encounter Details Date Type Department Care Team Description 03/16/2011 Refill Adult Medicine [address] [phone] Shashi Ng MD Social History Tobacco Use Types Packs/Day Years Used Date Smoking Tobacco: Every Day Cigarettes 1 Smokeless Tobacco: Never Alcohol Use Standard Drinks/Week Comments Yes 0 (1 standard drink = 0.6 oz pur e alcohol) occas Sex Assigned at Date Recorded Not on file Job Start Date Occupation Industry Not on file Not on file Not on file documented as of this encounter Miscellaneous Notes * Telephone Encounter - Michelle Reed M.A. - 03/16/2011 5:09 PM EDTFrom: JOANNA PRUITT To: Shashi Ng Sent: WedMar 16, 2011 4:59 PM Subject: Medication Renewal Request Original authorizing provider: MD Joanna Jarquin would like a refill of the following medications: lorazepam (ATIVAN) 0.5 MG tablet [Shashi Ng MD] Preferred pharmacy: [id number] Comment: Medication renewals requested in this message routed to other providers: documented in this encounter Plan of Treatment Not on file documented as of this encounter Visit Diagnoses Not on filedocumented in this encounter Care Teams Steamfitter Relationship Specialty Start Date End Date Shashi Ng MD PCP - General 02/29/08 07/25/14 Scar Otto MD PCP - General Internal Medicine 09/18/14 04/30/15 Daniella Zuleta DO PCP - General Internal Medicine 05/01/15 06/26/15 Aung Thompson MD [address] [place] [address] PCP - General Internal Medicine 06/27/15 05/20/16 Samina Canales MD [address] [place] [address] PCP - General Internal Medicine 05/21/16 10/11/18 Gissell Hernandez MD [address] [place] [address] PCP - General Internal Medicine 10/12/18 08/19/21 Ata Welch MD [address] [place] [address] PCP - General Internal Medicine 08/20/21 05/06/22 Celestine Vargas MD [address] [place] [address] PCP - General Internal Medicine 05/07/22 Iva Garcia PA-C [address] [address] Specialist Neurosurgery 12/05/21 Guido Harper PA-C [address] [id number] Specialist Neurosurgery 01/15/22 May Reynoso MD [address] [address] Surgeon Neurosurgery 03/26/23 documented as of this encounter
--- OUTSIDE RECORDS SUMMARY | 2025-06-04 23:32 | XMS_ITS | Encounter Summary ---
Author Organization [facility] Address [address] [place] [address] Care Team Providers Care Client Service Consultant Name Role Phone Ata Welch MD Primary Care Provider Iva Garcia PA-C Unavailable Guido Harper PA-C Unavailable Celestine Vargas MD Primary Care Provider [phone] May Reynoso MD Unavailable [phone] Encounter Details Date Type Department Care Team Description 04/03/2022 Pt. Non Urgent Medical Question Adult Medicine [facility] [address] [place] [address] [phone] Grace Arnold PA-C [address] [place] [address] [id number] Social History Tobacco Use Types Packs/Day Years [...] suspected to have Coronavirus/COVID-19? No / Unsure 04/03/2022 8:37 AM EDT documented as of this encounter Miscellaneous Notes * Telephone Encounter - Codie Mcfarland M.A. - 04/03/2022 11:02 AM EDTFrom: Deena Walden To: Paige Arnold Sent: 04/03/2022 10:56 AM EDT Subject: Legs Hi this is Deena Iram, I forgot to mention that I have really bad restless legs. I forgot all about mentioning it and it???s been an almost every night thing . documented in this encounter Plan of Treatment Not on file documented as of this encounter Visit Diagnoses Not on filedocumented in this encounter Care Teams Client Service Consultant Relationship Specialty Start Date End Date Ata Welch MD [address] [place] [address] PCP - General Internal Medicine 08/20/21 05/06/22 Celestine Vargas MD [address] [place] [address] PCP - General Internal Medicine 05/07/22 Iva Garcia PA-C [address] [place] [address] Specialist Neurosurgery 12/05/21 Guido Harper PA-C [address] [place] [address] Specialist Neurosurgery 01/15/22 May Reynoso MD [address] [address] Surgeon Neurosurgery 03/26/23 documented as of this encounter
--- OUTSIDE RECORDS SUMMARY | 2025-06-04 23:32 | XMS_ITS | Encounter Summary ---
Author Organization [facility] Address [address] [place] [address] Care Team Providers Care Swimming Pool Cleaner Name Role Phone Shashi Ng MD Primary Care Provider Becky Scar Middleton MD Primary Care Provider Unavail able Daniella Zuleta DO Primary Care Pro vider Unavailable Aung Thompson MD Primary Care Provider [phone] Samina Canales MD Primary Care Provider Unavaila Gissell Abarca MD Primary Care Provider Unavail able Ata Welch MD Primary Care Provider [phone] Iva Garcia PA-C Unavailable [phone] Guido Harper PA-C Unavailable [phone] Celestine Vargas MD Primary Care Provider [phone] May Reynoso MD Unavailable [phone] Reason for Visit * Reason Onset Date Comments Supervisor Finishing Feedback 07/03/2013 Encounter Details Date Type Department Care Team Description 07/03/2013 Telephone Adult Medicine [address] [id number] Shashi Ng MD Supervisor Finishing Feedback Social History Tobacco Use Types Packs/Day Years [...] encounter Miscellaneous Notes * Telephone Encounter - Kristie Brown - 07/03/2013 2:14 PM EST No insurance referral required per patient's insurance. Fax to [phone] Notes, order and xray * Telephone Encounter - Poonam Hickman - 07/03/2013 2:09 PM EST Did you verify this is patients current insurance? YES Payor: [employer] ([employer]) FFS Plan: FFS HMO $0 [employer] [id number] Product Type: MEDICAID RISK Effective 04/25/09: BCBS will not retro referral requests over 90 days. If request is for this please instruct patient to call the 800# on their insurance card to appeal. Do not submit a request. Referrals cannot be processed if the insurance is not accurate. If the insurance listed above in red is NO BILLING INFORMATION FOUND FOR THIS ENCOUTNER The patients correct insurance must be obtained and registered in [facility] or their referral can not be processed. Who is calling to request this referral? Deena Walden (patient) If the caller is not the patient, what is their name? N/A FIRST and LAST NAME of SPECIALIST PATIENT is seeing: Dr. Michael What specialty is this? Orthopedics DIAGNOSIS Patient is being seen for (Not a body part or a procedure): Shoulder Pain does not know diagnosis Have you seen this SPECIALIST for this PROBLEM/DX before?NO If YES, when: Have you checked REVIEW or the APPT DESK to see if this referral has already been done or has visits left? YES Who referred the patient to this specialty? Shashi Ng Is this visit:Initial Visit Address of Specialist: [address] [place] [address] Phone # of Specialist: [phone] Fax #: (if applicable): [phone] Does patient have an appointment scheduled?: YES Date of appointment- (including a retro-request): 07/12/13 Is this appointment related to: Not MVA, WC or Surgery related documented in this encounter Plan of Treatment Not on file documented as of this encounter Visit Diagnoses Not on filedocumented in this encounter Care Teams Swimming Pool Cleaner Relationship Specialty Start Date End Date Shashi Ng MD PCP - General 02/29/08 07/25/14 Scar Otto MD PCP - General Internal Medicine 09/18/14 04/30/15 Daniella Zuleta DO PCP - General Internal Medicine 05/01/15 06/26/15 Aung Thompson MD [address] [place] [address] PCP - General Internal Medicine 06/27/15 05/20/16 Samina Canales MD [address] [place] [address] PCP - General Internal Medicine 05/21/16 10/11/18 Gissell Hernandez MD [address] [place] [address] PCP - General Internal Medicine 10/12/18 08/19/21 Ata Welch MD [address] [place] [address] PCP - General Internal Medicine 08/20/21 05/06/22 Celestine Vargas MD [address] [place] [address] PCP - General Internal Medicine 05/07/22 Iva Garcia PA-C [address] [place] [address] Specialist Neurosurgery 12/05/21 Guido Harper PA-C [address] [address] Specialist Neurosurgery 01/15/22 May Reynoso MD [address] [place] [address] Surgeon Neurosurgery 03/26/23 documented as of this encounter
--- OUTSIDE RECORDS SUMMARY | 2025-06-04 23:32 | XMS_ITS | Encounter Summary ---
Author Organization [facility] Address [address] [place] [address] Care Team Providers Care Production Supv Name Role Phone Shashi Sharma MD Primary Care Provider Becky Scar Middleton MD Primary Care Provider Unavail able Daniella Zuleta DO Primary Care Pro vider Unavailable Aung Thompson MD Primary Care Provider Samina Canales MD Primary Care Provider Unavaila Gissell Abarca MD Primary Care Provider Unavail able Ata Welch MD Primary Care Provider Iva Garcia PA-C Unavailable [phone] Guido Harper PA-C Unavailable [phone] Celestine Vargas MD Primary Care Provider [phone] May Reynoso MD Unavailable [phone] Encounter Details Date Type Department Care Team Description 05/03/2013 Trauma Nurse Report Medical Records [address] [place] [address] Elodia Daniel [address] [place] [address] Social History Tobacco Use Types Packs/Day Years [...] on filedocumented in this encounter Care Teams Production Supv Relationship Specialty Start Date End Date Shashi Sharma MD PCP - General 02/29/08 07/25/14 Scar Otto MD PCP - General Internal Medicine 09/18/14 04/30/15 Daniella Zuleta DO PCP - General Internal Medicine 05/01/15 06/26/15 Aung Thompson MD [address] [place] [address] PCP - General Internal Medicine 06/27/15 05/20/16 Samina Canales MD [address] [place] [address] PCP - General Internal Medicine 05/21/16 10/11/18 Gissell Hernandez MD [address] [place] [address] PCP - General Internal Medicine 10/12/18 08/19/21 Ata Welch MD [address] [place] [address] PCP - General Internal Medicine 08/20/21 05/06/22 Celestine Vargas MD [address] [place] [address] PCP - General Internal Medicine 05/07/22 Iva Garcia PA-C [address] [place] [address] Specialist Neurosurgery 12/05/21 Guido Harper PA-C [address] [place] [address] Specialist Neurosurgery 01/15/22 May Reynoso MD [address] [address] Surgeon Neurosurgery 03/26/23 documented as of this encounter
--- OUTSIDE RECORDS SUMMARY | 2025-06-04 23:32 | XMS_ITS | Clinical Summary ---
Author Organization [facility] Address [address] [place] [address] Care Team Providers Care Target Developer Name Role Phone Leonardo Honeycutt Primary Care Provider [phone] Allergies No known active allergies Encounters Date Type Department Care Team Description 03/17/2025 8:23 PM EDT - 03/18/2025 2:30 AM EDT Emergency [facility] Emergency Department [address] [place] [address] Viktor Stiles MD Carey, Christopher W, MD [...] Required) Completed Insurance MEDICAID OUT OF STATE [facility] [place] Care Teams Target Developer Relationship Specialty Start Date End Date Leonardo Honeycutt [facility] [address] [place] [address] PCP - General
--- OUTSIDE RECORDS SUMMARY | 2025-06-04 23:32 | XMS_ITS | Encounter Summary ---
Author Organization [facility] Address [address] [place] [address] Care Team Providers Care Service Cashier Name Role Phone Samina Canales MD Primary Care Provider Unavaila Gissell Abarca MD Primary Care Provider Unavail able Ata Welch MD Primary Care Provider [phone] Iva Garcia PA-C Unavailable Guido Harper PA-C Unavailable [phone] Celestine Vargas MD Primary Care Provider [phone] May Reynoso MD Unavailable [phone] Encounter Details Date Type Department Care Team Description 06/11/2016 Pt. Non Urgent Medic al Question Adult Medicine - [address] [address] Jose Winter PA-C Social History Tobacco Use Types Packs/Day [...] on file documented as of this encounter Progress Notes * Elvia Ferraro L.P.N. - 06/11/2016 3:33 PM ESTFrom: Deena Iram To: Jose Winter PA-C Sent: 06/11/2016 3:30 PM EST Subject: zoloft A couple weeks ago i was prescribed zoloft 50mg. I am having side effects and so I stopped taking it and my next appointment with Dr Winter isn't for another couple weeks. documented in this encounter Plan of Treatment Not on file documented as of this encounter Visit Diagnoses Not on filedocumented in this encounter Care Teams Service Cashier Relationship Specialty Start Date End Date Samina Canales MD PCP - General Internal Medicine 05/21/16 10/11/18 Gissell Hernandez MD PCP - General Internal Medicine 10/12/18 08/19/21 Ata Welch MD [address] [place] [address] PCP - General Internal Medicine 08/20/21 05/06/22 Celestine Vagras MD [address] [place] [address] PCP - General Internal Medicine 05/07/22 Iva Garcia PA-C [address] [place] [address] Specialist Neurosurgery 12/05/21 Guido Harper PA-C [address] [place] [address] Specialist Neurosurgery 01/15/22 May Reynoso MD [address] [place] [address] Surgeon Neurosurgery 03/26/23 documented as of this encounter
--- OUTSIDE RECORDS SUMMARY | 2025-06-04 23:32 | XMS_ITS | Encounter Summary ---
Author Organization [facility] Address [address] [place] [address] Care Team Providers Care Road Test Examiner Name Role Phone Aung Thompson MD Primary Care Provider Samina Canales MD Primary Care Provider Unavaila Gissell Abarca MD Primary Care Provider Unavail able Ata Welch MD Primary Care Provider Iva Garcia PA-C Unavailable Guido Harper PA-C Unavailable Celestine Vargas MD Primary Care Provider [phone] May Reynoso MD Unavailable [phone] Reason for Visit * Reason Onset Date Comments 08/22/2015 Encounter Details Date Type Department Care Team Description 08/22/2015 [facility] [address] [address] Ava Marvin, [facility] [address] [place] [address] Social History Tobacco Use Types Packs/Day Years [...] encounter Miscellaneous Notes * Telephone Encounter - Rosana Bateman L.P.N. - 08/22/2015 1:39 PM EST Spoke with pt Gave her advice She will come in tomorrow to do 1 hr glucose and iron test And brick picker printed information... Please sign rx for PNV (can't close encounter until you do ) * Telephone Encounter - Elodia Alcantara CNM - 08/22/2015 1:32 PM EST OKay sometimes restless leg syndrome is worse in because of anemia. Pt needs to do the labs ordered on 08/05/15 We may be able to resolve this with some Fe supplementation. None of the other drug are okay in . Mail her the pt info sheet I am going to bring you now * Telephone Encounter - Rosana Bateman L.P.N. - 08/22/2015 12:52 PM EST Message rerouted to [facility] * Telephone Encounter - Daniela Reese - 08/22/2015 12:22 PM EST Patient called back again, very upset that nobody has called her - gave her the message below that nurse is waiting on provider response and she will be contacted then. Patient upset and swearing on phone then hung up on me. Please call her as soon as possible with plan * Telephone Encounter - Rosana Bateman L.P.N. - 08/22/2015 11:19 AM EST pts message was sent to [facility] Bit appears it has not been addressed yet Pt will be contacted when it is ... * Telephone Encounter - Daniela Reese - 08/22/2015 11:15 AM EST Patient called back to see if nurse had spoken to provider yet regarding her restless leg syndrome * Telephone Encounter - Rosana Bateman L.P.N. - 08/22/2015 9:37 AM EST Please auth rx for prenatals- Pt c/o of restless leg syndrone very bad Says her legs are moving allnight She cannot sleep Has tried benadryl to help her sleep It has not6 helped.. She says she had this with her last preg But no where near as bad- she says with the last preg she was sent to chiro- it did nothing And she will not go back and waste her time or the chiropractors... (the only notation I see in previous episode is 03/20/13 it mentions legs hurt all the time and chiro does not help.... Routed to [facility] for advice/ suggestions And auth of rx * Telephone Encounter - Daniela Reese - 08/22/2015 8:51 AM EST Chief Complaint/problem: Patient is 28 weeks having trouble sleeping at night - pt has restless leg syndrome, would like to speak to nurse. Also she was taking [place] vitamins and they are now getting expensive and would like to know if she could get a script sent to pharmacy for pre vitamins How long has the patient had this problem? - Pt???s COVER OPERATOR provider: Ava Marvin CNM Last menstrual period (LMP) or EDC (due date): N/A documented in this encounter Plan of Treatment Not on file documented as of this encounter Visit Diagnoses Not on filedocumented in this encounter Care Teams Road Test Examiner Relationship Specialty Start Date End Date Aung Thompson MD [address] [place] [address] PCP - General Internal Medicine 06/27/15 05/20/16 Samina Canales MD [address] [place] [address] PCP - General Internal Medicine 05/21/16 10/11/18 Gissell Hernandez MD [address] [place] [address] PCP - General Internal Medicine 10/12/18 08/19/21 Ata Welch MD [address] [place] [address] PCP - General Internal Medicine 08/20/21 05/06/22 Celestine Vargas MD [address] [place] [address] PCP - General Internal Medicine 05/07/22 Iva Garcia PA-C [address] [address] Specialist Neurosurgery 12/05/21 Guido Harper PA-C [address] [address] Specialist Neurosurgery 01/15/22 May Reynoso MD [address] [address] Surgeon Neurosurgery 03/26/23 documented as of this encounter
--- OUTSIDE RECORDS SUMMARY | 2025-06-04 23:32 | XMS_ITS | Encounter Summary ---
Author Organization [facility] Address [address] [place] [address] Care Team Providers Care Plate Glass Polisher Name Role Phone Iva Garcia PA-C Unavailable [phone] Guido Harper PA-C Unavailable [phone] Celestine Vargas MD Primary Care Provider [phone] May Reynoso MD Unavailable [phone] Reason for Visit * Reason Comments E-prescribe Rx Request Encounter Details Date Type Department Care Team Description 11/29/2023 Refill Pulmonology - [facility] 175 [facility] [address] [place] [phone] Althea Norwood APRN 175 [facility] [address] [place] [phone] E-prescribe Rx Request Social History Tobacco Use [...] encounter Miscellaneous Notes * Telephone Encounter - Nighat Thayer - 11/29/2023 8:26 AM EDT Edgardo: 09/14/2023 Nov: 03/14/2024 documented in this encounter Plan of Treatment Not on file documented as of this encounter Visit Diagnoses Diagnosis Allergic rhinitis, unspecified seasonality, unspecified trigger documented in this encounter Care Teams Plate Glass Polisher Relationship Specialty Start Date End Date Celestine Vargas MD [address] [place] [address] PCP - General Internal Medicine 05/07/22 Iva Garcia PA-C [address] [address] Specialist Neurosurgery 12/05/21 Guido Harper PA-C [address] [address] Specialist Neurosurgery 01/15/22 May Reynoso MD [address] [address] Surgeon Neurosurgery 03/26/23 documented as of this encounter
--- OUTSIDE RECORDS SUMMARY | 2025-06-04 23:32 | XMS_ITS | Encounter Summary ---
Author Organization [facility] Address [address] [place] [address] Care Team Providers Care Circus Trainer Name Role Phone Iva Garcia PA-C Unavailable [phone] Guido Harper PA-C Unavailable Celestine Vargas MD Primary Care Provider May Reynoso MD Unavailable [phone] Encounter Details Date Type Department Care Team Description 07/16/2022 Telephone Gastroenterology - [address] [place] [address] Vanita Chen MD [address] [place] [address] Social History Tobacco Use Types Packs/Day Years [...] suspected to have Coronavirus/COVID-19? No / Unsure 07/10/2022 8:54 AM EST documented as of this encounter Miscellaneous Notes * Telephone Encounter - Geovanny Rowley - 07/16/2022 7:39 AM EST I have been unable to reach this patient by phone to schedule an appointment in GI. A letter is being sent. documented in this encounter Plan of Treatment Not on file documented as of this encounter Visit Diagnoses Not on filedocumented in this encounter Care Teams Circus Trainer Relationship Specialty Start Date End Date Celestine Vargas MD [address] [place] [address] PCP - General Internal Medicine 05/07/22 Iva Garcia PA-C [address] [address] Specialist Neurosurgery 12/05/21 Guido Harper PA-C [address] [address] Specialist Neurosurgery 01/15/22 May Reynoso MD [address] [address] Surgeon Neurosurgery 03/26/23 documented as of this encounter
--- OUTSIDE RECORDS SUMMARY | 2025-06-04 23:32 | XMS_ITS | Encounter Summary ---
Author Organization [facility] Address [address] [place] [address] Care Team Providers Care Supervisor Policy Change Clerks Name Role Phone Ata Welch MD Primary Care Provider Iva Garcia PA-C Unavailable [phone] Guido Harper PA-C Unavailable [phone] Celestine Vargas MD Primary Care Provider [phone] May Reynoso MD Unavailable [phone] Encounter Details Date Type Department Care Team Description 01/14/2022 Pt. Non Urgent Medic al Question Adult Medicine [address] [phone] Cinthia Tracy PA Social History Tobacco Use [...] suspected to have Coronavirus/COVID-19? No / Unsure 01/15/2022 2:57 PM EDT documented as of this encounter Plan of Treatment Not on file documented as of this encounter Visit Diagnoses Not on filedocumented in this encounter Care Teams Supervisor Policy Change Clerks Relationship Specialty Start Date End Date Ata Welch MD [address] [place] [address] PCP - General Internal Medicine 08/20/21 05/06/22 Celestine Vargas MD [address] [place] [address] PCP - General Internal Medicine 05/07/22 Iva Garcia PA-C [address] [address] Specialist Neurosurgery 12/05/21 Guido Harper PA-C [address] [address] Specialist Neurosurgery 01/15/22 May Reynoso MD [address] [address] Surgeon Neurosurgery 03/26/23 documented as of this encounter
--- OUTSIDE RECORDS SUMMARY | 2025-06-04 23:32 | XMS_ITS | Encounter Summary ---
Author Organization [facility] Address [address] [place] [address] Care Team Providers Care Nurse Supervisor Name Role Phone Iva Garcia PA-C Unavailable [phone] Guido Harper PA-C Unavailable [phone] Celestine Vargas MD Primary Care Provider [phone] May Reynoso MD Unavailable [phone] Encounter Details Date Type Department Care Team Description 05/24/2023 Orders Only Medical Records [address] [place] [address] Vanita Chen MD [address] [place] [address] Social History Tobacco Use Types Packs/Day Years [...] suspected to have Coronavirus/COVID-19? No / Unsure 05/21/2023 9:18 AM EDT documented as of this encounter Progress Notes * Starr Chen MD - 06/09/2023 12:44 PM EST Dear Deena, The polyp(s) that were removed during your colonoscopy were precancerous, but benign. Fortunately, we removed them and therefore, they will not cause any more problems in the future. Based on the number, the size, and the features of the polyp(s) removed, I recommend a follow-up colonoscopy in 3 years. Before, the 3 years are due, we will send you a reminder in the mail asking you to contact our office to have the colonoscopy scheduled. I would like to personally thank you for allowing us to take care of you. Please don't hesitate to call us for any questions or concerns. Regards, Carmen Chen MD Board Certified Gastroenterology and Internal Medicine Transplant Hepatology [facility] documented in this encounter Plan of Treatment Not on file documented as of this encounter Procedures Procedure Name Priority Date/Time Associated Diagnosis Comments OUTSIDE COLONOSCOPY Routine 05/20/2023 OUTSIDE PATHOLOGY Routine 05/20/2023 documented in this encounter Results * OUTSIDE COLONOSCOPY (05/20/2023) Vanita Chen MD RADIOLOGY * OUTSIDE PATHOLOGY (05/20/2023) Vanita Chen MD OUTSIDE LAB documented in this encounter Visit Diagnoses Not on filedocumented in this encounter Care Teams Nurse Supervisor Relationship Specialty Start Date End Date Celestine Vargas MD [address] [place] [address] PCP - General Internal Medicine 05/07/22 Iva Garcia PA-C [address] [address] Specialist Neurosurgery 12/05/21 Guido Harper PA-C [address] [address] Specialist Neurosurgery 01/15/22 May Reynoso MD [address] [address] Surgeon Neurosurgery 03/26/23 documented as of this encounter
--- OUTSIDE RECORDS SUMMARY | 2025-06-04 23:32 | XMS_ITS | Encounter Summary ---
Author Organization [facility] Address [address] [place] [address] Care Team Providers Care Conveyor Worker Name Role Phone Ata Welch MD Primary Care Provider [phone] Iva Garcia PA-C Unavailable [phone] Guido Harper PA-C Unavailable Celestine Vargas MD Primary Care Provider [phone] May Reynoso MD Unavailable [phone] Reason for Visit * Reason Onset Date Comments Surgery (Schedule) 10/14/2021 Encounter Details Date Type Department Care Team Description 10/14/2021 Telephone [facility] [place] [address] [place] [address] Bipin Lu MD, PHD Surgery (Schedule) Social History Tobacco Use Types Packs/Day Years [...] encounter Miscellaneous Notes * Telephone Encounter - Irene Wilkins - 10/14/2021 2:45 PM EDT Patient left message with answering serive regarding status of surgery date. Please call [phone] documented in this encounter Plan of Treatment Not on file documented as of this encounter Visit Diagnoses Not on filedocumented in this encounter Care Teams Conveyor Worker Relationship Specialty Start Date End Date Ata Welch MD [address] [place] [address] PCP - General Internal Medicine 08/20/21 05/06/22 Celestine Vargas MD [address] [place] [address] PCP - General Internal Medicine 05/07/22 Iva Garcia PA-C [address] [address] Specialist Neurosurgery 12/05/21 Guido Harper PA-C [address] [address] Specialist Neurosurgery 01/15/22 May Reynoso MD [address] [address] Surgeon Neurosurgery 03/26/23 documented as of this encounter
--- OUTSIDE RECORDS SUMMARY | 2025-06-04 23:32 | XMS_ITS | Encounter Summary ---
Author Organization [facility] Address [address] [place] [address] Care Team Providers Care Enrollment Services Dean Name Role Phone Ata Welch MD Primary Care Provider Iva Garcia PA-C Unavailable Guido Harper PA-C Unavailable Celestine Vargas MD Primary Care Provider [phone] May Reynoso MD Unavailable [phone] Encounter Details Date Type Department Care Team Description 11/17/2021 [facility] Neurosurgery [place] [address] [phone] Bipin Lu MD, PHD Social History Tobacco Use Types Packs/Day Years [...] on filedocumented in this encounter Care Teams Enrollment Services Dean Relationship Specialty Start Date End Date Ata Welch MD [address] [place] [address] PCP - General Internal Medicine 08/20/21 05/06/22 Celestine Vargas MD [address] [place] [address] PCP - General Internal Medicine 05/07/22 Iva Garcia PA-C [address] [address] Specialist Neurosurgery 12/05/21 Guido Harper PA-C [address] [address] Specialist Neurosurgery 01/15/22 May Reynoso MD [address] [address] Surgeon Neurosurgery 03/26/23 documented as of this encounter
--- OUTSIDE RECORDS SUMMARY | 2025-06-04 23:32 | XMS_ITS | Clinical Summary ---
Author Organization [facility] [address] [place] [address] Address [address] [place] [address] Phone Care Team Providers Care Keypuncher Name Role Phone Celestine Vargas MD Primary [...] months. Obstructive sleep apnea 11/06/2021 Overview (08/02/2024): [facility] Home sleep test 11/03/2021; weight 180; [...] older (Afluria) 3 years and older 05/15/2013,05/11/2012,05/18/2011,05/19,04/10/2009,06/08/2008 [employer] SARS-CoV-2 COVID-19, mRNA, LNP-S, preservative free 05/05/2021 Pneumococcal polysaccharide 23 valent (Pneumovax 23) 2yo and older 04/11/2020 Tdap Tetanus diptheria acell ular pertussis (Boostrix; Adacel) 7yo and older 10/17/2015,05/15/2013,03/12/2010 Surgical History Surgery Date Site/Laterality Comments COLPOSCOPY PROCEDURE: IA COLPOSCOPY ENTIRE VAGINA W/CERVIX IF PRESENT; COMMENT: ? LEEP OTHER SURGICAL HISTORY 11/14/2021 PROCEDURE: IA ARTHRD ANT INTERBODY MIN DSC CRV BELOW [...] for your loved ones. For example, child nutrition manager or elderly care for an older adult? [...] cancer risk category Low (<15%) Location: [facility], [address] [place] [address], [address], [phone] Procedure Note Mariela Melendez MD - 06/19/2024 [...] cancer risk category Low (<15%) Location: [facility], [address] [place] [address], [address], [phone] Talya Mazariegos MD IMG XR PROCEDURES Final Res ult * Cervical Cancer Screening: HPV (12/23/2022) [facility]ologist [facility] Cervical Cancer Screening: HPV Negative, Abstracted [facility] Provider HEALTH MAINTENANCE Final Result * HIV Screening (07/10/2022) [facility] HIV Screening Abstracted [facility] Provider HEALTH MAINTENANCE Final Result * Hepatitis C Screening (07/10/2022) Pathologist [facility] Hepatitis C Screening Abstracted [facility] Provider HEALTH MAINTENANCE Final Result * (ABNORMAL) Lipid panel (04/03/2022) Pathologist [facility] LDL/HDL Ratio 5(A) 0 - 4 Triglycerides 239(A) 0 - 150 mg/dL Cholesterol 285(A) 0 - 200 mg/dL HDL 56 >=40 mg/dL LDL Cholesterol 182(A) 0 - 100 mg/dL Blood Venous blood specimen / Unknown Result [facility] Historical Provider LAB BLOOD ORDERABLES Arleen l Result from Last 3 Months or Most Recently Relevant to Health Maintenance Insurance [facility] Care Teams Keypuncher Relationship Specialty Start Date End Date Celestine Vargas MD [address] [place] [address] PCP - General Internal Medicine 05/07/22
--- OUTSIDE RECORDS SUMMARY | 2025-06-04 23:32 | XMS_ITS | Encounter Summary ---
Author Organization [facility] Address [address] [place] [address] Care Team Providers Care Review Coordinator Name Role Phone Gissell Hernandez MD Primary Care Provider Unavail Ata Mares MD Primary Care Provider Iva Garcia PA-C Unavailable Guido Harper PA-C Unavailable Celestine Vargas MD Primary Care Provider [phone] May Reynoso MD Unavailable [phone] Reason for Visit * Reason Onset Date Comments refill request 04/01/2021 Encounter Details Date Type Department Care Team Description 04/01/2021 Refill Allergy [place] [address] [place] [id number] Althea Norwood APRN 175 [facility] [address] [place] [address] refill request Social History Tobacco Use Types Packs/Day Years Used Date Smoking Tobacco: Former Cigarettes 0.5 Smokeless Tobacco: Never Alcohol Use Standard Drinks/Week Comments No 0 (1 standard drink = 0.6 oz pur e alcohol) Sex Assigned at Date Recorded Not on file Job Start Date Occupation Industry Not on file Not on file Not on file COVID-19 Exposure Response Date Recorded In the last month, have you been in contact with someone who was confirmed or suspected to have Coronavirus / COVID-19? No / Unsure 04/04/2021 10:16 AM EDT documented as of this encounter Miscellaneous Notes * Telephone Encounter - Cassie Phelps - 04/01/2021 8:52 AM EDT MAXINE .12.21 NOV n/a documented in this encounter Plan of Treatment Not on file documented as of this encounter Visit Diagnoses Not on filedocumented in this encounter Care Teams Review Coordinator Relationship Specialty Start Date End Date Gissell Hernandez MD PCP - General Internal Medicine 10/12/18 08/19/21 Ata Welch MD [address] [place] [address] PCP - General Internal Medicine 08/20/21 05/06/22 Celestine Vargas MD [address] [place] [address] PCP - General Internal Medicine 05/07/22 Iva Garcia PA-C [address] [place] [address] Specialist Neurosurgery 12/05/21 Guido Harper PA-C [address] [address] Specialist Neurosurgery 01/15/22 May Reynoso MD [address] [address] Surgeon Neurosurgery 03/26/23 documented as of this encounter
--- OUTSIDE RECORDS SUMMARY | 2025-06-04 23:32 | XMS_ITS | Encounter Summary ---
Author Organization [facility] Address [address] [place] [address] Care Team Providers Care Risk Tech Name Role Phone Iva Garcia PA-C Unavailable [phone] Guido Harper PA-C Unavailable Celestine Vargas MD Primary Care Provider [phone] May Reynoso MD Unavailable [phone] Encounter Details Date Type Department Care Team Description 05/24/2023 Pt. Non Urgent Medical Question Adult Medicine [address] [address] Celestine Vargas MD [address] [place] [address] Social History Tobacco Use Types Packs/Day Years [...] In the last 10 days, have yo cresencio been in contact with someone who was confirmed or suspected to have Coronavirus/COVID-19? No / Unsure 05/21/2023 9:18 AM EDT documented as of this encounter Miscellaneous Notes * Telephone Encounter - Demetria Denise M.A. - 05/24/2023 9:49 AM EDTFrom: Deena Walden To: Velma Vargas Sent: 05/24/2023 9:46 AM EDT Subject: Colonoscopy reaults I received an email stating I had results from my colonoscopy. When I went and clicked on the message for the results and test results itself, they are both empty. documented in this encounter Plan of Treatment Not on file documented as of this encounter Visit Diagnoses Not on filedocumented in this encounter Care Teams Risk Tech Relationship Specialty Start Date End Date Celestine Vargas MD [address] [place] [address] PCP - General Internal Medicine 05/07/22 Iva Garcia PA-C [address] [address] Specialist Neurosurgery 12/05/21 Guido Harper PA-C [address] [address] Specialist Neurosurgery 01/15/22 May Reynoso MD [address] [address] Surgeon Neurosurgery 03/26/23 documented as of this encounter
--- NOTE | 2025-06-05 00:13 | ED_ITS ---
HPI - Extremity Problem General Chief complaint: Extremity Injury, Upper Stated complaint: knuckle swelling Time Seen by Provider: 06/04/25 23:49 Source: patient Mode of arrival: ambulatory Limitations: no limitations History of Present Illness ED Provider: Alexx Saul HPI Narrative: 45 yold female presents to the ED for right index knuckle since punching the window with her right hand since last wednesday. patient states no fever, chills, rash, pus discharge, open wounds, weakness, or dizzines. patient any IV drug use or insect bite. Related Data Home Medications ?Medication ?Instructions ?Recorded ?Confirmed lorazepam 0.5 mg tablet 0.5 mg PO DAILY PRN anxiety attack 11/13/24 11/13/24 trazodone 50 mg tablet 50 - 100 mg PO BEDTIME PRN i nsomnia 11/13/24 11/13/24 vilazodone 10 mg tablet (Viibryd) 10 mg PO DAILY 11/1311/13/24 Previous Rx's ?Medication ?Instructions ?Recorded cephalexin 500 mg capsule 500 mg PO Q12H #13 caps 11/24 12/17 phenazopyridine 200 mg tablet 200 mg PO TID PRN pain # 9 tabs 12/17/24 (Pyridium) acetaminophen 325 mg tablet 325 mg PO QID PRN pain #28 tabs 06/05/25 (Tylenol) prednisone 20 mg tablet 40 mg (2 x 20 mg) PO DAILY 5 days 06/05/25 #10 tabs Allergies Allergy/AdvReac Type Severity Reaction Status Date / Time Sulfa (Sulfonamide Allergy Mild ITCHING Verified 06/04/25 22:53 Antibiotics) (SULFA(SULFONAMIDE ANTIBIOTICS)) naproxen (NAPROXEN) AdvReac Unknown NAUSEA Verified 06/04/25 22:53 Review of Systems 2 Review of Systems: right index knuckle pain Yes all other systems are reviewed and are negative PMFSH Past Medical History Medical History Anxiety Depression Asthma Social History Social History Alcohol intake: current Alcohol intake frequency: 3 or more drinks per day Alcohol type: beer and hard liquor Advance Directives: No Advance Directives Information Provided: Yes Do you have a plan to hurt others: No Plan Physical Exam 2 Vital Signs: Vital Signs: Last Vital Signs Temp 98.2 F 06/05/25 01:00 Pulse 73 06/05/25 01:00 Resp 16 06/05/25 01:00 BP 136/85 06/05/25 01:00 Pulse Ox 95 06/05/25 01:00 O2 Del Method Room Air 06/05/25 01:00 BMI result Body Mass Index 27.9 Const: General: cooperative, healthy appearing, comfortable, no acute distress, well developed, alert and awake Orientation/consciousness: patient oriented x3 HEENT: Head: Yes normal to inspection, Yes No palpable skull fracture present, Yes normocephalic and Yes atraumatic Ears: hearing grossly normal bilaterally, external ears normal, TM's normal bilaterally, TM normal on the right, TM normal on the left, EAC's normal, mastoids normal and no periauricular adenopathy Throat: Yes posterior oropharynx normal, Yes tonsils normal and Yes uvula midline Eyes: General: appearance normal, both eyes and all related structures Neck: Neck: Yes normal visual inspection, Yes full ROM, Yes no lymphadenopathy, Yes no meningeal signs, Yes trachea midline, Yes supple, No anterior neck swelling and No tender Chest: Chest palpation & inspection: normal inspection of the chest and normal palpation of entire chest wall Resp: Effort & Inspection: normal respiratory effort and able to speak in complete sentences Auscultation: clear to auscultation bilaterally Cardio: Jugular venous distension: no JVD Heart sounds: S1 normal heart sound present and S2 normal heart sound present GI: Inspection: Yes normal to inspection Palpation (GI): Soft to palpation, not firm, nontender, no guarding and not rigid : General: Yes no CVA tenderness Back/Spine/Pelvis: Back: no CVA tenderness and No back tenderness Skin: General skin exam: no rashes or lesions noted, elasticity normal and turgor normal Neuro: General: patient oriented x3, gait normal, tone normal, moves all extremities, Normal light touch and pain sensation, no meningeal signs, no focal motor deficits, CN's II-XI intact bilaterally and normal sensation to monofilament Extrem: General: Yes normal to inspection and Yes full ROM Hand/finger images: 1. positive for ecchymosis and tenderness on palpation. negative for warmth, pus discharge, foul odor, lesions, or open wounds. Patient has difficulty moving index finger. Rest of extremity normal. Vascular motor neuro exam intact Psych: Appearance: grossly normal, well kempt and not disheveled Medications Administered Discontinued Medications Generic Name Dose Route Start Last Admin Trade Name Phani PRN Reason Stop Dose Admin Acetaminophen 975 mg 06/05/25 00:04 06/05/25 00:21 Acetaminophen 325 Mg Tablet PO 06/05/25 00:05 975 mg ONCE ONE Administration Prednisone 40 mg 06/05/25 00:04 06/05/25 00:21 Prednisone 20 Mg Tablet PO 06/05/25 00:05 40 mg ONCE ONE Administration Medical Decision Making Medical Decision Making MDM Narrative: [age] year female presents to ED for right index knuckle pain since Wednesday after punching the window. X-ray negative for fracture. History physical exam negative for signs of DVT, cellulitis, compartment syndrome, arterial occlusion, necrotizing fasciitis, gout, herpetic lesion, or any life- threatening etiology. Possible tendon injury. Patient informed to follow-up with hand surgeon. Differential Diagnosis Differential Diagnoses: The differential diagnosis associated with the presentation includes (fracture, dislocation, contusion) Admission/Observation Consideration of admission/observation: Escalation of care including admission/observation considered Independent Interpretation I performed an independent interpretation of an: Plain X-Ray Radiology Impression Discussion of test interpretation with radiology: I have reviewed the radiologist's reading. Independent Historian Clinical information obtained from an independent historian. History obtained from or confirmed by: Other (patient) Prescription Management I considered prescription management with: Pain Medication Discharge Plan Discharge Clinical Impression: Contusion Patient Disposition: Home, Self-Care Instructions: Warm Compress or Soak (ED), Cold Compress or Soak (ED), Bone Bruise (ED) Additional Instructions: Recommend follow-up with primary care provider and hand surgeon. You will need a hand surgeon for possible evaluation of tendon injury. Return to the ED for any worsening pain, swelling, redness, bluish black discoloration, stiffness, fever, chills, or any other concerning symptoms. Ordering Physician: Generic ED Physician Date of Service: 06/04/25 Procedure(s): XR hand RT min 3V Accession Number(s): [id number] cc: Generic ED Physician; Physician,Unknown ~ Reason for Exam: pain/swelling index R hand CLINICAL HISTORY: pain swelling index R hand 3 view right hand Comparison: CR - XR HAND RT MIN 3V - 11/13/24 12:09 EDT Findings: Bones intact. No dislocations. No significant loss of joint space or osteophytes. No erosions. No radiopaque foreign body. IMPRESSION: 1. No acute findings This document has been electronically signed by: Desmond Merritt MD on 06/04/2025 23:24:20 Prescriptions: New prednisone 20 mg tablet 40 mg PO DAILY 5 Days Qty: 10 0RF acetaminophen [Tylenol] 325 mg tablet 325 mg PO QID PRN (Reason: pain) Qty: 28 0RF No Action cephalexin 500 mg capsule 500 mg PO Q12H Qty: 13 0RF phenazopyridine [Pyridium] 200 mg tablet 200 mg PO TID PRN (Reason: pain) Qty: 9 0RF trazodone 50 mg tablet 50 - 100 mg PO BEDTIME PRN (Reason: insomnia) vilazodone [Viibryd] 10 mg tablet 10 mg PO DAILY lorazepam 0.5 mg tablet 0.5 mg PO DAILY PRN (Reason: anxiety attack) [place] [facility] [place] [facility] [place]Provider Group, Hand Surgery] - 2 days Referral Note: Right index contusion possible tendon injury Clinical Impression: Contusion Stand Alone Forms: Work/School Release Interventions: ED Discharge Assessment Last Done: 06/05/25 01:00 Discharge Date/Time: 06/05/25 01:01 Print Language: Paraguayan
[2025-06-05 01:00] VITALS: BP 136/85; PULSE 73; RESP 16; TEMP 36.8; O2SAT 95
== END 2025-06-05 01:01 | disposition home or self-care (01) ==
PROVIDERS: Emergency Provider Emergency Medicine; PCP Internal Medicine
DX: S60.221A Contusion of right hand, initial encounter (principal); W22.09XA Striking against other stationary object, initial encounter; Y93.9 Activity, unspecified; Y92.9 Unspecified place or not applicable; Y99.9 Unspecified external cause status
CPT/HCPCS: 73130; 99283

== ENCOUNTER → 2025-06-04 23:00 | Outpatient (BNV) | payer OTHER, SELFPAY | PROVIDERS: Emergency Provider Emergency Medicine; PCP Internal Medicine; Visit Provider Radiology Diagnostic Radiology | DX: R22.31 Localized swelling, mass and lump, right upper limb (principal); M79.644 Pain in right finger(s) | CPT/HCPCS: 73130 ==

== ENCOUNTER 2025-06-11 13:08 | Outpatient (REF) | payer OTHER, SELFPAY ==
--- NOTE | ~2025-06-11 | XR_ITS ---
EXAMINATION: XR HAND, RIGHT CLINICAL INFORMATION: M79.641 - Pain in right hand COMPARISON: X-ray 06/04/2025 TECHNIQUE: PA, lateral, and oblique views of the right hand. FINDINGS: No visible acute fracture or dislocation. Alignment is anatomic. Ulnar negative variance. No significant joint space narrowing or osteophytes. No evidence of erosions. No radiopaque foreign body. No abnormal soft tissue calcification. XR/XR hand RT min 3V IMPRESSION: No acute findings Electronically signed by: Wei Pope MD 06/12/2025 09:39 AM EST
== END 2025-06-11 13:09 | disposition home or self-care (01) ==
LOC: HO.HOSX 13:08
DX: S63.610A Unspecified sprain of right index finger, initial encounter (principal)
CPT/HCPCS: 73130

== ENCOUNTER 2025-06-11 13:52 | Outpatient (AMB) | payer OTHER, SELFPAY ==
[2025-06-11 14:08] VITALS: BMI 27.8
--- NOTE | 2025-06-11 14:08 | MHC.OFFVIS ---
Vital Signs 06/11/25 14:08 Height 5 ft 1 in Weight 147 lb BMI 27.8 Intake Visit Reasons: ED: RT IF Contusion, ? Tendon Injury, DOI: 05/30/25 Intake Note: Deena is a 45 year old right hand dominant female, new patient, who presents today for an ED Follow Up to evaluate a Right Index Finger Contusion & Possible Tendon Injury, DOI: 05/30/25. [place] [facility] [place] complaining of right index knuckle pain after punching a window. At the ED, she was advised to do warm/cold compresses or soaks. Today, patient complains of pain and numbness on the radial aspect of the right index finger radiating to the DIP and all around her knuckle. She is concerned as her finger has been overlapping since the injury. She complains of weakness. Patient has tried Tylenol without relief. She get some relief with ice. 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 Patient denies any previous injuries or surgeries to the right had. Allergies Sulfa (Sulfonamide Antibiotics) (SULFA(SULFONAMIDE ANTIBIOTICS)) Allergy (Mild, Verified 06/11/25 14:10) ITCHING naproxen (NAPROXEN) Adverse Reaction (Unknown, Verified 06/11/25 14:10) NAUSEA HPI HPI ED: RT IF Contusion, ? Tendon Injury, DOI: 05/30/25: Details: Deena is a 45 year old right hand dominant female, new patient, who presents today for an ED Follow Up to evaluate a Right Index Finger Contusion & Possible Tendon Injury, DOI: 05/30/25. Patient [place] [facility] [place] 06[place]05[place]25 complaining of right index knuckle pain after punching a window. At the ED, she was advised to do warm/cold compresses or soaks. Today, patient complains of pain and numbness on the radial aspect of the right index finger radiating to the DIP and all around her knuckle. Pain is worst around the MCP joint, primarily in the radial aspect. She is concerned as her finger has been overlapping since the injury. She complains of weakness. Patient has tried Tylenol without relief. She get some relief with ice. 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 Patient denies any previous injuries or surgeries to the right had. 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 Neuro: Normal sensation of the tips of all digits of the right hand at this time Vascular: Cap refill brisk Pain: Tenderness to palpation of the radial aspect of the right index finger MCP joint Pain with all range of motion of the right index finger ROM: Patient is able to flex and extend all digits of the right hand, flexion of the right index finger limited, however patient is able to flex and extend at all joints of the right hand Skin: No lacerations or abrasions. General: Significant ligamentous laxity with ulnar deviation of the right index finger at the MCP joint No ecchymosis, erythema, or evidence of infection. Psych: Appears grossly normal Affect normal Attitude cooperative Results Reviewed Results Reviewed: X-rays obtained in the office today and independently reviewed by me, Cristobal Jeffers PA-C, demonstrate no fracture or acute bony abnormality of the right hand. Assessment & Plan Assessment & Plan (1) Sprain of right index finger: Code(s): S63.610A - Unspecified sprain of right index finger, initial encounter Category: Medical Plan 1. Possible RCL tear of right index finger MCP joint Date of injury 06/04/2025 Patient is educated about this condition Patient is educated about the typical treatment course At this time, urgent MRI is ordered to assess the health of the soft tissue structures of the right hand, particularly the index finger, and given ligamentous laxity I am concerned for RCL tear of the right index finger MCP joint After MRI, patient will follow-up with Dr. Maya for results review and discussion of further treatment options In the meantime, patient will jamie tape the right index and middle fingers to prevent this overlap and promote functionality of the right index finger in the meantime Patient understands this in his amenable to this plan Follow-up after MRI for results review and discussion of further treatment options, sooner with any acute concerns Orders: Orders MR hand RT wo con Today S63.610A - Unspecified sprain of right index finger, initial encounter XR hand RT min 3V Today M79.641 - Pain in right hand Medications: Discontinued cephalexin Discontinued Reason: Patient Completed Course 500 mg PO Q12H 13 caps 0RF phenazopyridine (Pyridium) Discontinued Reason: Patient Completed Course 200 mg PO TID PRN 9 tabs 0RF pain prednisone Discontinued Reason: Patient Completed Course 40 mg (2 x 20 mg) PO DAILY 5 days 10 tabs 0RF Coding Level of Care Code New Pt Level 3 (46811) Diagnoses Sprain of right index finger S63.610A
--- OUTSIDE RECORDS SUMMARY | 2025-06-12 03:19 | XMS_ITS | Clinical Summary ---
Author Organization [facility] [address] [place] [address] Address [address] [place] [address] Phone Care Team Providers Care Deputy Juvenile Officer Name Role Phone Celestine Vargas MD Primary [...] each nostril as directed 09/14/19 24 Active diclofenac (VOLTAREN) 1 % topical gel Apply 1 Applicator topically 2 times daily as needed (left elbow pain). 07/10/20 22 Active LORazepam (ATIVAN) 0.5 mg tablet TAKE 1 TABLET BY MOUTH ONCE A DAY NEEDED FOR SEVERE ANXIETY. UP TO 12 TIMES PER MONTH. 11/14/19 23 Active reservoir inhalation (INSPIREASE) device Use with inhaler 07/24/20 15 Active traZODone (DESYREL) 50 mg tablet TAKE [...] DAILY 32 mL 2 09/05/19 25 Active Symbicort 160-4.5 mcg/actuation inhalerIndicatio ns:Moderate persistent asthma with (acute) exacerbation INHALE 2 PUFFS INTO THE LUNGS EVERY 12 HOURS. THIS MEDICATION HAS INHALER STEROID: RINSE MOUTH WITH WATER AND EXPECTORATE AFTER EACH DOSE TO PREVENT ORAL/ESOPHAGEAL CANDIDIASIS OR FUNGAL INFECTION. 30.6 each 3 12/06/19 25 Active cetirizine (ZyrTEC) 10 mg tabletIndication s:Allergic rhinitis, unspecified,Mode rate persistent asthma with (acute) exacerbation TAKE 1 TABLET BY MOUTH DAILY 30 tablet 3 01/14/20 25 Active Ventolin HFA 90 mcg/actuation inhalerIndicatio ns:Moderate persistent asthma with (acute) exacerbation INHALE 2 PUFFS INTO THE LUNGS 4 TIMES DAILY NEEDED FOR WHEEZING OR SHORTNESS OF BREATH. 54 each 1 03/13/20 25 Active omeprazole (PriLOSEC) [address] capsule Take 1 capsule (40 mg total) by mouth 1 (one) time each day. 90 each 03/07/20 25 025 Active Problems Problem Noted Date Diagnosed Date [...] months. Obstructive sleep apnea 11/06/2021 Overview (08/02/2024): [facility] Home sleep test 11/03/2021; weight 180; [...] older (Afluria) 3 years and older 05/15/2013,05/11/2012,05/18/2011,05/19,04/10/2009,06/08/2008 1d4 Pty SARS-CoV-2 COVID-19, mRNA, LNP-S, preservative free 05/05/2021 Pneumococcal polysaccharide 23 valent (Pneumovax 23) 2yo and older 04/11/2020 Tdap Tetanus diptheria acell ular pertussis (Boostrix; Adacel) 7yo and older 10/17/2015,05/15/2013,03/12/2010 Surgical History Surgery Date Site/Laterality Comments COLPOSCOPY PROCEDURE: ME COLPOSCOPY ENTIRE VAGINA W/CERVIX IF PRESENT; COMMENT: ? LEEP OTHER SURGICAL HISTORY 11/14/2021 PROCEDURE: ME ARTHRD ANT INTERBODY MIN DSC CRV BELOW [...] for your loved ones. For example, child protective services specialist or elderly care for an older adult? [...] Colonoscopy 05/20/2026 05/20/2023 Breast Cancer Screening 05/25/2026 05/25/20, 05/25/2024, 05/21/2023, Additional history exists Cholesterol Screening [...] Breast cancer risk category Low (<15%) Location: [facility], [address] [place] [address], [phone], [phone] Procedure Note Mariela Melendez MD - 06/19/2024 [...] Breast cancer risk category Low (<15%) Location: [facility], [address] [place] [address], [address], [phone] Talya Mazariegos MD IMG XR PROCEDURES Final Res ult * Cervical Cancer Screening: HPV (12/23/2022) Pathologist [facility] Cervical Cancer Screening: HPV Negative, Abstracted Historical Provider HEALTH MAINTENANCE Final Result * HIV Screening (07/10/2022) [facility] HIV Screening Abstracted [facility] Provider HEALTH MAINTENANCE Final Result * Hepatitis C Screening (07/10/2022) Pathologist [facility] Hepatitis C Screening Abstracted Historical Provider MD HEALTH MAINTENANCE Final Result * (ABNORMAL) Lipid panel (04/03/2022) Pathologist [facility] LDL/HDL Ratio 5(A) 0 - 4 Triglycerides 239(A) 0 - 150 mg/dL Cholesterol 285(A) 0 - 200 mg/dL HDL 56 >=40 mg/dL LDL Cholesterol 182(A) 0 - 100 mg/dL Blood Venous blood specimen / Unknown Result [facility] Historical Provider LAB BLOOD ORDERABLES Arleen l Result from Last 3 Months or Most Recently Relevant to Health Maintenance Insurance [facility] Care Teams Deputy Juvenile Officer Relationship Specialty Start Date End Date Celestine Vargas MD [address] [place] [address] PCP - General Internal Medicine 05/07/22
--- OUTSIDE RECORDS SUMMARY | 2025-06-12 03:19 | XMS_ITS | Clinical Summary ---
Author Organization [facility] Address [address] [place] [address] Care Team Providers Care Security Tech Name Role Phone Leonardo Honeycutt Primary Care Provider [phone] Allergies No known active allergies Encounters Date Type Department Care Team Description 03/17/2025 8:23 PM EDT - 03/18/2025 2:30 AM EDT Emergency [facility] Emergency Department [address] [place] [address] Viktor Stiles MD Carey, Christopher W, MD [...] Required) Completed Insurance MEDICAID OUT OF STATE [facility] Care Teams Security Tech Relationship Specialty Start Date End Date Leonardo Honeycutt [facility] [address] [place] [address] PCP - General
== END 2025-06-11 14:55 | disposition home or self-care (01) ==
LOC: HO.HOS 13:52
PROVIDERS: PCP Internal Medicine
DX: S63.610A Unspecified sprain of right index finger, initial encounter (principal)
CPT/HCPCS: 99203

== ENCOUNTER → 2025-07-01 16:15 | Outpatient (BNV) | payer OTHER, SELFPAY | PROVIDERS: PCP Internal Medicine; Visit Provider Radiology Diagnostic Radiology | DX: S63.650A Sprain of metacarpophalangeal joint of right index finger, initial encounter (principal); M25.441 Effusion, right hand | CPT/HCPCS: 73218 ==

== ENCOUNTER 2025-07-01 16:37 | Outpatient (REF) | payer OTHER, SELFPAY ==
--- NOTE | ~2025-07-01 | MR_ITS ---
CLINICAL HISTORY: S63.610A - Unspecified sprain of right index finger, initial encounter --- Additional Notes or Special Instructions: Concern for RCL tear of R IF MCP MR right hand without contrast Comparison: DX/SR - XR HAND 3 OR MORE VIEWS RIGHT - 06/11/25 13:53 EST CR - XR HAND RT MIN 3V - 06/04/25 23:11 EST CR - XR HAND RT MIN 3V - 11/13/24 12:09 EDT Findings: Trace amount of edema in the 2nd metacarpal head, likely posttraumatic/secondary to altered biomechanics. Focal defect in the cortex at the base of the 2nd proximal phalanx at the dorsal aspect deep to the extensor tendon (series 7, image 11). No ossific fragment is seen in this region on the prior radiographs. A distinct fracture line is not identified on this exam. No aggressive osseous lesion. Bone marrow signal is otherwise normal. Subluxation at the 2nd metacarpophalangeal joint. No dislocation. Moderate-sized joint effusion of the 2nd metacarpophalangeal joint. No other joint effusion. The extensor tendon of the 2nd digit is partially torn at the level of the metacarpophalangeal joint with mild subluxation towards the ulnar aspect which likely indicates injury to the sagittal bands (series 3 images 20 through 23). The extensor tendon of the 2nd digit is otherwise intact. The other flexor and extensor tendons are intact and normal in signal. There is marked increase in signal in the radial collateral ligament of the 2nd metacarpophalangeal joint with near-complete tear (series 6 images 5 through 8). There is mild increase in signal with suspected partial tear in the ulnar collateral ligament of the 2nd metacarpophalangeal joint (series 6 images 5 through 8). The ligaments are otherwise intact. There is a mild amount of edema within the musculature adjacent to the 2nd metacarpal head. The musculature is otherwise normal in signal. The musculature is normal in bulk. Normal vessels and nerves. Impression: Injury to the 2nd metacarpophalangeal joint with associated trace amount of edema in the 2nd metacarpal head, focal defect in the cortex of the base of the 2nd proximal phalanx, moderate-sized joint effusion, partial tear of the extensor tendon with mild subluxation and injury to the sagittal bands, near-complete tear of the radial collateral ligament and sprain versus partial tear of the ulnar collateral ligament. This document has been electronically signed by: Tamika Woods MD on 07/01/2025 18:23:21
--- OUTSIDE RECORDS SUMMARY | 2025-07-01 16:44 | XMS_ITS | Encounter Summary ---
Author Organization [employer] [facility] Prior to 05/26/2024 Address [address] [place] [address] Care Team Providers Care Homeopathic Doctor Name Role Phone Aung Thompson MD Primary Care Provider [phone] Samina Canales MD Primary Care Provider Unavaila Gissell Abarca MD Primary Care Provider Unavail able Ata Welch MD Primary Care Provider [phone] Iva Garcia PA-C Unavailable [phone] Guido Harper PA-C Unavailable [phone] Celestine Vargas MD Primary Care Provider [phone] May Reynoso MD Unavailable [phone] Encounter Details Date Type Department Care Team Description 10/24/2015 Hospital Medical Records [address] [place] [address] [facility] Social History Tobacco Use Types Packs/Day Years [...] on filedocumented in this encounter Care Teams Homeopathic Doctor Relationship Specialty Start Date End Date Aung Thompson MD [address] [place] [address] [id number] PCP - General Internal Medicine 06/27/15 05/20/16 Samina Canales MD [address] [place] [address] PCP - General Internal Medicine 05/21/16 10/11/18 Gissell Hernandez MD [address] [place] [address] PCP - General Internal Medicine 10/12/18 08/19/21 Ata Welch MD [address] [place] [address] PCP - General Internal Medicine 08/20/21 05/06/22 Celestine Vargas MD [address] [place] [address] PCP - General Internal Medicine 05/07/22 Iva Garcia PA-C [address] [address] Specialist Neurosurgery 12/05/21 Guido Harper PA-C [address] [address] Specialist Neurosurgery 01/15/22 May Reynoso MD [address] [address] Surgeon Neurosurgery 03/26/23 documented as of this encounter
--- OUTSIDE RECORDS SUMMARY | 2025-07-01 16:44 | XMS_ITS | Encounter Summary ---
Author Organization [facility] [facility] Prior to 05/26/2024 Address [address] [place] [address] Care Team Providers Care Product Support Manager Name Role Phone Samina Canales MD Primary Care Provider Unavaila Gissell Abarca MD Primary Care Provider Unavail able Ata Welch MD Primary Care Provider Iva Garcia PA-C Unavailable Guido Harper PA-C Unavailable Celestine Vargas MD Primary Care Provider [phone] May Reynoso MD Unavailable [phone] Encounter Details Date Type Department Care Team Description 06/11/2016 Pt. Non Urgent Medic al Question Adult Medicine - [address] [address] Jose Winter PA-C Social History Tobacco Use [...] L.P.N. - 06/11/2016 3:33 PM ESTFrom: Deena Walden To: Jose Winter PA-C Sent: 06/11/2016 3:30 [...] on filedocumented in this encounter Care Teams Product Support Manager Relationship Specialty Start Date End Date Samina Canales MD PCP - General Internal Medicine 05/21/16 10/11/18 Gissell Hernandez MD PCP - General Internal Medicine 10/12/18 08/19/21 Ata Welch MD [address] [place] [address] PCP - General Internal Medicine 08/20/21 05/06/22 Celestine Vargas MD [address] [place] [address] PCP - General Internal Medicine 05/07/22 Iva Garcia PA-C [address] [place] [address] Specialist Neurosurgery 12/05/21 Guido Harper PA-C [address] [place] [address] Specialist Neurosurgery 01/15/22 May Reynoso MD [address] [address] Surgeon Neurosurgery 03/26/23 documented as of this encounter
--- OUTSIDE RECORDS SUMMARY | 2025-07-01 16:44 | XMS_ITS | Encounter Summary ---
Author Organization [facility] Prior to 05/26/2024 Address [address] [place] [address] Care Team Providers Care Licensed Therapist Name Role Phone Iva Garcia PA-C Unavailable Guido Harper PA-C Unavailable [phone] Celestine Vargas MD Primary Care Provider May Reynoso MD Unavailable [phone] Encounter Details Date Type Department Care Team Description 02/13/2023 Refill Adult Medicine [address] [address] Celestine Vargas MD [address] [place] [address] Social History Tobacco Use Types Packs/Day Years [...] Recorded In the last 10 days, have sebastian dupont been in contact with someone who was confirmed or suspected to have Coronavirus/COVID-19? No / Unsure 02/15/2023 8:54 AM EDT documented as of this encounter Miscellaneous Notes * Telephone Encounter - Sarai Cintron M.A. - 02/15/2023 9:33 AM EDT Please sign for Dr Vargas: Transmission to pharmacy failed (01/27/2023 ??1:06 PM EDT) documented in this encounter Plan of Treatment Not on file documented as of this encounter Visit Diagnoses Not on filedocumented in this encounter Care Teams Licensed Therapist Relationship Specialty Start Date End Date Celestine Vargas MD [address] [place] [address] PCP - General Internal Medicine 05/07/22 Iva Garcia PA-C [address] [address] Specialist Neurosurgery 12/05/21 Guido Harper PA-C [address] [address] Specialist Neurosurgery 01/15/22 May Reynoso MD [address] [address] Surgeon Neurosurgery 03/26/23 documented as of this encounter
--- OUTSIDE RECORDS SUMMARY | 2025-07-01 16:44 | XMS_ITS | Encounter Summary ---
Author Organization [employer] [facility] Prior to 05/26/2024 Address [address] [place] [address] Care Team Providers Care Info Print Press Operator Name Role Phone Gissell Hernandez MD Primary Care Provider Unavail able Ata Welch MD Primary Care Provider [phone] Iva Garcia PA-C Unavailable Guido Harper PA-C Unavailable [phone] Celestine Vargas MD Primary Care Provider [phone] May Reynoso MD Unavailable [phone] Encounter Details Date Type Department Care Team Description 01/17/2021 Pt. Non Urgent Medic al Question Physiatry - [address] [address] Blayne Foley PA-C Social History Tobacco Use Types Packs/Day [...] have Coronavirus / COVID-19? No / Unsure 01/15/2021 8:26 AM EDT documented as of this encounter Plan of Treatment Not on file documented as of this encounter Visit Diagnoses Not on filedocumented in this encounter Care Teams Info Print Press Operator Relationship Specialty Start Date End Date Gissell Hernandez MD PCP - General Internal Medicine 10/12/18 08/19/21 Ata Welch MD [address] [place] [address] PCP - General Internal Medicine 08/20/21 05/06/22 Celestine Vargas MD [address] [place] [address] PCP - General Internal Medicine 05/07/22 Iva Garcia PA-C [address] [address] Specialist Neurosurgery 12/05/21 Guido Harper PA-C [address] [address] Specialist Neurosurgery 01/15/22 May Reynoso MD [address] [address] Surgeon Neurosurgery 03/26/23 documented as of this encounter
--- OUTSIDE RECORDS SUMMARY | 2025-07-01 16:44 | XMS_ITS | Encounter Summary ---
Author Organization [facility] Prior to 05/26/2024 Address [address] [place] [address] Care Team Providers Care Audiometrist Name Role Phone Samina Canales MD Primary Care Provider Unavaila Gissell Abarca MD Primary Care Provider Unavail able Ata Welch MD Primary Care Provider [phone] Iva Garcia PA-C Unavailable [phone] Guido Harper-C Unavailable [phone] Celestine Vargas MD Primary Care Provider May Reynoso MD Unavailable [phone] Reason for Visit * Reason Onset Date Comments REFERRAL 02/22/2017 Encounter Details Date Type Department Care Team Description 02/22/2017 Telephone Physiatry - [address] [address] Jun Crowe, REFERRAL Social History Tobacco Use [...] Patient will be taken off of referrals report.FYI documented in this encounter Plan of Treatment Not on file documented as of this encounter Visit Diagnoses Not on filedocumented in this encounter Care Teams Audiometrist Relationship Specialty Start Date End Date Samina Canales MD PCP - General Internal Medicine 05/21/16 10/11/18 Gissell Hernandez MD PCP - General Internal Medicine 10/12/18 08/19/21 Ata Welch MD [address] [place] [address] PCP - General Internal Medicine 08/20/21 05/06/22 Celestine Vargas MD [address] [place] [address] PCP - General Internal Medicine 05/07/22 Iva Garcia PA-C [address] [place] [address] Specialist Neurosurgery 12/05/21 Guido Harper PA-C [address] [place] [address] Specialist Neurosurgery 01/15/22 May Reynoso MD [address] [address] Surgeon Neurosurgery 03/26/23 documented as of this encounter
--- OUTSIDE RECORDS SUMMARY | 2025-07-01 16:44 | XMS_ITS | Encounter Summary ---
Author Organization [facility] [facility] Prior to 05/26/2024 Address [address] [place] [address] Care Team Providers Care Wall Covering Installer Name Role Phone Samina Canales MD Primary Care Provider Unavaila Gissell Abarca MD Primary Care Provider Unavail able Ata Welch MD Primary Care Provider [phone] Iva Garcia PA-C Unavailable [phone] Guido Harper-C Unavailable [phone] Celestine Vargas MD Primary Care Provider [phone] May Reynoso MD Unavailable [phone] Encounter Details Date Type Department Care Team Description 12/28/2017 Refill Pulmonology [address] [place] [address] Gurinder Ochoa MD Social History Tobacco Use [...] Renewal Request Original authorizing provider: MD Deena Schwartzhowski would like a refill of the following medications: fluticasone (FLOVENT HFA) 110 MCG/ACT inhaler [Gurinder Ochoa MD] [facility] [id number] [place] [address] [address] [facility] Comment: Medication renewals requested in this message routed to other providers: ALBUTEROL SULFATE (PROAIR HFA) 108 (90 BASE) MCG/ACT Aero Soln [Aung Thompson MD] documented in this encounter Plan of Treatment Not on file documented as of this encounter Visit Diagnoses Diagnosis Asthma, mild persistent, uncomplicated documented in this encounter Care Teams Wall Covering Installer Relationship Specialty Start Date End Date Samina Canales MD PCP - General Internal Medicine 05/21/16 10/11/18 Gissell Hernandez MD PCP - General Internal Medicine 10/12/18 08/19/21 Ata Welch MD [address] [place] [address] PCP - General Internal Medicine 08/20/21 05/06/22 Celestine Vargas MD [address] [place] [address] PCP - General Internal Medicine 05/07/22 Iva Garcia PA-C [address] [place] [address] Specialist Neurosurgery 12/05/21 Guido Harper PA-C [address] [address] Specialist Neurosurgery 01/15/22 May Reynoso MD [address] [address] Surgeon Neurosurgery 03/26/23 documented as of this encounter
--- OUTSIDE RECORDS SUMMARY | 2025-07-01 16:44 | XMS_ITS | Encounter Summary ---
Author Organization [facility] Prior to 05/26/2024 Address [address] [place] [address] Care Team Providers Care Bag Machine Operator Name Role Phone Shashi Ng MD Primary Care Provider Becky Scar Middleton MD Primary Care Provider Unavail able Daniella Zuleta DO Primary Care Pro vider Unavailable Aung Thompson MD Primary Care Provider Samina Canales MD Primary Care Provider Unavaila Gissell Abarca MD Primary Care Provider Unavail able Ata Welch MD Primary Care Provider [phone] Iva Garcia PA-C Unavailable [phone] Guido Harper PA-C Unavailable [phone] Celestine Vargas MD Primary Care Provider [phone] May Reynoso MD Unavailable [phone] Reason for Visit * Reason Onset Date Comments Surveillance Sensor Operator Feedback 07/03/2013 Encounter Details Date Type Department Care Team Description 07/03/2013 Telephone Adult [address] [phone] Shashi Ng MD Surveillance Sensor Operator Feedback Social History Tobacco Use Types Packs/Day [...] Miscellaneous Notes * Telephone Encounter - Kristie JeromeKevin Brown - 07/03/2013 2:14 PM EST No insurance referral required per patient's insurance. Fax to [phone] Notes, order and xray * Telephone Encounter - Poonam Hickman - 07/03/2013 2:09 PM EST Did you verify this is patients current insurance? YES Payor: [employer] FFS Plan: FFS HMO $0 [facility] [id number] Product Type: MEDICAID RISK Effective 04/25/09: BCBS [...] insurance must be obtained and registered in PSYCH[facility]ATRIC or their referral can not be processed. [...] Is this visit:Initial Visit Address of Specialist: [address] [place] [address] Phone # of Specialist: [phone] Fax #: (if applicable): [phone] Does patient have an appointment scheduled?: YES Date of appointment- (including a retro-request): 07/12/13 Is this appointment related to: Not MVA, WC or Surgery related documented in this encounter Plan of Treatment Not on file documented as of this encounter Visit Diagnoses Not on filedocumented in this encounter Care Teams Bag Machine Operator Relationship Specialty Start Date End Date Shashi Ng MD PCP - General 02/29/08 07/25/14 Scar Otto MD PCP - General Internal Medicine 09/18/14 04/30/15 Daniella Zuleta DO PCP - General Internal Medicine 05/01/15 06/26/15 Aung Thompson MD [address] [place] [address] PCP - General Internal Medicine 06/27/15 05/20/16 Samina Canales MD [address] [place] [address] PCP - General Internal Medicine 05/21/16 10/11/18 Gissell Hernandez MD [address] [place] [address] PCP - General Internal Medicine 10/12/18 08/19/21 Ata Welch MD [address] [place] [address] PCP - General Internal Medicine 08/20/21 05/06/22 Celestine Vargas MD [address] [place] [address] PCP - General Internal Medicine 05/07/22 Iva Garcia PA-C [address] [place] [address] Specialist Neurosurgery 12/05/21 Guido Harper PA-C [address] [address] Specialist Neurosurgery 01/15/22 May Reynoso MD [address] [place] [address] Surgeon Neurosurgery 03/26/23 documented as of this encounter
--- OUTSIDE RECORDS SUMMARY | 2025-07-01 16:44 | XMS_ITS | Encounter Summary ---
Author Organization [employer] [facility] Prior to 05/26/2024 Address [address] [place] [address] Care Team Providers Care Pocket And Pulley Machine Operator Name Role Phone Ata Welch MD Primary Care Provider Iva Garcia PA-C Unavailable Guido Harper PA-C Unavailable Celestine Vargas MD Primary Care Provider May Reynoso MD Unavailable [phone] Encounter Details Date Type Department Care Team Description 04/03/2022 Pt. Non Urgent Medical Question Adult Medicine [facility] [address] [place] [phone] Grace Arnold PA-C [address] [place] [address] [phone] Social History Tobacco Use Types Packs/Day Years [...] on filedocumented in this encounter Care Teams Pocket And Pulley Machine Operator Relationship Specialty Start Date End Date Ata Welch MD [address] [place] [address] PCP - General Internal Medicine 08/20/21 05/06/22 Celestine Vargas MD [address] [place] [address] PCP - General Internal Medicine 05/07/22 Iva Garcia PA-C [address] [place] [address] Specialist Neurosurgery 12/05/21 Guido Harper PA-C [address] [address] Specialist Neurosurgery 01/15/22 May Reynoso MD [address] [address] Surgeon Neurosurgery 03/26/23 documented as of this encounter
--- OUTSIDE RECORDS SUMMARY | 2025-07-01 16:44 | XMS_ITS | Encounter Summary ---
Author Organization [facility] [employer] [facility] Prior to 05/26/2024 Address [address] [place] [address] Care Team Providers Care Marketing Communications Coordinator Name Role Phone Gissell Hernandez MD Primary Care Provider Unavail Ata Mares MD Primary Care Provider [phone] Iva Garcia PA-C Unavailable Guido Harper PA-C Unavailable Celestine Vargas MD Primary Care Provider [phone] May Reynoso MD Unavailable [phone] Reason for Visit * Reason Onset Date Comments Prior Authorization 08/22/2020 Encounter Details Date Type Department Care Team Description 08/22/2020 Telephone Pulmonology - Panacea [address] [facility] [address] [place] [phone] Taran Smith MD 175 [facility] [address] [place] [address] Prior Authorization Social History Tobacco Use Types Packs/Day Years [...] or suspected to have Coronavirus / COVID-19? Unable to assess 08/16/2020 8:22 AM EST documented as of this encounter Miscellaneous Notes * Telephone Encounter - Ning June M.A. - 08/27/2020 12:54 PM EST Prior authorization for the breo ellipta was approved Approved from 08/26/20 until 08/26/21 Prior authorization approval number # [id number] Approval faxed to [facility] at [phone] * Telephone Encounter - Ning June M.A. - 08/26/2020 10:47 AM EST Prior authorization completed on cover my meds today for the breo ellipta New start Dx asthma * Telephone Encounter - Moise Adan - 08/22/2020 11:13 AM EST Prior Authorization for Medication-do not complete and send this encounter unless you have the fax from the pharmacy. Is this a Cover My Meds request: Yes -- Quispe Code [id number] Name of Medication Breo Ellipta Inh Aerosol Dose of Medication 100-25mcg What is the RX # from the faxed refill? N/a How does patient take this med? N/a What Pharmacy did the fax come from: [facility] fax #: [phone] [employer] Information from fax: What Prescription Plan does the patient have? BIN/PCN if applicable: Cardholder ID: Person Code: Relationship Code: Help desk phone: documented in this encounter Plan of Treatment Not on file documented as of this encounter Visit Diagnoses Not on filedocumented in this encounter Care Teams Marketing Communications Coordinator Relationship Specialty Start Date End Date Gissell Hernandez MD PCP - General Internal Medicine 10/12/18 08/19/21 Ata Welch MD [address] [place] [address] PCP - General Internal Medicine 08/20/21 05/06/22 Celestine Vargas MD [address] [place] [address] PCP - General Internal Medicine 05/07/22 Iva Garcia PA-C [address] [address] Specialist Neurosurgery 12/05/21 Guido Harper PA-C [address] [address] Specialist Neurosurgery 01/15/22 May Reynoso MD [address] [address] Surgeon Neurosurgery 03/26/23 documented as of this encounter
--- OUTSIDE RECORDS SUMMARY | 2025-07-01 16:44 | XMS_ITS | Clinical Summary ---
Author Organization [facility] [address] [place] [address] Address [address] [place] [address] Phone Care Team Providers Care Continuous Improvement Manager Name Role Phone Celestine Vargas MD Primary [...] months. Obstructive sleep apnea 11/06/2021 Overview (08/02/2024): [facility] Home sleep test 11/03/2021; weight 180; BMI [...] older (Afluria) 3 years and older 05/15/2013,05/11/2012,05/18/2011,05/19,04/10/2009,06/08/2008 Cardia SARS-CoV-2 COVID-19, mRNA, LNP-S, preservative free 05/05/2021 Pneumococcal polysaccharide 23 valent (Pneumovax 23) 2yo and older 04/11/2020 Tdap Tetanus diptheria acell ular pertussis (Boostrix; Adacel) 7yo and older 10/17/2015,05/15/2013,03/12/2010 Surgical History Surgery Date Site/Laterality Comments COLPOSCOPY PROCEDURE: VT COLPOSCOPY ENTIRE VAGINA W/CERVIX IF PRESENT; COMMENT: ? LEEP OTHER SURGICAL HISTORY 11/14/2021 PROCEDURE: VT ARTHRD ANT INTERBODY MIN DSC CRV BELOW [...] for your loved ones. For example, child life therapist or elderly care for an older adult? [...] on file Sexual Orientation Not on file Last Filed Vital Signs [...] Breast cancer risk category Low (<15%) Location: [facility], [address] [place] [address], [address], [phone] Procedure Note Mariela Melendez MD - 06/19/2024 [...] Breast cancer risk category Low (<15%) Location: [facility], [address] [place] [address], [address], [phone] Talya Mazariegos MD IMG XR PROCEDURES Final Res ult * Cervical Cancer Screening: HPV (12/23/2022) Pathologist [facility] Cervical Cancer Screening: HPV Negative, Abstracted [facility] Provider HEALTH MAINTENANCE Final Result * HIV Screening (07/10/2022) [facility] HIV Screening Abstracted Result [facility] Provider HEALTH MAINTENANCE Final Result * Hepatitis C Screening (07/10/2022) Pathologist [facility] Hepatitis C Screening Abstracted Result [facility] Provider [place] HEALTH MAINTENANCE Final Result * (ABNORMAL) Lipid panel (04/03/2022) Pathologist [facility] LDL/HDL Ratio 5(A) 0 - 4 Triglycerides 239(A) 0 - 150 mg/dL Cholesterol 285(A) 0 - 200 mg/dL HDL 56 >=40 mg/dL LDL Cholesterol 182(A) 0 - 100 mg/dL Blood Venous blood specimen / Unknown Result [facility] Provider LAB BLOOD ORDERABLES Arleen l Result from Last 3 Months or Most Recently Relevant to Health Maintenance Insurance [facility] [place] [address] Care Teams Continuous Improvement Manager Relationship Specialty Start Date End Date Celestine Vargas MD [address] [place] [address] PCP - General Internal Medicine 05/07/22
--- OUTSIDE RECORDS SUMMARY | 2025-07-01 16:44 | XMS_ITS | Encounter Summary ---
Author Organization [facility] Prior to 05/26/2024 Address [address] [place] [address] Care Team Providers Care Car Porter Name Role Phone Aung Thompson MD Primary Care Provider Samina Canales MD Primary Care Provider Unavaila Gissell Abarca MD Primary Care Provider Unavail able Ata Welch MD Primary Care Provider Iva Garcia PA-C Unavailable Guido Harper PA-C Unavailable Celestine Vargas MD Primary Care Provider [phone] May Reynoso MD Unavailable [phone] Reason for Visit * Reason Onset Date Comments 08/22/2015 Encounter Details Date Type Department Care Team Description 08/22/2015 [facility] [address] [address] Ava Marvin, [facility] [address] [place] [address] Social History Tobacco Use Types Packs/Day Years [...] 1 hr glucose and iron test And shredder picker printed information... Please sign rx for [...] now * Telephone Encounter - Rosana Bateman L.P.NKevin - 08/22/2015 12:52 PM EST Message rerouted [...] plan * Telephone Encounter - Rosana Bateman L.P.NKevin - 08/22/2015 11:19 AM EST pts message was sent to [facility] Bit appears it has not been addressed [...] speak to nurse. Also she was taking [place] vitamins and they are now getting expensive and would like to know if she could get a script sent to pharmacy for pre vicki vitamins How long has the patient had this problem? - Pt???s ENVIRONMENTAL SCIENCE INSTRUCTOR provider: Ava Marvin CNM Last menstrual period (LMP) or EDC (due date): N/A documented in this encounter Plan of Treatment Not on file documented as of this encounter Visit Diagnoses Not on filedocumented in this encounter Care Teams Car Porter Relationship Specialty Start Date End Date Aung Thompson MD [address] [place] [address] PCP - General Internal Medicine 06/27/15 05/20/16 Samina Canales MD [address] [place] [address] PCP - General Internal Medicine 05/21/16 10/11/18 Gissell Hernandez MD [address] [place] [address] PCP - General Internal Medicine 10/12/18 08/19/21 Ata Welch MD [address] [place] [address] PCP - General Internal Medicine 08/20/21 05/06/22 Celestine Vargas MD [address] [place] [address] PCP - General Internal Medicine 05/07/22 Iva Garcia PA-C [address] [address] Specialist Neurosurgery 12/05/21 Guido Harper PA-C [address] [place] [address] Specialist Neurosurgery 01/15/22 May Reynoso MD [address] [address] Surgeon Neurosurgery 03/26/23 documented as of this encounter
--- OUTSIDE RECORDS SUMMARY | 2025-07-01 16:44 | XMS_ITS | Encounter Summary ---
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 No / Unsure 11/21/2020 12:25 PM EDT documented as of this encounter Plan of Treatment Not on file documented as of this encounter Visit Diagnoses Not on filedocumented in this encounter Care Teams Ammonia Technician Relationship Specialty Start Date End Date Gissell Hernandez MD PCP - General Internal Medicine 10/12/18 08/19/21 Ata Welch MD [address] [place] [address] PCP - General Internal Medicine 08/20/21 05/06/22 Celestine Vargas MD [address] [place] [address] PCP - General Internal Medicine 05/07/22 Iva Garcia PA-C [address] [address] Specialist Neurosurgery 12/05/21 Guido Harper PA-C [address] [address] Specialist Neurosurgery 01/15/22 May Reynoso MD [address] [address] Surgeon Neurosurgery 03/26/23 documented as of this encounter
--- OUTSIDE RECORDS SUMMARY | 2025-07-01 16:44 | XMS_ITS | Encounter Summary ---
Author Organization [facility] Prior to 05/26/2024 Address [address] [place] [address] Care Team Providers Care Electronic Equipment Repairer Name Role Phone Ata Welch MD Primary Care Provider [phone] Iva Garcia PA-C Unavailable Guido Harper PA-C Unavailable Celestine Vargas MD Primary Care Provider [phone] May Reynoso MD Unavailable [phone] Reason for Visit * Reason Onset Date Comments Rash 03/18/2022 Encounter Details Date Type Department Care Team Description 03/18/2022 Telephone Adult Medicine [address] [id number] Ata Welch MD [address] [place] [address] [id number] Rash Social History Tobacco Use Types Packs/Day Years [...] suspected to have Coronavirus/COVID-19? No / Unsure 03/10/2022 10:29 AM EDT documented as of this encounter Miscellaneous Notes * Telephone Encounter - Zack Gibson.P.N. 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 Her sneakers never get wet Doesn't walk bare foot at home she does wash her hand often at work No new soak no new laundry soap no new med's Advised Benadryl following package directions Did give her a warning Benadryl may cause drowness should not drive if taking this medication Cool showers She understands Appt with Paige MAGALLON on 04/03 at 8:45 * Telephone Encounter - Naina Santamaria - 03/18/2022 8:51 AM EDT Symptoms patient is presenting: hands and feet very itchy, no mujica, bumps, or discoloration just itchy For ALL patients calling to schedule any appointment (routine, sick visit, follow up, consult, etc.) in the outpatient setting please ask the following questions: ?? Do you have fever of higher than 101, sore throat with difficulty swallowing or severe shortnessof breath? NO If YES to any of these above symptoms, send a message to triage and do not book. Red dot. If no, an audio or video visit should be booked. ?? Have you had close contact with someone with Coronavirus in the last 14 days? NO ?? Have you traveled abroad? NO ?? Have you traveled recently to another state outside of [place], [place], [place], [place], [place], [place], [place]? NO o If yes, did you quarantine for 14 days or have a negative covid test? NO If yes to any of the above, patient is not to be scheduled in office until after 14 day quarantine or negative covid test. If pain or injury related was it due to an accident at work or from a motor vehicle accident? NO If yes, gather 3rd constitution party insurance information Date of accident/Injury: How long has patient had these symptoms?: a few days ago PCP: Ata Welch Payor: [facility] FFS / Plan: [facility] / Product Type: MEDICAID RISK documented in this encounter Plan of Treatment Not on file documented as of this encounter Visit Diagnoses Not on filedocumented in this encounter Care Teams Electronic Equipment Repairer Relationship Specialty Start Date End Date Ata Welch MD [address] [place] [address] PCP - General Internal Medicine 08/20/21 05/06/22 Celestine Vargas MD [address] [place] [address] PCP - General Internal Medicine 05/07/22 Iva Garcia PA-C [address] [address] Specialist Neurosurgery 12/05/21 Guido Harper PA-C [address] [address] Specialist Neurosurgery 01/15/22 aMy Reynoso MD [address] [address] Surgeon Neurosurgery 03/26/23 documented as of this encounter
--- OUTSIDE RECORDS SUMMARY | 2025-07-01 16:44 | XMS_ITS | Clinical Summary ---
Author Organization [facility] Address [address] [place] [address] Care Team Providers Care Co Pilot Name Role Phone Leonardo Honeycutt Primary Care Provider [phone] Allergies No known active allergies Social History Tobacco Use Types Packs/Day Years [...] , 05/18/2011, Additional history exists COVID-19 Vaccine (2024- 6 season) 2025 05/05/2021, 10/13/2020, 09/22/2020 HPV Vaccines (No Doses Required) Completed Insurance MEDICAID OUT OF STATE [facility] Care Teams Co Pilot Relationship Specialty Start Date End Date Yinka, [facility] [address] [place] [address] PCP - General
--- OUTSIDE RECORDS SUMMARY | 2025-07-01 16:45 | XMS_ITS | Encounter Summary ---
Author Organization [facility] Prior to 05/26/2024 Address [address] [place] [address] Care Team Providers Care Loom Inspector Name Role Phone Iva Garcia PA-C Unavailable Guido Harper PA-C Unavailable Celestine Vargas MD Primary Care Provider May Reynoso MD Unavailable [phone] Encounter Details Date Type Department Care Team Description 05/24/2023 Pt. Non Urgent Medical Question Adult Medicine [address] [address] Celestine Vargas MD [address] [place] [address] Social History Tobacco Use Types Packs/Day Years [...] on filedocumented in this encounter Care Teams Loom Inspector Relationship Specialty Start Date End Date Celestine Vargas MD [address] [place] [address] PCP - General Internal Medicine 05/07/22 Iva Garcia PA-C [address] [address] Specialist Neurosurgery 12/05/21 Guido Harper PA-C [address] [address] Specialist Neurosurgery 01/15/22 May Reynoso MD [address] [address] Surgeon Neurosurgery 03/26/23 documented as of this encounter
--- OUTSIDE RECORDS SUMMARY | 2025-07-01 16:45 | XMS_ITS | Encounter Summary ---
Author Organization [facility] Prior to 05/26/2024 Address [address] [place] [address] Care Team Providers Care Seasonal Customer Service Associate Name Role Phone Shashi Sharma MD Primary Care Provider Becky Elvia Graves MD Primary Care Provider [phone] Scar Otto MD Primary Care Provider Unavail able Daniella Zuleta DO Primary Care Pro vider Unavailable Aung Thompson MD Primary Care Provider Samina Canales MD Primary Care Provider Unavaila Gissell Abarca MD Primary Care Provider Unavail able Ata Welch MD Primary Care Provider [phone] Iva Garcia PA-C Unavailable [phone] Guido Harper PA-C Unavailable [phone] Celestine Vargas MD Primary Care Provider [phone] May Reynoso MD Unavailable [phone] Encounter Details Date Type Department Care Team Description 02/06/2005 Orders Only Medical [address] [place] [address] [facility] [place] [address] [place] [address] ROUTINE GENERAL MEDICAL EXAMINATION AT A HEALTH [...] EDT Routine General Medical Examination At A [facility] CHG ANTINUCLEAR ANTIBODIES CONNER Routine 02/06/2005 12:01 PM EDT Routine General Medical Examination At A Health Care Facility CHG SEDIMENTATION RATE RBC NON-AUTOMATED Routine 02/06/2005 12:01 PM EDT Routine General Medical Examination At A Health Care Facility CHG ASSAY OF BLOOD/URIC ACID Routine 02/06/2005 12:01 PM EDT Routine General Medical Examination At A Health Care Facility documented in this encounter Results * CBC WITHOUT DIFF (02/06/2005 12:01 PM EDT) WHITE BLOOD COUNT 6.7 4.8 - 10.8 x10-3 [facility] RED BLOOD COUNT 4.5 3.8 - 4.8 x10-6 [facility] Hemoglobin 13.5 12.0 - 15.0 g/dL [facility] Hematocrit 39.7 36 - 46 % [facility] MEAN CORPUSCULAR VOLUME 89.2 79 - 98 fl [facility] HEMOGLOBIN 30.3 27 - 32 pg [facility] HGB CONC 34.0 32 - 37 g/dl [facility] RED CELL DISTRIBUTION WIDTH 13.3 11 - 15 % [facility] PLT COUNT 219 130 - 400 x10-3 [facility] 02/06/2005 12:0 1 PM EDT 02/06/2005 12:02 PM EDT Narrative [facility] - 02/06/2005 3:57 PM EDT Specify:->ANTI-NUCLEAR AB PROFILE [facility] [employer] * (ABNORMAL) BASIC METABOLIC PANEL (02/06/2005 12:01 PM EDT) Pathologist [facility] GLUCOSE 72 70 - 110 mg/dL [facility] Blood Urea Nitrogen 10 5 - 25 mg/dL [facility] creatinine 0.6(L) 0.7 - 1.5 mg/dL [facility] Sodium 139 133 - 145 mEq/L [facility] Potassium 4.1 3.5 - 5.2 mEq/L [facility] Chloride 105 96 - 108 mEq/L [facility] CARBON DIOXIDE (CO2) 25.9 21.0 - 32.0 mEq/L [facility] CALCIUM 9.4 8.5 - 10.5 mg/dL [facility] 02/06/2005 12:0 1 PM EDT 02/06/2005 12:02 PM EDT Narrative [facility] - 02/06/2005 4:51 PM EDT Specify:->ANTI-NUCLEAR AB PROFILE [facility] [employer] [facility] Performing Organization Address [facility]/ZIP Co de Phone Number [facility] * RHEUMATOID FACTOR ASSAY (02/06/2005 12:01 PM EDT) Pathologist [facility] RHEUMATOID FACTOR <10 <10 IU/ml [facility] 02/06/2005 12:0 1 PM EDT 02/06/2005 12:02 PM EDT Narrative [facility] - 02/07/2005 1:00 PM EDT Specify:->ANTI-NUCLEAR AB PROFILE [facility] * ANTINUCLEAR ANTIBODIES, ASSAY (02/06/2005 12:01 PM EDT) ANTI-NUCLEAR ANTIBODY SCREEN NEGATIVE NEGATIVE [facility] Comment: CONNER test should be ordered only if a clinical evidence ofSLE or other rheumatic condition exists. CONNER test shouldnot be used for random screening for SLE. Reviewed by Dr. Mcgovern 02/06/2005 12:0 1 PM EDT 02/06/2005 12:02 PM EDT Narrative [facility] - 02/09/2005 3:05 PM EDT Specify:->ANTI-NUCLEAR AB PROFILE [facility] * RBC SEDIMENTATION RATE, NON-AUTO (02/06/2005 12:01 PM EDT) ERYTHROCYTE SEDIMENTATION RATE 5 0 - 20 mm/hr [facility] 02/06/2005 12:0 1 PM EDT 02/06/2005 12:02 PM EDT Narrative [facility] - 02/06/2005 6:12 PM EDT Specify:->ANTI-NUCLEAR AB PROFILE [facility] Performing Organization Address City/[facility]/ZIP Co de Phone Number [facility] * URIC ACID (02/06/2005 12:01 PM EDT) Uric Acid 5.5 2.1 - 6.2 mg/dL [facility] 02/06/2005 12:0 1 PM EDT 02/06/2005 12:02 PM EDT Narrative [facility] - 02/06/2005 4:51 PM EDT Specify:->ANTI-NUCLEAR AB PROFILE [employer] [facility] Performing Organization Address City/[facility]/ZIP Co de Phone Number [facility] documented in this encounter Visit Diagnoses Diagnosis Routine general medical examination at a health care facility- Primary documented in this encounter Care Teams Seasonal Customer Service Associate Relationship Specialty Start Date End Date Shashi Sharma MD PCP - General 02/29/08 07/25/14 Elvia Silveira MD [address] [place] [address] PCP - General 01/12/05 02/28/08 Scar Otto MD [address] [place] [address] PCP - General Internal Medicine 09/18/14 04/30/15 Liliana Garibay Daniella [address] [place] [address] PCP - General Internal Medicine 05/01/15 06/26/15 Aung Thompson MD [address] [place] [address] PCP - General Internal Medicine 06/27/15 05/20/16 Samina Canales MD [address] [place] [address] PCP - General Internal Medicine 05/21/16 10/11/18 Gissell Hernandez MD [address] [place] [address] PCP - General Internal Medicine 10/12/18 08/19/21 Ata Welch MD [address] [place] [address] PCP - General Internal Medicine 08/20/21 05/06/22 Celestine Vargas MD [address] [place] [address] PCP - General Internal Medicine 05/07/22 Iva Garcia PA-C [address] [address] Specialist Neurosurgery 12/05/21 Guido Harper PA-C [address] [address] Specialist Neurosurgery 01/15/22 May Reynoso MD [address] [address] Surgeon Neurosurgery 03/26/23 documented as of this encounter
--- OUTSIDE RECORDS SUMMARY | 2025-07-01 16:45 | XMS_ITS | Encounter Summary ---
Author Organization [facility] Prior to 05/26/2024 Address [address] [place] [address] Care Team Providers Care Direct Mail Manager Name Role Phone Iva Garcia PA-C Unavailable Guido Harper PA-C Unavailable Celestine Vargas MD Primary Care Provider May Reynoso MD Unavailable [phone] Encounter Details Date Type Department Care Team Description 07/16/2022 Telephone Gastroenterology [facility] [address] [place] [address] Vanita Chen MD [address] [place] [address] Social History Tobacco Use Types Packs/Day Years [...] on filedocumented in this encounter Care Teams Direct Mail Manager Relationship Specialty Start Date End Date Celestine Vargas MD [address] [place] [address] PCP - General Internal Medicine 05/07/22 Iva Garcia PA-C [address] [address] Specialist Neurosurgery 12/05/21 Guido Harper PA-C [address] [address] Specialist Neurosurgery 01/15/22 May Reynoso MD [address] [address] Surgeon Neurosurgery 03/26/23 documented as of this encounter
--- OUTSIDE RECORDS SUMMARY | 2025-07-01 16:45 | XMS_ITS | Encounter Summary ---
Author Organization [facility] Prior to 05/26/[facility]24 Address [address] [place] [address] Care Team Providers Care Mechanical Tech Name Role Phone Iva Garcia PA-C Unavailable Guido Harper PA-C Unavailable Celestine Vargas MD Primary Care Provider [phone] May Reynoso MD Unavailable [phone] Encounter Details Date Type Department Care Team Description 09/08/2023 Telephone Gastroenterology - [address] [place] [address] Farshad Dixon PA-C Social History [...] * Telephone Encounter - Kassandra Lobato - 09/08/2023 9:34 AM EST We found sooner appt. Booked Barium Swallow at [facility] for patient on September 30 at 8:15am w/ arrival at 8am. Called the patient to notify of appointment details, including nothing to eat/drink after midnight. I also mailed an appointment letter. Order has been faxed to [phone]. * Telephone Encounter - Kassandra Lobato - 09/08/2023 9:28 AM EST Booked Barium Swallow at [address] [place] [address] for patient on November 03 at 7:45am w/ arrival at 7:20am.Called the patient to notify of appointment details, including nothing to eat/drink after midnight.I also mailed an appointment letter. Order has been faxed to [phone]. * Telephone Encounter - Farshad Dixon PA-C - 09/08/2023 8:08 AM EST Received a message from PCP that had a telehealth visit with the patient and she was wondering whenshe would be having the barium swallow. Please check on the date and contact her with that date. Thank you documented in this encounter Plan of Treatment Not on file documented as of this encounter Visit Diagnoses Not on filedocumented in this encounter Care Teams Mechanical Tech Relationship Specialty Start Date End Date Celestine Vargas MD [address] [place] [address] PCP - General Internal Medicine 05/07/22 Iva Garcia PA-C [address] [address] Specialist Neurosurgery 12/05/21 Guido Harper PA-C [address] [address] Specialist Neurosurgery 01/15/22 May Reynoso MD [address] [address] Surgeon Neurosurgery 03/26/23 documented as of this encounter
--- OUTSIDE RECORDS SUMMARY | 2025-07-01 16:45 | XMS_ITS | Encounter Summary ---
Author Organization [facility] Prior to 05/26/2024 Address [address] [place] [address] Care Team Providers Care Locum Tenens Psychiatrist Name Role Phone Ata Welch MD Primary Care Provider [phone] Iva Garcia PA-C Unavailable Guido Harper PA-C Unavailable Celestine Vargas MD Primary Care Provider [phone] May Reynoso MD Unavailable [phone] Reason for Visit * Reason Comments E-prescribe Rx Request Encounter Details Date Type Department Care Team Description 10/05/2021 Refill Pulmonology - [place] 175 [facility] [address] [place] [phone] Althea Norwood APRN 175 [facility] [address] [place] [address] E-prescribe Rx Request Social History Tobacco Use [...] have Coronavirus / COVID-19? No / Unsure 10/07/2021 12:46 PM EDT documented as of this encounter Plan of Treatment Not on file documented as of this encounter Visit Diagnoses Diagnosis Moderate persistent asthma with acute exacerbation documented in this encounter Care Teams Locum Tenens Psychiatrist Relationship Specialty Start Date End Date Ata Welch MD [address] [place] [address] PCP - General Internal Medicine 08/20/21 05/06/22 Celestine Vargas MD [address] [place] [address] PCP - General Internal Medicine 05/07/22 Iva Garcia PA-C [address] [address] Specialist Neurosurgery 12/05/21 Guido Harper PA-C [address] [address] Specialist Neurosurgery 01/15/22 May Reynoso MD [address] [address] Surgeon Neurosurgery 03/26/23 documented as of this encounter
--- OUTSIDE RECORDS SUMMARY | 2025-07-01 16:45 | XMS_ITS | Encounter Summary ---
Author Organization [facility] Prior to 05/26/2024 Address [address] [place] [address] Care Team Providers Care Sports Internship Name Role Phone Shashi Sharma MD Primary Care Provider Becky Scar Middleton MD Primary Care Provider Unavail able Daniella Zuleta DO Primary Care Pro vider Unavailable Aung Thompson MD Primary Care Provider Samina Canales MD Primary Care Provider Unavaila Gissell Abarca MD Primary Care Provider Unavail able Ata Welch MD Primary Care Provider [phone] Iva Garcia-C Unavailable [phone] Guido Harper PA-C Unavailable [phone] Celestine Vargas MD Primary Care Provider [phone] May Reynoso MD Unavailable [phone] Encounter Details Date Type Department Care Team Description 06/06/2013 Hospital Medical Records [address] [place] [address] Shabnam Chacon Social History Tobacco Use Types Packs/Day Years [...] on filedocumented in this encounter Care Teams Sports Internship Relationship Specialty Start Date End Date Shashi Sharma MD PCP - General 02/29/08 07/25/14 Scar Otto MD PCP - General Internal Medicine 09/18/14 04/30/15 Daniella Zuleta DO PCP - General Internal Medicine 05/01/15 06/26/15 Aung Thompson MD [address] [place] [address] PCP - General Internal Medicine 06/27/15 05/20/16 Samina Canales MD [address] [place] [address] PCP - General Internal Medicine 05/21/16 10/11/18 Gissell Hernandez MD [address] [place] [address] PCP - General Internal Medicine 10/12/18 08/19/21 Ata Welch MD [address] [place] [address] PCP - General Internal Medicine 08/20/21 05/06/22 Celestine Vargas MD [address] [place] [address] PCP - General Internal Medicine 05/07/22 Iva Garcia PA-C [address] [place] [address] Specialist Neurosurgery 12/05/21 Guido Harper PA-C [address] [place] [address] Specialist Neurosurgery 01/15/22 May Reynoso MD [address] [address] Surgeon Neurosurgery 03/26/23 documented as of this encounter
--- OUTSIDE RECORDS SUMMARY | 2025-07-01 16:45 | XMS_ITS | Clinical Summary ---
Author Organization [facility] Prior to 05/26/2024 Address [address] [place] [address] Care Team Providers Care Cost Estimating Clerk Name Role Phone Iva Garcia PA-C Unavailable Guido Harper PA-C Unavailable Celestine Vargas MD Primary Care Provider May Reynoso MD Unavailable [phone] Allergies Active Allergy Reactions Severity Noted Date Comments Sulfamethoxazole W-Trimethoprim Hives/Urticaria High 04/16/2011 Seasonal Allergies 12/19/2010 Sulfa Drugs 03/05/2020 Medications Medication Sig Dispensed Refills Start Date End Date Status SPACER DEVICE-ADULT Use with inhaler 1 Device 3 07/24/2015 Active VIIBRYD 20 MG Tab TAKE 1 TABLET BY MOUTH EVERY MORNING 0 02/23/2020 Active Vilazodone HCl 10 MG Tab Take by mouth daily. Taken with 20 mg tablet 0 Active trazodone (DESYREL) 50 MG tablet TAKE 1-2 TABLETS BY MOUTH AT BEDTIME NEEDED FOR INSOMNIA 0 05/26/2022 Active Diclofenac Sodium 1 % Gel Apply 1 Applicator topically 2 times daily as needed (left elbow pain). 100 g 1 07/10/2022 Active lorazepam (ATIVAN) 0.5 MG tablet TAKE 1 TABLET BY MOUTH ONCE A DAY NEEDED FOR SEVERE ANXIETY. UP TO 12 TIMES PER MONTH. 0 11/13/2022 Active loratadine (Claritin) 10 MG tabletIndications:M oderate persistent asthma with acute exacerbation,Allerg ic rhinitis, unspecified seasonality, unspecified trigger Take 1 Tablet by mouth daily. 30 Tablet 2 06/14/2023 Active omeprazole (PRILOSEC) 40 MG capsule Take 1 Capsule by mouth daily. Take in am on empty stomach, wait 30 mins and then eat to activate the medication 30 Capsule 11 09/07/2023 Active albuterol (PROVENTIL) (2.5 MG/3ML) 0.083% nebulizer solutionIndications :Moderate persistent asthma with acute exacerbation,Allerg ic rhinitis, unspecified seasonality, unspecified trigger,Former smoker,Anxiety,PND (post-nasal drip) Take 1 Vial by nebulization every 6 hours as needed for Wheezing, Shortness of Breath or Cough. 300 mL 0 09/14/2023 Active Symbicort 160-4.5 MCG/ACT inhalerIndications: Moderate persistent asthma with acute exacerbation Inhale 2 Puffs into the lungs every 12 hours. This medication has inhaler steroid: Rinse mouth with water and expectorate after each dose to prevent oral/esophageal candidiasis or fungal infection. 36 g 3 09/14/2023 Active Ventolin HFA 108 (90 Base) MCG/ACT Aero SolnIndications:Mod erate persistent asthma with acute exacerbation Inhale 2 Puffs into the lungs 4 times daily as needed for Wheezing or Shortness of Breath. 54 g 1 09/14/2023 Active Cetirizine HCl (ZyrTEC Allergy) 10 MG CapIndications:Mode rate persistent asthma with acute exacerbation,Allerg ic rhinitis, unspecified seasonality, unspecified trigger Take 10 mg by mouth daily. 30 Capsule 3 09/14/2023 Active azelastine (ASTELIN) 0.1 % nasal sprayIndications:Mo derate persistent asthma with acute exacerbation,Allerg ic rhinitis, unspecified seasonality, unspecified trigger 2 Sprays by Each Nare route 2 times daily. Use in each nostril as directed 30 mL 5 09/14/2023 Active levocetirizine (XYZAL) 5 MG tablet Take 1 Tablet by mouth daily as needed for Allergies. 30 Tablet 2 10/06/2023 Active fluticasone 50 MCG/ACT nasal sprayIndications:Al lergic rhinitis, unspecified seasonality, unspecified trigger INSTILL 2 SPRAYS IN EACH NOSTRILS DAILY FOR 3-4 WEEKS, THEN DOWN TO 1 SPRAY IN EACH NOSTRIL DAILY. 48 mL 1 11/29/2023 Active Active Problems Problem Noted Date Mass of right breast 01/05/2024 Last Assessment & Plan: Subtle. Will send for imaging. If normal, will just follow clinically. I suspect it is a cyst or fatty tissue. Dysphagia 09/07/2023 Gastroesophageal reflux disease 09/07/19 24 Neck pain 03/26/2023 Last Assessment & Plan: Ms. Walden is [...] not getting better. Cervical disc herniation 12/05/2021 Last Assessment & Plan: Ms. Walden is [...] Lu in 2-3 months. Obstructive sleep apnea mild AHI 6 11/06 Overview: [facility] Home sleep test 11/03/2021; weight 180; BMI 34. AHI 6. 1 central apneas and 34 hypopneas. Average oxygen saturation 95% with oxygen monserrat 86%. Obstructive sleep apnea-mild with mostly hypopneas and without nocturnal hypoxemia based on 2021 home sleep test. Prediabetes 09/12/2021 Irregular menses 04/09/2021 Last Assessment & Plan: Today with reviewed [...] months for assessment of satisfaction with medication. General counseling and advice for contra ceptive management 04/09/2021 Last Assessment & Plan: Patient not interested in any form of contraception at this time. Encouraged to use condoms for and STD prevention. Will discuss further at upcoming annual exam. COVID-19 virus infection 06/29/2020 Former smoker 03/05/2020 PND (post-nasal drip) 03/05/2020 Depression 11/28/2012 Obesity 01/16/2011 Asthma 11/11/2009 Former tobacco use 07/16/2009 Overview: December 2019 Hypercholesteremia 12/05/2007 Allergic rhinitis 11/28/2007 Anxiety 10/19/2007 Dysplasia of cervix 12/22/2006 Resolved Problems Problem Noted Date Resolved Date Lab test negative for COVID-19 virus 05/19/2020 06/29/2020 Gestational diabetes mellitus in third trimester 09/04/2015 12/17/2015 Low-lying placenta 07/01/2015 12/17/2015 Overview: 08/20/2015 - Resolved Supervision of other normal 04/22/2015 12/17/2015 Overview: 10/17/15 ZIKA SCREEN NEGATIVE Anatomy scan wnl except for Low Lying placenta. --no follow up lesley, should have scan 28-32 wks to document resolution 1. [facility] site: [place] 2. Delivery site: [facility] 3. Dating criteria: LMP only 3. Blood type: A+ 4. Genetic screening: Date: Result: 5. GBS: Date: 6. FOB name: [place] 7. Plans A. Epidural or other pain management - B. Labor support identified - C. Tdap - Date: D. Breast or Bottle feed: bottle E. Baby's name - F. Circumcision - [facility] update Gestational diabetes mellitus 04/17/2013 Supervision of other normal 11/28/2012 07/18/2013 Overview: FOB Jomar (BF) involved[facility] Hx depression. It's a boy [facility] update Immunizations Name Administration Dates Next Due COVID-19 (Pfizer) 10/13/2020,09/22/2020 COVID-19 (Pfizer) Pt Reported 05/05/2021 HPV (Gardasil) 05/10/2006 07/09/2006 Influenza (> 6 Months) 05/11/2012,2010,05/19/2010,03/26,06/08/2008 Influenza (>6 Months) Split Preservative Free 05/15/2013 Influenza H1N1 Pandemic Flu Vaccine 07/16/2009 Pneumoccoccal(Adult) Polysac charide PPSV23 04/11/2020 Tdap 10/17/2015,05/15/2013,03/12/2010 Family History Medical History Relation Name Comments Cervical Cancer Aunt Colon Polyps Father mid 60s Diabetes Father htn CA Breast Maternal Grandmother Hypertension Mother ID Paternal Grandfather Cancer of the Breast Paternal Grandmother diabetes Relation Name Status Comments Aunt Father Maternal Grandfather Maternal Grandmother Mother Alive Paternal Grandfather Paternal Grandmother Social History Tobacco Use Types Packs/Day Years Used Date Smoking Tobacco: Former Cigarettes 0.5 Smokeless Tobacco: Never Tobacco Cessation:Counseling Given: Not Answered Alcohol Use Standard Drinks/Week Comments No 0 (1 standard drink = 0.6 oz pur e alcohol) Sex Assigned at Date Recorded Not on file Job Start Date Occupation Industry Not on file Not on file Not on file Last Filed Vital Signs Vital Sign Reading Time Taken Comments Blood Pressure 100/62 05/12/2024 9:26 AM EDT Pulse 70 05/12/2024 9:26 AM EDT Temperature 36.1 C (97 F) 05/12/2024 9:26 AM EDT Respiratory Rate 15 05/12/2024 9:26 AM EDT Oxygen Saturation 97% 05/12/2024 9:26 AM EDT Inhaled Oxygen Concentration - - Weight 73.9 kg (163 lb) 05/12/2024 9:26 AM EDT Height 154.9 cm (5' 1 ) 05/12/2024 9:26 AM EDT Body Mass Index 30.8 05/12/2024 9:26 AM EDT Plan of Treatment Health Maintenance Due Date Last Done Comments BMI CHECK/ADVISE 07/26/2024 03/10/2024, , 09/14/2023, Additional history exists DEPRESSION SCREENING/FOLLOWUP 07/26/2024, 04/03/2022, 01/07/2016, Additional history exists SOCIAL NEEDS SCREENING 07/26/2024 04/11/2020 (Comple manny) BASELINE HEALTH EXAM 40-64 03/19/202503/19, 07/29/2022, 07/10/2022, Additional history exists Covid-19 Vaccine (4 - 2022-2 4 season) 2025 05/05/2021, 10/13/2020, 09/22/2020 INFLUENZA (#1) 2025 05/15/2013, 04/25, 05/18/2011, Additional history exists MAMMOGRAM 05/25/2025 05/25/2024, 04/26, 05/06/2023, Additional history exists DTAP/TDAP/TD (4 - Td or Tdap) 10/16/2025, 05/15/2013, 03/12/2010 COLON CANCER SCREENING 05/20/2026 05/20/2023 CHOLESTEROL SCREENING 04/03/2027 04/03/2022 , 09/11/2021, 03/01/2020, Additional history exists CERVICAL CANCER SCREENING 12/24/20272022, 05/01/2015, 04/25/2012, Additional history exists PNEUMOCOCCAL VACCINE FOR HIG H RISK PATIENTS (#2) 2046 04/11/2020, 04/11/2020 (Refused) Care Teams Cost Estimating Clerk Relationship Specialty Start Date End Date Celestine Vargas MD [address] [place] [address] PCP - General Internal Medicine 05/07/22 Iva Garcia PA-C [address] [address] Specialist Neurosurgery 12/05/21 Guido Harper PA-C [address] [address] Specialist Neurosurgery 01/15/22 May Reynoso MD [address] [address] Surgeon Neurosurgery 03/26/23
--- OUTSIDE RECORDS SUMMARY | 2025-07-01 16:45 | XMS_ITS | Encounter Summary ---
Author Organization [email or web address] [facility] Prior to 05/26/2024 Address [address] [place] [address] Care Team Providers Care Floor Sanding Machine Operator Name Role Phone Ata Welch MD Primary Care Provider Iva Garcia PA-C Unavailable Guido Harper PA-C Unavailable Celestine Vargas MD Primary Care Provider [phone] May Reynoso MD Unavailable [phone] Reason for Visit * Reason Onset Date Comments Medication 10/15/2021 Encounter Details Date Type Department Care Team Description 10/15/2021 Refill Gastroenterology [address] [phone] Natali Nguyen MD Medication Social History Tobacco Use Types Packs/Day Years [...] on filedocumented in this encounter Care Teams Floor Sanding Machine Operator Relationship Specialty Start Date End Date Ata Welch MD [address] [place] [address] PCP - General Internal Medicine 08/20/21 05/06/22 Celestine Vargas MD [address] [place] [address] PCP - General Internal Medicine 05/07/22 Iva Garcia PA-C [address] [address] Specialist Neurosurgery 12/05/21 Guido Harper PA-C [address] [address] Specialist Neurosurgery 01/15/22 May Reynoso MD [address] [address] Surgeon Neurosurgery 03/26/23 documented as of this encounter
--- OUTSIDE RECORDS SUMMARY | 2025-07-01 16:45 | XMS_ITS | Encounter Summary ---
Author Organization [facility] [facility] Prior to 05/26/2024 Address [address] [place] [address] Care Team Providers Care Script Manager Name Role Phone Ata Welch MD Primary Care Provider [phone] Iva Garcia PA-C Unavailable Guido Harper PA-C Unavailable Celestine Vargas MD Primary Care Provider [phone] May Reynoso MD Unavailable [phone] Encounter Details Date Type Department Care Team Description 11/07/2021 [facility] Medical Records [address] [place] [address] Pillo Morillo PA-C 175 [facility] [address] [place], [place] [phone] Social History Tobacco Use Types Packs/Day Years [...] on filedocumented in this encounter Care Teams Script Manager Relationship Specialty Start Date End Date Ata Welch MD [address] [place] [address] PCP - General Internal Medicine 08/20/21 05/06/22 Celestine Vargas MD [address] [place] [address] PCP - General Internal Medicine 05/07/22 Iva Garcia PA-C [address] [address] Specialist Neurosurgery 12/05/21 Guido Harper PA-C [address] [address] Specialist Neurosurgery 01/15/22 May Reynoso MD [address] [address] Surgeon Neurosurgery 03/26/23 documented as of this encounter
--- OUTSIDE RECORDS SUMMARY | 2025-07-01 16:45 | XMS_ITS | Encounter Summary ---
Author Organization [facility] Prior to 05/26/2024 Address [address] [place] [address] Care Team Providers Care Surgical First Assistant Name Role Phone Ata Welch MD Primary Care Provider Iva Garcia PA-C Unavailable Guido Harper PA-C Unavailable [phone] Celestine Vargas MD Primary Care Provider [phone] May Reynoso MD Unavailable [phone] Encounter Details Date Type Department Care Team Description 01/14/2022 Pt. Non Urgent Medic al Question Adult Medicine [address] [address] Cinthia Tracy PA Social History Tobacco Use [...] on filedocumented in this encounter Care Teams Surgical First Assistant Relationship Specialty Start Date End Date Ata Welch MD [address] [place] [address] PCP - General Internal Medicine 08/20/21 05/06/22 Celestine Vargas MD [address] [place] [address] PCP - General Internal Medicine 05/07/22 Iva Garcia PA-C [address] [address] Specialist Neurosurgery 12/05/21 Guido Harper PA-C [address] [address] Specialist Neurosurgery 01/15/22 May Reynoso MD [address] [address] Surgeon Neurosurgery 03/26/23 documented as of this encounter
--- OUTSIDE RECORDS SUMMARY | 2025-07-01 16:45 | XMS_ITS | Encounter Summary ---
Author Organization [facility] Prior to 05/26/2024 Address [address] [place] [address] Care Team Providers Care Research Program Coordinator Name Role Phone Shashi Sharma MD Primary Care Provider Becky Scar Middleton MD Primary Care Provider Unavail able Daniella Zuleta DO Primary Care Pro vider Unavailable Aung Thompson MD Primary Care Provider Samina Canales MD Primary Care Provider Unavaila Gissell Abarca MD Primary Care Provider Unavail able Ata Welch MD Primary Care Provider [phone] Iva Garcia-C Unavailable [phone] Guido Harper PA-C Unavailable Celestine Vargas MD Primary Care Provider [phone] May Reynoso MD Unavailable [phone] Reason for Visit * Reason Onset Date Comments medication problems 12/04/2011 Encounter Details Date Type Department Care Team Description 12/04/2011 Telephone Adult [address] [phone] Shashi Sharma MD medication problems Social History Tobacco Use Types Packs/Day Years Used Date Smoking Tobacco: Every Day Cigarettes Smokeless Tobacco: Never Comments:less than 1/2 ppd ( 08/24/11) Alcohol Use Standard Drinks/Week Comments Yes 0 (1 standard drink = 0.6 oz pur e alcohol) occas Sex Assigned at Date Recorded Not on file Job Start Date Occupation Industry Not on file Not on file Not on file documented as of this encounter Miscellaneous Notes * Telephone Encounter - Michelle Reed M.A. - 12/04/2011 2:24 PM EDT That's because it hasnt been faxed yet original message still not closed * Telephone Encounter - Altagracia Aranda - 12/04/2011 1:49 PM EDT Pharmacy has not received rx for lorazepam, please RESEND DENISHA documented in this encounter Plan of Treatment Not on file documented as of this encounter Visit Diagnoses Diagnosis Anxiety- Primary Anxiety state, unspecified documented in this encounter Care Teams Research Program Coordinator Relationship Specialty Start Date End Date Shashi Sharma MD PCP - General 02/29/08 07/25/14 Scar Otto MD PCP - General Internal Medicine 09/18/14 04/30/15 Daniella Zuleta DO PCP - General Internal Medicine 05/01/15 06/26/15 Aung Thompson MD [address] [place] [address] PCP - General Internal Medicine 06/27/15 05/20/16 Samina Canales MD [address] [place] [address] PCP - General Internal Medicine 05/21/16 10/11/18 Gissell Hernandez MD [address] [place] [address] PCP - General Internal Medicine 10/12/18 08/19/21 Ata Welch MD [address] [place] [address] PCP - General Internal Medicine 08/20/21 05/06/22 Celestine Vargas MD [address] [place] [address] PCP - General Internal Medicine 05/07/22 Iva Garcia PA-C [address] [address] Specialist Neurosurgery 12/05/21 Guido Harper PA-C [address] [address] Specialist Neurosurgery 01/15/22 May Reynoso MD [address] [address] Surgeon Neurosurgery 03/26/23 documented as of this encounter
--- OUTSIDE RECORDS SUMMARY | 2025-07-01 16:45 | XMS_ITS | Clinical Summary ---
Author Organization [facility] Prior to 12/23/24 Address [address] [place] [address] Care Team Providers Care Community Leader Name Role Phone Unavailable Primary Care Provider [...] Self [address] [place] [address]
--- OUTSIDE RECORDS SUMMARY | 2025-07-01 16:45 | XMS_ITS | Encounter Summary ---
Author Organization [facility] Prior to 05/26/2024 Address [address] [place] [address] Care Team Providers Care Associate Medical Director Name Role Phone Ata Welch MD Primary Care Provider [phone] Iva Garcia PA-C Unavailable Guido Harper PA-C Unavailable Celestine Vargas MD Primary Care Provider [phone] May Reynoso MD Unavailable [phone] Reason for Visit * Reason Comments E-prescribe Rx Request Encounter Details Date Type Department Care Team Description 10/29/2021 Refill Pulmonology - [place] 175 [facility] [address] [place] [phone] Althea Norwood APRN 175 [facility] [address] [place] [address] E-prescribe Rx Request Social History [...] exacerbation documented in this encounter Care Teams Associate Medical Director Relationship Specialty Start Date End Date Ata Welch MD [address] [place] [address] PCP - General Internal Medicine 08/20/21 05/06/22 Celestine Vargas MD [address] [place] [address] PCP - General Internal Medicine 05/07/22 Iva Garcia PA-C [address] [address] Specialist Neurosurgery 12/05/21 Guido Harper PA-C [address] [address] Specialist Neurosurgery 01/15/22 May Reynoso MD [address] [address] Surgeon Neurosurgery 03/26/23 documented as of this encounter
--- OUTSIDE RECORDS SUMMARY | 2025-07-01 16:45 | XMS_ITS | Encounter Summary ---
Author Organization [facility] Prior to 05/26/2024 Address [address] [place] [address] Care Team Providers Care Operation Research Analyst Name Role Phone Iva Garcia PA-C Unavailable Guido Harper PA-C Unavailable [phone] Celestine Vargas MD Primary Care Provider [phone] May Reynoso MD Unavailable [phone] Encounter Details Date Type Department Care Team Description 08/11/2023 Telephone Gastroenterology - [place] 175 [facility] [address] [place] [address] Farshad Dixon PA-C Social History [...] AM EST Booked Barium Swallow at [address] [facility] for patient on September 30 at 8:15am w/ arrival at 8am. Called the patient to notify of appointment details, including nothing to eat/drink after midnight. I also mailed an appointment letter. Order has been faxed to [phone]. documented in this encounter Plan of Treatment Not on file documented as of this encounter Visit Diagnoses Not on filedocumented in this encounter Care Teams Operation Research Analyst Relationship Specialty Start Date End Date Celestine Vargas MD [address] [place] [address] PCP - General Internal Medicine 05/07/22 Iva Garcia PA-C [address] [address] Specialist Neurosurgery 12/05/21 Guido Harper PA-C [address] [address] Specialist Neurosurgery 01/15/22 May Reynoso MD [address] [address] Surgeon Neurosurgery 03/26/23 documented as of this encounter
--- OUTSIDE RECORDS SUMMARY | 2025-07-01 16:45 | XMS_ITS | Encounter Summary ---
Author Organization [facility] Prior to 05/26/2024 Address [address] [place] [address] Care Team Providers Care Relay Repairer Name Role Phone Iva Garcia PA-C Unavailable Guido Harper PA-C Unavailable Celestine Vargas MD Primary Care Provider May Reynoso MD Unavailable [phone] Encounter Details Date Type Department Care Team Description 03/17/2024 Telephone Adult Medicine [address] [address] Celestine Vargas MD [address] [place] [address] Social History Tobacco Use Types Packs/Day Years [...] on filedocumented in this encounter Care Teams Relay Repairer Relationship Specialty Start Date End Date Celestine Vargas MD [address] [place] [id number] PCP - General Internal Medicine 10/13/22 Iva Garcia PA-C [address] [phone] Specialist Neurosurgery 12/05/21 Guido Harper PA-C [address] [phone] Specialist Neurosurgery 01/15/22 May Reynoso MD [address] [phone] Surgeon Neurosurgery 03/26/23 documented as of this encounter
--- OUTSIDE RECORDS SUMMARY | 2025-07-01 16:45 | XMS_ITS | Encounter Summary ---
Author Organization [facility] Prior to 05/26/2024 Address [address] [place] [address] Care Team Providers Care Elementary Librarian Name Role Phone Ata Welch MD Primary Care Provider Iva Garcia PA-C Unavailable Guido Harper PA-C Unavailable Celestine Vargas MD Primary Care Provider [phone] May Reynoso MD Unavailable [phone] Reason for Visit * Reason Onset Date Comments Surgery (Schedule) 10/14/2021 Encounter Details Date Type Department Care Team Description 10/14/2021 Telephone [facility] Neurosurgery [address] [place] [address] Bipin Lu MD, PHD Surgery [...] Miscellaneous Notes * Telephone Encounter - Irene Franky - 10/14/2021 2:45 PM EDT Patient left message with answering serive regarding status of surgery date. Please call [phone] documented in this encounter Plan of Treatment Not on file documented as of this encounter Visit Diagnoses Not on filedocumented in this encounter Care Teams Elementary Librarian Relationship Specialty Start Date End Date Ata Welch MD [address] [place] [address] PCP - General Internal Medicine 08/20/21 05/06/22 Celestine Vargas MD [address] [place] [address] PCP - General Internal Medicine 05/07/22 Iva Garcia PA-C [address] [address] Specialist Neurosurgery 12/05/21 Guido Harper PA-C [address] [address] Specialist Neurosurgery 01/15/22 May Reynoso MD [address] [address] Surgeon Neurosurgery 03/26/23 documented as of this encounter
--- OUTSIDE RECORDS SUMMARY | 2025-07-01 16:45 | XMS_ITS | Encounter Summary ---
Author Organization [facility] Prior to 05/26/2024 Address [address] [place] [address] Care Team Providers Care Dial Printer Name Role Phone Shashi Ng MD Primary Care Provider Becky Scar [place] MD Primary Care Provider Unavail able Daniella Zuleta DO Primary Care Pro vider Unavailable Aung Thompson MD Primary Care Provider Samina Canales MD Primary Care Provider Unavaila Gissell Abarca MD Primary Care Provider Unavail able Ata Welch MD Primary Care Provider [phone] Iva Garcia PA-C Unavailable [phone] Guido Harper PA-C Unavailable [phone] Celestine Vargas MD Primary Care Provider [phone] May Reynoso MD Unavailable [phone] Encounter Details Date Type Department Care Team Description 02/17/2011 Refill Adult Medicine [address] [address] Sahshi Ng MD Social History Tobacco Use Types [...] Telephone Encounter - Michelle Reed M.A. - 02/17/2011 8:44 AM EDT Controlled substance contract and last issue date of medication reviewed. Patient is due for medication. * Telephone Encounter - Michelle Reed M.A. - 02/17/2011 8:38 AM EDTFrom: JOANNA PRUITT To: Shashi Ng Sent: WedFeb 17, 2011 8:32 AM Subject: Medication Renewal Request Original authorizing provider: MD Joanna Jarquin would like a refill of the following medications: lorazepam (ATIVAN) 0.5 MG tablet [Shashi Ng MD] ALBUTEROL SULFATE (PROAIR HFA) 108 (90 BASE) MCG/ACT AERS [Shashi Ng MD] Preferred pharmacy: [id number] Comment: Medication renewals requested in this message routed to other providers: documented in this encounter Plan of Treatment Not on file documented as of this encounter Visit Diagnoses Diagnosis Asthma Unspecified asthma documented in this encounter Care Teams Dial Printer Relationship Specialty Start Date End Date Shashi Ng MD PCP - General 02/29/08 07/25/14 Scar Otto MD PCP - General Internal Medicine 09/18/14 04/30/15 Daniella Zuleta DO PCP - General Internal Medicine 05/01/15 06/26/15 Aung Thompson MD [address] [place] [address] PCP - General Internal Medicine 06/27/15 05/20/16 Samina Canales MD [address] [place] [address] PCP - General Internal Medicine 05/21/16 10/11/18 Gissell Hernandez MD [address] [place] [address] PCP - General Internal Medicine 10/12/18 08/19/21 tAa Welch MD [address] [place] [address] PCP - General Internal Medicine 08/20/21 05/06/22 Celestine Vargas MD [address] [place] [address] PCP - General Internal Medicine 05/07/22 Iva Garcia PA-C [address] [place] [address] Specialist Neurosurgery 12/05/21 Guido Harper PA-C [address] [address] Specialist Neurosurgery 01/15/22 May Reynoso MD [address] [address] Surgeon Neurosurgery 03/26/23 documented as of this encounter
--- OUTSIDE RECORDS SUMMARY | 2025-07-01 16:45 | XMS_ITS | Encounter Summary ---
Author Organization [facility] Prior to 05/26/2024 Address [address] [place] [address] Care Team Providers Care Electronic Design Engineer Name Role Phone Ata Welch MD Primary Care Provider Iva Garcia PA-C Unavailable Guido Harper PA-C Unavailable Celestine Vargas MD Primary Care Provider May Reynoso MD Unavailable [phone] Encounter Details Date Type Department Care Team Description 10/16/2021 Release of Information Medical Records [address] [place] [id number] Abstract, Provider Social History Tobacco Use Types [...] filedocumented in this encounter Care Teams Electronic Design Engineer Relationship Specialty Start Date End Date Ata Welch MD [address] [place] [address] PCP - General Internal Medicine 08/20/21 05/06/22 Celestine Vargas MD [address] [place] [address] PCP - General Internal Medicine 05/07/22 Iva Garcia PA-C [address] [address] Specialist Neurosurgery 12/05/21 Guido Harper PA-C [address] [address] Specialist Neurosurgery 01/15/22 May Reynoso MD [address] [address] Surgeon Neurosurgery 03/26/23 documented as of this encounter
--- OUTSIDE RECORDS SUMMARY | 2025-07-01 16:45 | XMS_ITS | Encounter Summary ---
Author Organization [facility] Prior to 05/26/2024 Address [address] [place] [address] Care Team Providers Care Employment Attorney Name Role Phone Shashi Sharma MD Primary Care Provider Becky Scar [place] MD Primary Care Provider Unavail able Daniella Zuleta DO Primary Care Pro vider Unavailable Aung Thompson MD Primary Care Provider Samina Canales MD Primary Care Provider Unavaila Gissell Abarac MD Primary Care Provider Unavail able Ata Welch MD Primary Care Provider [phone] Iva Garcia PA-C Unavailable [phone] Guido Harper PA-C Unavailable [phone] Celestine Vargas MD Primary Care Provider [phone] May Reynoso MD Unavailable [phone] Encounter Details Date Type Department Care Team Description 03/16/2011 Refill Adult Medicine [address] [address] Shashi Sharma MD Social History Tobacco Use Types Packs/Day [...] on filedocumented in this encounter Care Teams Employment Attorney Relationship Specialty Start Date End Date Shashi Sharma MD PCP - General 02/29/08 07/25/14 Scar Otto MD PCP - General Internal Medicine 09/18/14 04/30/15 Daniella Zuleta DO PCP - General Internal Medicine 05/01/15 06/26/15 Aung Thompson MD [address] [place], [place] [id number] PCP - General Internal Medicine 06/27/15 05/20/16 Samina Canales MD [address] [place] [address] PCP - General Internal Medicine 05/21/16 10/11/18 Gissell Hernandez MD [address] [place], [place] [id number] PCP - General Internal Medicine 10/12/18 08/19/21 Ata Welch MD [address] [place] [address] PCP - General Internal Medicine 08/20/21 05/06/22 Celestine Vargas MD [address] [place] [address] PCP - General Internal Medicine 05/07/22 Iva Garcia PA-C [address] [address] Specialist Neurosurgery 12/05/21 Guido Harper PA-C [address] [address] Specialist Neurosurgery 01/15/22 May Reynoso MD [address] [address] Surgeon Neurosurgery 03/26/23 documented as of this encounter
--- OUTSIDE RECORDS SUMMARY | 2025-07-01 16:45 | XMS_ITS | Encounter Summary ---
Author Organization [facility] Prior to 05/26/2024 Address [address] [place] [address] Care Team Providers Care Superintendent Maintenance Name Role Phone Ata Welch MD Primary Care Provider Iva Garcia PA-C Unavailable [phone] Guido Harper PA-C Unavailable Celestine Vargas MD Primary Care Provider [phone] May Reynoso MD Unavailable [phone] Encounter Details Date Type Department Care Team Description 11/20/2021 [facility] Neurosurgery [address] [place] [id number] Bipin Lu MD, PHD Social History Tobacco [...] on filedocumented in this encounter Care Teams Superintendent Maintenance Relationship Specialty Start Date End Date Ata Welch MD [address] [place] [address] PCP - General Internal Medicine 08/20/21 05/06/22 Celestine Vargas MD [address] [place] [address] PCP - General Internal Medicine 05/07/22 Iva Garcia PA-C [address] [address] Specialist Neurosurgery 12/05/21 Guido Harper PA-C [address] [address] Specialist Neurosurgery 01/15/22 May Reynoso MD [address] [address] Surgeon Neurosurgery 03/26/23 documented as of this encounter
--- OUTSIDE RECORDS SUMMARY | 2025-07-01 16:45 | XMS_ITS | Encounter Summary ---
Author Organization [facility] Prior to 05/26/2024 Address [address] [place] [address] Care Team Providers Care Car Ferry Captain Name Role Phone Ata Welch MD Primary Care Provider Iva Garcia PA-C Unavailable Guido Harper PA-C Unavailable Celestine Vargas MD Primary Care Provider [phone] May Reynoso MD Unavailable [phone] Encounter Details Date Type Department Care Team Description 11/17/2021 [facility] Neurosurgery [address] [place] [phone] Bipin Lu MD, PHD Social History Tobacco [...] filedocumented in this encounter Care Teams Car Ferry Captain Relationship Specialty Start Date End Date Ata Welch MD [address] [place] [address] PCP - General Internal Medicine 08/20/21 05/06/22 Celestine Vargas MD [address] [place] [address] PCP - General Internal Medicine 05/07/22 Iva Garcia PA-C [address] [address] Specialist Neurosurgery 12/05/21 Guido Harper PA-C [address] [address] Specialist Neurosurgery 01/15/22 May Reynoso MD [address] [address] Surgeon Neurosurgery 03/26/23 documented as of this encounter
--- OUTSIDE RECORDS SUMMARY | 2025-07-01 16:45 | XMS_ITS | Encounter Summary ---
Author Organization [facility] Prior to 05/26/2024 Address [address] [place] [address] Care Team Providers Care Community Health Nurse Supervisor Name Role Phone Iva Garcia PA-C Unavailable Guido Harper PA-C Unavailable [phone] Celestine Vargas MD Primary Care Provider May Reynoso MD Unavailable [phone] Encounter Details Date Type Department Care Team Description 03/16/2024 Telephone Triage [address] [place] [address] Celestine Vargas MD [address] [place] [address] Social History Tobacco Use Types Packs/Day Years [...] on filedocumented in this encounter Care Teams Community Health Nurse Supervisor Relationship Specialty Start Date End Date Celestine Vargas MD [address] [place], [place] [id number] PCP - General Internal Medicine 05/07/22 Iva Garcia PA-C [address] [address] Specialist Neurosurgery 12/05/21 Guido Harper PA-C [address] [address] Specialist Neurosurgery 01/15/22 May Reynoso MD [address] [address] Surgeon Neurosurgery 03/26/23 documented as of this encounter
--- OUTSIDE RECORDS SUMMARY | 2025-07-01 16:45 | XMS_ITS | Encounter Summary ---
Author Organization [facility] Prior to 05/26/2024 Address [address] [place] [address] Care Team Providers Care Pneumatic Systems Operator Name Role Phone Shashi Sharma MD Primary Care Provider Becky Scar [place] MD Primary Care Provider Unavail able Daniella Zuleta DO Primary Care Pro vider Unavailable Aung Thompson MD Primary Care Provider Samina Canales MD Primary Care Provider Unavaila Gissell Abarca MD Primary Care Provider Unavail able Ata Welch MD Primary Care Provider Iva Garcia-Gio Unavailable [phone] Guido Harper PA-C Unavailable [phone] Celestine Vargas MD Primary Care Provider [phone] May Reynoso MD Unavailable [phone] Encounter Details Date Type Department Care Team Description 06/04/2013 Hospital Medical Records [address] [place] [address] [facility] Social History Tobacco Use Types Packs/Day [...] on filedocumented in this encounter Care Teams Pneumatic Systems Operator Relationship Specialty Start Date End Date Shashi Sharma MD PCP - General 02/29/08 07/25/14 Scar Otto MD PCP - General Internal Medicine 09/18/14 04/30/15 Daniella Zuleta DO PCP - General Internal Medicine 05/01/15 06/26/15 Aung Thompson MD [address] [place] [address] PCP - General Internal Medicine 06/27/15 05/20/16 Samina Canales MD [address] [place] [address] PCP - General Internal Medicine 05/21/16 10/11/18 Gissell Hernandez MD [address] [place] [address] PCP - General Internal Medicine 10/12/18 08/19/21 Ata Welch MD [address] [place] [address] PCP - General Internal Medicine 08/20/21 05/06/22 Celestine Vargas MD [address] [place] [address] PCP - General Internal Medicine 05/07/22 Iva Garcia PA-C [address] [place] [address] Specialist Neurosurgery 12/05/21 Guido Harper PA-C [address] [address] Specialist Neurosurgery 01/15/22 May Reynoso MD [address] [address] Surgeon Neurosurgery 03/26/23 documented as of this encounter
== END 2025-07-01 16:38 | disposition home or self-care (01) ==
LOC: HO.MRI 16:37
PROVIDERS: PCP Internal Medicine
DX: S63.610A Unspecified sprain of right index finger, initial encounter (principal)
CPT/HCPCS: 73218

== ENCOUNTER 2025-07-10 09:29 | Outpatient (AMB) | payer OTHER, SELFPAY ==
[2025-07-10 09:37] VITALS: BMI 27.8
--- NOTE | 2025-07-10 09:37 | A.OFFVIS_ITS ---
Vital Signs 07/10/25 09:37 Height 5 ft 1 in Weight 147 lb BMI 27.8 Intake Visit Reasons: OV-MRI Hand RT Review- 30 min appt. Intake Note: Deena 45 yr old - hand dominant female presents today for her follow up visit for her MRI review of her right hand for possible RCL tear of right index finger MCP joint Date of injury 06/04/2025. STates her pain has not changes, her index finger continues to hurt and tilt sideways. Allergies Sulfa (Sulfonamide Antibiotics) (SULFA(SULFONAMIDE ANTIBIOTICS)) Allergy (Mild, Verified 07/10/25 09:47) ITCHING naproxen (NAPROXEN) Adverse Reaction (Unknown, Verified 07/10/25 09:47) NAUSEA HPI HPI OV-MRI Hand RT Review- 30 min appt.: Details: Deena is a 45 year old right hand dominant woman who presents for an MRI review of her right index finger injury, after punching a window, DOI: 05/30/25. She complains of pain in her index finger along with limited ROM & she says her index finger pulls to the side . She says she has been taping her fingers together, and denies being given a splint. 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 Review of Systems Const All systems reviewed & are unremarkable except as noted in HPI and below Physical Exam Vital Signs: BMI result Body Mass Index 27.8 Const General: cooperative, healthy appearing and no acute distress Orientation/consciousness: patient oriented x3 HEENT Head: Yes normocephalic and Yes atraumatic Eyes EOM: EOMs intact bilaterally Resp Effort & Inspection: normal respiratory effort and able to speak in complete sentences Cardio Jugular venous distension: no JVD Skin General skin exam: turgor normal Rashes: no rashes Neuro General: patient oriented x3 Extrem Other: Evaluation of Right Upper Extremity: The patient is alert, oriented, and in no acute distress Neuro: Median, Ulnar, Radial nerves motor and sensory intact and sensation is normal to the tips of all digits Vascular: Cap refill brisk ROM: She holds her index finger at rest , ulnarly deviated and resting against the middle finger All the fingers of her contralateral hand were also held in slight ulnar devia tion She can actively extend her index finger, and can also actively abduct the index finger well. She can bring her fingers from a fist back into extension and back into flexion, and her extensor tendon does not subluxate between the two metacarpal heads No good end point of the index finger RCL compared to the contralateral finger Skin: No lacerations or abrasions. General: No Ecchymosis. No Erythema or evidence of infection. Radiographs: 3 views of the right hand from 06/11/25 were reviewed by me today in clinic. They show no fractures or dislocations Right hand MRI Findings: Trace amount of edema in the 2nd metacarpal head, likely posttraumatic/secondary to altered biomechanics. Focal defect in the cortex at the base of the 2nd proximal phalanx at the dorsal aspect deep to the extensor tendon (series 7, image 11). No ossific fragment is seen in this region on the prior radiographs. A distinct fracture line is not identified on this exam. No aggressive osseous lesion. Bone marrow signal is otherwise normal. Subluxation at the 2nd metacarpophalangeal joint. No dislocation. Moderate-sized joint effusion of the 2nd metacarpophalangeal joint. No other joint effusion. The extensor tendon of the 2nd digit is partially torn at the level of the metacarpophalangeal joint with mild subluxation towards the ulnar aspect which likely indicates injury to the sagittal bands (series 3 images 20 through 23). The extensor tendon of the 2nd digit is otherwise intact. The other flexor and extensor tendons are intact and normal in signal. There is marked increase in signal in the radial collateral ligament of the 2nd metacarpophalangeal joint with near-complete tear (series 6 images 5 through 8). There is mild increase in signal with suspected partial tear in the ulnar collateral ligament of the 2nd metacarpophalangeal joint (series 6 images 5 through 8). The ligaments are otherwise intact. There is a mild amount of edema within the musculature adjacent to the 2nd metacarpal head. The musculature is otherwise normal in signal. The musculature is normal in bulk. Normal vessels and nerves. Impression: Injury to the 2nd metacarpophalangeal joint with associated trace amount of edema in the 2nd metacarpal head, focal defect in the cortex of the base of the 2nd proximal phalanx, moderate-sized joint effusion, partial tear of the extensor tendon with mild subluxation and injury to the sagittal bands, near-complete tear of the radial collateral ligament and sprain versus partial tear of the ulnar collateral ligament. This document has been electronically signed by: Tamika Woods MD on 07/01/2025 Psych Appearance: grossly normal Affect: normal affect Attitude: cooperative Assessment & Plan Assessment & Plan (1) Sagittal band rupture, extensor tendon, nontraumatic: Comment: R IF Code(s): M66.249 - Spontaneous rupture of extensor tendons, unspecified hand Category: Medical Plan Assessment & Plan: 1. Right index finger MCP joint partial radial sagittal band injury 2. Right index finger MCP joint radial collateral ligament injury Both After punching a window, DOI: 05/30/25 I educated her about this condition I discussed operative and non-operative treatment options. At this time I recommend we manage this conservatively, but she may still benefit from surgery in the future. The patient would like to proceed with splinting & activity modification I ordered OT hand therapy to have a custom hand based finger splint made, which allows for PIP & DIP joint ROM and limits MCP joint flexion to about 40 degrees, and holds the index finger radially so there is no ulnar deviation at the MCP joint. She will wear this for the next 6 weeks, like a cast except for showering She will work on gentle ROM exercises at home, while in her splint She will follow up 4-5. Please note that greater than 30 minutes was spent with this patient going over the history, evaluating the patient and radiographs, formulating possible treatment options, discussing them with the patient, and documenting the visit. Scribed for Leslee Maya MD by Anderson Rosenberg, medical scientist, on 07/10/25 at 9:50 AM, EST. Orders: Orders OT Evaluation and Treatment Today M66.249 - Spontaneous rupture of extensor tendons, unspecified hand, S63.610A - Unspecified sprain of right index finger, initial encounter Coding Level of Care Code Est Pt Level 4 (38931) Diagnoses Sagittal band rupture, extensor tendon, nontraumatic M66.249
--- OUTSIDE RECORDS SUMMARY | 2025-07-10 11:05 | XMS_ITS | Clinical Summary ---
Author Organization [facility] Prior to 12/23/24 Address [address] [place] [address] Care Team Providers Care Marine Farmer Name Role Phone Unavailable Primary Care Provider [...] Self [address] [place] [address]
--- OUTSIDE RECORDS SUMMARY | 2025-07-10 11:05 | XMS_ITS | Clinical Summary ---
Author Organization [facility] [address] [place] [address] [address] [place] [address] Phone Care Team Providers Care Sweatband Cutting Machine Operator Name Role Phone Celestine Vargas MD Primary [...] MOUTH DAILY 30 tablet 3 5 Active Ventolin HFA 90 mcg/actuation inhalerIndicatio ns:Moderate [...] months. Obstructive sleep apnea 11/06/2021 Overview (08/02/2024): [facility] Home sleep test 11/03/2021; weight 180; [...] older (Afluria) 3 years and older 05/15/2013,05/11/2012,05/18/2011,05/19,04/10/2009,06/08/2008 Quickshift SARS-CoV-2 COVID-19, mRNA, LNP-S, preservative free 05/05/2021 [...] care for your loved ones. For example, early childhood worker or elderly care for an older adult? [...] Breast cancer risk category Low (<15%) Location: [facility], [address] [place] [address], [phone], [phone] Procedure Note Mariela Melendez MD - 06/19/2024 [...] Breast cancer risk category Low (<15%) Location: [facility], [address] [place] [address], [id number], [phone] Result [facility] Talya Mazariegos MD IMG XR PROCEDURES Final Res ult * Cervical Cancer Screening: HPV (12/23/2022) Pathologist [facility] Cervical Cancer Screening: HPV Negative, Abstracted Historical Provider HEALTH MAINTENANCE Final Result * HIV Screening (07/10/2022) [facility] HIV Screening Abstracted Historical Provider HEALTH MAINTENANCE Final Result * Hepatitis C Screening (07/10/2022) Pathologist [facility] Hepatitis C Screening Abstracted Result [facility] Historical Provider HEALTH MAINTENANCE Final Result * (ABNORMAL) Lipid panel (04/03/2022) [facility] LDL/HDL Ratio 5(A) 0 - 4 Triglycerides 239(A) 0 - 150 mg/dL Cholesterol 285(A) 0 - 200 mg/dL HDL 56 >=40 mg/dL LDL Cholesterol 182(A) 0 - 100 mg/dL Blood Venous blood specimen / Unknown Result [facility] Historical Provider LAB BLOOD ORDERABLES Arleen l Result from Last 3 Months or Most Recently Relevant to Health Maintenance Insurance [facility] Care Teams Sweatband Cutting Machine Operator Relationship Specialty Start Date End Date Celestine Vargas MD [address] [place] [address] PCP - General Internal Medicine 05/07/22
--- OUTSIDE RECORDS SUMMARY | 2025-07-10 11:05 | XMS_ITS | Clinical Summary ---
Author Organization [facility] Address [address] [place] [address] Care Team Providers Care Dining Car Steward Name Role Phone Leonardo Honeycutt Primary Care Provider [phone] Allergies No known active allergies Social History [...] Completed Insurance [place] [facility] Care Teams Dining Car Steward Relationship Specialty Start Date End Date Yinka, [facility] [address] [place] [address] PCP - General
== END 2025-07-10 10:49 | disposition home or self-care (01) ==
LOC: HO.HOS 09:30
PROVIDERS: PCP Internal Medicine; Visit Provider Orthopaedic Surgery
DX: M66.249 Spontaneous rupture of extensor tendons, unspecified hand (principal)
CPT/HCPCS: 99213

== ENCOUNTER → 2025-07-10 09:29 | Outpatient (BNVA) | payer OTHER, SELFPAY | PROVIDERS: PCP Internal Medicine; Visit Provider Orthopaedic Surgery | DX: M66.249 Spontaneous rupture of extensor tendons, unspecified hand (principal) | CPT/HCPCS: 99212 ==